=== PATIENT | male | born 1940 | race Caucasian/White ===

== ENCOUNTER 2019-11-14 08:00 | Outpatient (CLI) | payer OTHER, SELFPAY ==
--- NOTE | 2019-11-14 08:03 | CT_ITS ---
WS: [id number] CT CHEST WITH INTRAVENOUS CONTRAST HISTORY: COUGH TECHNIQUE: Contiguous 5 mm axial imaging performed on the thorax. Coronal and sagittal reformats are submitted. All CT scans at [facility] use at least one of these dose optimization techniq ues: automated exposure control; mA and/or kV adjustment per patient size (includes targeted exams wh ere dose is matched to clinical indication); or iterative reconstruction. CONTRAST: Omnipaque 300; 95 mL IV. DLP: 650.25 mGy.cm COMPARISON: 09/07/2011 Lungs and central airway: Moderate left-sided volume loss. LEFT lower lobectomy. There is extensive p leural calcification present bilaterally. Mild pleural thickening throughout the LEFT pleural space. The extent of the pleural thickening and calcification is similar to prior studies. No suspicious mas ses or nodules are identified. Pleura: Extensive pleural calcification is stable. Heart and pericardium: Mild enlargement of the heart chambers. No pericardial effusion. Mediastinum and adri: No mediastinal or hilar adenopathy. Prior CABG. Vessels: Extensive calcification in the [place] coronary arteries. Moderate atherosclerotic plaque wit hin the aorta. Pulmonary artery size is enlarged measuring 3.4 cm diameter. Chest wall and lower neck: Subxiphoid hernia. Herniation of adipose tissue through the defect. Upper abdomen: Small hiatal hernia. Bilateral renal cysts. Bilateral renal masses are too small to ch aracterize. The largest cyst is incompletely visualized in the LEFT kidney measuring 2.3 x 4.5 cm. No adrenal mass. Visualized gallbladder is negative. Osseous structures: Mild increased kyphosis. CT/CT chest w con* [id number] IMPRESSION: 1. 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 2. No suspicious mass or nodule. 3. Partial LEFT lung resection is stable.
[2019-11-14] MEDS: iohexol 300 mg/mL 100 mL Btl IV (08:33)
== END 2019-11-14 08:01 | disposition home or self-care (01) ==
LOC: CT 08:01
PROVIDERS: Family Provider Family Medicine; Visit Provider Family Medicine
DX: R05 Cough (principal); J94.8 Other specified pleural conditions
CPT/HCPCS: 71260

== ENCOUNTER 2020-04-22 | Outpatient (CLI) | payer OTHER, SELFPAY | END 2020-04-22 23:00 | disposition home or self-care (01) | LOC: RAD 05-15 12:39 | PROVIDERS: PCP Emergency Medicine Emergency Medical Services; Visit Provider Internal Medicine Critical Care Medicine | DX: I25.10 Atherosclerotic heart disease of native coronary artery without angina pectoris (principal); R07.9 Chest pain, unspecified | CPT/HCPCS: 93017 ==

== ENCOUNTER 2020-04-22 07:21 | Outpatient (CLI) | payer OTHER, SELFPAY ==
--- NOTE | 2020-04-22 08:00 | USCV_ITS ---
Yony Renzo Age: 79 Gender: M : 1940 Exam Date: 04/22/2020 08:27 Ordering Phys: Bette Carvalho MD Technologist: Jake Garsia Exam Location: [facility] [place]: HEART FAILURE BP: 130 / 75 HR: 68 Rhythm: Sinus Technical Quality: Good MEASUREMENTS (Male / Female) Normal Values 2D ECHO LV Diastolic Diameter PLAX 3.9 cm 4.2 - 5.9 / 3.9 - 5.3 cm LV Systolic Diameter PLAX 2.3 cm IVS Diastolic Thickness 0.9 cm 0.6 - 1.0 / 0.6 - 0.9 cm IVS Systolic Thickness 1.5 cm LVPW Diastolic Thickness 1.1 cm 0.6 - 1.0 / 0.6 - 0.9 cm LVPW Systolic Thickness 1.2 cm LVOT Diameter 2.0 cm LV Ejection Fraction 2D Teich 72.7 % LV Ejection Fraction MOD 2C 50.4 % LV Ejection Fraction 2C AL 50.1 % LA Diameter 4.8 cm LA Width 3.9 cm LA Height 5.1 cm RA Width 4.2 cm RA Height 4.6 cm Aorta at Sinotubular Diameter 2.7 cm M-MODE LV Diastolic Diameter MM 5.6 cm 4.2 - 5.9 / 3.9 - 5.3 cm LV Systolic Diameter MM 3.0 cm LV Ejection Fraction MM Teich 77.3 % IVS Diastolic Thickness MM 1.2 cm 0.6 - 1.0 / 0.6 - 0.9 cm IVS Systolic Thickness MM 2.1 cm LVPW Diastolic Thickness MM 1.3 cm 0.6 - 1.0 / 0.6 - 0.9 cm LVPW Systolic Thickness MM 1.8 cm RV Diastolic Diameter MM 1.2 cm Aortic Annulus Diameter 3.8 cm LA Ao Ratio MM 1.3 MV E Point Septal Separation 0.7 cm DOPPLER AV Peak Velocity 129.0 cm/s LVOT Peak Velocity 84.0 cm/s AV Area Cont Eq vti 2.4 cm squared AV Area Cont Eq pk 2.1 cm squared MV Area PHT 5.0 cm squared Mitral E to A Ratio 1.1 MV E' Velocity 9.0 cm/s Mitral E to MV E' Ratio 10.7 Mitral E to LV E' Lateral Ratio 9.2 Mitral E to LV E' Septal Ratio 13.0 TR Peak Velocity 356.0 cm/s TR Peak Gradient 50.8 mmHg TV Peak E Velocity 71.0 cm/s Right Atrial Pressure 3.0 mmHg Pulmonary Artery Systolic Pressu 53.7 mmHg PV Peak Velocity 97.0 cm/s FINDINGS Left Ventricle Normal left ventricular cavity size. Normal left ventricular systolic function. No regional wall motion abnormalities. Left ventricular ejection fraction is estimated at 65 %. Grade I/IV diastolic dysfunction (abnormal relaxation filling pattern), normal to mildly elevated filling pressures. Right Ventricle The right ventricle is normal in size and function. Moderate pulmonary hypertension, RVSP 53.7 mmHg. Right Atrium The right atrium is normal in size. Left Atrium Moderately increased left atrial size. Mitral Valve Moderately thickened mitral valve. Moderate mitral annular calcification. Mild mitral valve regurgitation. Aortic Valve Mild aortic valve calcification. No aortic valve stenosis. Tricuspid Valve Mild tricuspid valve regurgitation. Pulmonic Valve Trace pulmonary valve regurgitation. Pericardium Normal pericardium without effusion. Aorta Normal ascending aorta dimension. CONCLUSIONS 1-Normal left ventricular cavity size. Normal left ventricular systolic function. No regional wall motion abnormalities. Left ventricular ejection fraction is estimated at 65 %. Grade I/IV diastolic dysfunction (abnormal relaxation filling pattern), normal to mildly elevated filling pressures. 2-Moderately increased left atrial size. 3-Moderately thickened mitral valve. Moderate mitral annular calcification. Mild mitral valve regurgitation. 4-Mild tricuspid valve regurgitation. 5-The right ventricle is normal in size and function. Moderate pulmonary hypertension, RVSP 53.7 mmHg. 6-Right atrial pressure is around 5 mm of mercury. 7-There are no prior echocardiogram studies to compare. Gianluca Shaver MD (Electronically Signed) Final Date: 22 April 2020 23:09 S
--- NOTE | 2020-04-22 08:08 | ECG_ITS ---
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 Interpretive Statements NAME OF STUDY: LEXISCAN SESTAMIBI STRESS TEST INDICATION: Chest Pain NOTE: Please note that this is the electrocardiogram portion of the Lexiscan/Sestamibi stress test. The perfusion scan will be documented separately. DATA: Baseline heart rate was 62 beats per minute. Baseline blood pressure was 141/71 millimeters of mercury. Target heart rate was 143. Maximum heart rate achieved was 75. which was 52 % of the predicted target heart rate. Maximum blood pressure was 144/77 millimeters of mercury. The reason for ending the test was completion of the protocol. The patient did not experience any symptoms. ELECTROCARDIOGRAM: BASELINE: Sinus rhythm. Normal axis. Otherwise, no ST-T changes suggestive of ischemia noted. No arrhythmia noted. EXERCISE: After Lexiscan injection, PVCs were noted, no ST-T changes suggestive of ischemic noted. CONCLUSION: Please note due to baseline abnormality of the EKG specificity and sensitivity of the EKG portion of LexiScan MIBI stress test will be low 1. EKG not suggestive of ischemia 2. Lexiscan injection unremarkable. 3. Perfusion scan will be documented separately. Electronically Signed On 05-01-2020 19:28:22 CDT by Gianluca Shaver M.D. [id number]
--- NOTE | 2020-04-22 08:09 | NMCV_ITS ---
NM eugene perf SPECT r/s* [id number] Renzo Bhakta Age: 79 Gender: M : 1940 Exam Date: 04/22/2020 08:45 Ordering Phys: Bette Carvalho MD Technologist: FRANCHESCA Jefferson Exam Location: [facility] Indications: HEART FAILURE STRESS TEST Please see separate stress test report in [facility] for full findings IMAGE PROTOCOL Rest/Stress 1 Lexiscan Day Radiopharmaceutical Dose (mCi) Administration Site Administered by Rest: Tc-99m 10.7 IV FRANCHESCA Wilson Sestamibi Stress:Tc-99m 32.9 IV FRANCHESCA Wilson Sestamibi Rest: 22-Apr-2020 60 Discovery 630 Stress: 22-Apr-2020 30 Discovery 630 0.4mg Lexiscan. Images obtained in supine and prone position. SPECT RESULTS Technical Quality: Excellent Raw Data Analysis: Normal Image Corrections: No attenuation or motion correction applied Summed Stress Score: 0 Summed Rest Score: 0 Summed Difference Score: 0 PERFUSION FINDINGS SPECT images demonstrate homogeneous tracer distribution throughout the myocardium. FUNCTIONAL RESULTS (calculated via Gated SPECT) Stress Image LV EF (%): 71 Stress EDV (mL):89 TID: 0.94 Stress ESV (mL):26 FUNCTIONAL FINDINGS: The left ventricle is normal in size. Transient Ischemia Dilatation of 0.94. There is normal left ventricular systolic function. There is normal left ventricular wall thickening. The left ventricular ejection fraction is normal with a value of 71%. Normal end-diastolic and end-systolic volumes. IMPRESSIONS 1. Myocardial perfusion imaging is normal. 2. Overall left ventricular systolic function is normal without regional wall motion abnormalities. 3. The left ventricular ejection fraction is normal with a value of 71%. 4. This study suggests a low likelihood of angiographically significant coronary artery disease. Nancy Silveira MD (Electronically Signed) Final Date: 22 April 2020 17:49 S
[2020-04-22 08:10] VITALS: BMI 25.7
[2020-04-22 09:48] VITALS: BP 133/67; PULSE 71
[2020-04-22] MEDS: regadenoson 0.4 Mg/5 ml Syringe IVP (09:50)
== END 2020-04-22 07:22 | disposition home or self-care (01) ==
PROVIDERS: PCP Emergency Medicine Emergency Medical Services; Visit Provider Internal Medicine Critical Care Medicine
DX: R07.9 Chest pain, unspecified (principal); R06.02 Shortness of breath; I50.9 Heart failure, unspecified; I08.1 Rheumatic disorders of both mitral and tricuspid valves; I27.20 Pulmonary hypertension, unspecified
CPT/HCPCS: 78452; 93306; A9500; J2785

== ENCOUNTER 2020-04-30 11:00 | Outpatient (CLI) | payer OTHER, SELFPAY | END 2020-04-30 11:01 | disposition home or self-care (01) | LOC: SLEEP 05-01 11:21 | PROVIDERS: PCP Emergency Medicine Emergency Medical Services; Visit Provider Internal Medicine Critical Care Medicine | DX: I50.9 Heart failure, unspecified (principal) | CPT/HCPCS: 94762 ==

== ENCOUNTER → 2020-06-04 10:00 | Outpatient (BNVA) | payer OTHER, SELFPAY | PROVIDERS: PCP Emergency Medicine Emergency Medical Services; Visit Provider Internal Medicine | DX: R06.02 Shortness of breath (principal) | CPT/HCPCS: 87635 ==

== ENCOUNTER 2020-06-06 07:33 | Outpatient (CLI) | payer OTHER, SELFPAY ==
[2020-06-06 08:48] VITALS: O2SAT 77; O2SAT 90; O2SAT 92
--- NOTE | 2020-06-06 09:37 | PFTS_ITS ---
Date of Study:06/06/20 Date of Dictation: 06/07/2020 MECHANICS: Forced vital capacity (FVC) is . Normal Forced expiratory volume in one second (FEV1) is . Normal FEV1/FVC is .. Normal No postbronchodilator study to comment on bronchodilator response FLOW VOLUME LOOP: Normal . LUNG VOLUMES: Total lung capacity (TLC) is normal. Residual volume (RV) is . Normal DIFFUSING CAPACITY FOR CARBON MONOXIDE: Moderately reduced . INTERPRETATION: Normal spirometry and lung volumes with moderately reduced gas transfer defect suggestive of pulmonary vascular pathology. Correlate clinically MTDD
== END 2020-06-06 07:34 | disposition home or self-care (01) ==
PROVIDERS: PCP Emergency Medicine Emergency Medical Services; Visit Provider Internal Medicine Critical Care Medicine
DX: I50.9 Heart failure, unspecified (principal); J44.9 Chronic obstructive pulmonary disease, unspecified
CPT/HCPCS: 94010; 94726; 94729

== ENCOUNTER 2021-03-14 11:34 | Emergency (ER) | payer OTHER, MEDICARE, SELFPAY ==
[2021-03-14 11:43] VITALS: BP 110/83; PULSE 82; RESP 30; TEMP 36.4; O2SAT 77; BMI 24.1
--- NOTE | 2021-03-14 12:10 | XR_ITS ---
WS: [id number] Exam: XR chest 1V portable [id number] Date/Time of Exam: 03/14/2021 12:10 PM Reason For Exam: SOB Comparison 10/25/2019. No acute infiltrates are seen. Extensive pulmonary parenchymal scarring and calcified pleural plaque formation noted. There are also calcified pleural plaques along both hemidiaphragms. Pleural thickeni ng at the costophrenic angles. Heart size is top limits normal. No pneumothorax. Signs of previous me sarah sternotomy. Signs of previous left thoracotomy. XR/XR chest 1V portable [id number] IMPRESSION: 1. Extensive changes of pulmonary fibrosis and calcified pleural plaque formati on involving the pleural cavities as well as the bilateral diaphragms. Asbestos -related lung disease might be a consideration. No overall change noted since p revious exam. 2. No acute process is suspected.
--- NOTE | 2021-03-14 12:10 | ECG_ITS ---
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 Measurements Intervals [place] Rate: 80 P: 62 AR: 166 QRS: 100 QRSD: 110 T: 149 QT: 374 QTc: 433 Interpretive Statements SINUS RHYTHM WITH OCCASIONAL VENTRICULAR PREMATURE COMPLEXES POSSIBLE LEFT ATRIAL ENLARGEMENT [-0.1mV P WAVE IN V1/V2] INDETERMINATE AXIS INCOMPLETE RIGHT BUNDLE BRANCH BLOCK [90+ ms QRS DURATION, TERMINAL R IN V1/V2, 40+ ms S IN I/aVL/V4/V5/V6] ST DEVIATION AND MODERATE T-WAVE ABNORMALITY, CONSIDER LATERAL ISCHEMIA [-0.1+ mV T WAVE IN I/aVL/V5/V6] No previous ECG available for comparison Electronically Signed On 03-14-2021 22:23:46 CDT by Nancy Silveira M.D. [id number]
--- NOTE | 2021-03-14 12:11 | ED_ITS ---
HPI - SOB/Dyspnea General: Chief Complaint: Shortness of Breath/Dyspnea Stated Complaint: SOB Time Seen by Provider: 03/14/21 11:56 Source: patient Mode of arrival: ambulatory Limitations: no limitations History of Present Illness: HPI Narrative: Patient is a 80-year-old male with a history of hypertension and diabetes mellitus and coronary artery disease status post CABG who presents to the emergency department with complaints of progressively worsening shortness of breath for the last 2 months or so. He states that he is not requiring oxygen supplementation and has been using oxygen at 6 L/min as needed. He states that in the last few days to 1 week he has required oxygen basically all the time. He however does not have a portable oxygen device at home. He noticed leg swelling in the last 2 days. He also endorses orthopnea. He does not have a diagnosis of congestive heart failure. MD elicited complaint: shortness of breath Onset (ago): month(s) (2) Timing: constant and progressively worsening Associated symptoms: Reports orthopnea; Deny abdominal pain, chest congestion, chest pain, cough, diaphoresis, dizziness, extremity pain, fever(s), hemoptysis, lightheadedness, myalgias, nausea, palpitations, paresthesias, polydipsia, polyuria, rash, sense of impending doom, syncope or vomiting Treatment prior to arrival: oxygen Review of Systems General: Reports: 10 or more systems reviewed and unremarkable except in HPI and below Const: Denies: fever(s) or diaphoresis Card: Reports: orthopnea; Denies: chest pain, palpitations, lightheadedness or syncope Resp: Denies: hemoptysis or chest congestion GI: Denies: abdominal pain, nausea or vomiting Musc: Denies: extremity pain Neuro: Denies: dizziness Endo: Denies: polyuria or polydipsia PFS ED PFSH: Medical History Allergic rhinitis Atelectasis of left lung Atherosclerotic heart disease of [place] coronary artery with unspecified angina pectoris BPH (benign prostatic hyperplasia) COPD (chronic obstructive pulmonary disease) Dysplasia of prostate Essential (primary) hypertension Hyperlipidemia Tinea unguium Type 2 diabetes mellitus Surgical History History of lung surgery Hx of CABG Family History Mother CAD (coronary artery disease) Father CAD (coronary artery disease) Social History Smoking and tobacco status: never smoked Alcohol intake: never Lives independently: Yes Household members: none Marital status: Single service: Yes Current occupational status: retired History of recent travel: No Current gender identity: Male Physical Exam Const: COMMON NORMALS: no acute distress, average body habitus, patient oriented x3, no limitations, healthy appearing, alert and well nourished HENMT: COMMON NORMALS: normocephalic, atraumatic and moist oral mucous membranes HEAD & SCALP: normocephalic and atraumatic Neck/C-Spine: COMMON NORMALS: no meningeal signs and no JVD Resp: COMMON NORMALS: No retractions, No use of accessory muscles and percussion normal EFFORT & INSPECTION: Yes tachypneic AUSCULTATION: rales PERCUSSION: percussion normal Cardio: COMMON NORMALS: no JVD, regular rate, regular rhythm, S1 normal heart sound present, S2 normal heart sound present, No gallops present (Cardio), No clicks present (Cardio), No murmurs present (Cardio), No rub (Cardio) and Peripheral pulses 2+ throughout RATE: regular rate RHYTHM: regular rhythm HEART SOUNDS: S1 normal heart sound present and S2 normal heart sound present PERIPHERAL PULSES: Peripheral pulses 2+ throughout GI: COMMON NORMALS: Normal to inspection, nondistended, normoactive bowel sounds present, Soft to palpation, non-tender, No hepatosplenomegaly present, no masses and no bruits PALPATION: Yes Soft to palpation and Yes No hepatosplenomegaly present Extremity: COMMON NORMALS: normal to inspection, full ROM, capillary refill normal and no calf tenderness GENERAL: Yes edema (3+ pitting pedal edema) Neuro: COMMON NORMALS: patient oriented x3 SENSORIUM/ORIENTATION: Yes alert MENINGEAL SIGNS: Yes no meningeal signs Skin: COMMON NORMALS: no rashes or lesions noted, no wounds, turgor normal, no jaundice, no petechiae and no mottling GENERAL SKIN EXAM: no rashes or lesions noted and turgor normal Course Reevaluation(s): Reevaluation #1: Discussed his lab and imaging findings with him. It appears that he may be in congestive heart failure. Advised hospital admission for intravenous diuretics but the patient declines and wants to be discharged home. He says he would like to be worked up outpatient. We will discharge him home. He will be advised to double the dose of his Lasix for a few days and then return back to his regular dose after 3 days. He voiced understanding and is in agreement with the plan Time: 15:29 Vital Signs: Vital signs: Vital Signs Temperature 97.5 F L 03/14/21 11:43 Pulse Rate 74 03/14/21 15:54 Respiratory Rate 20 H 03/14/21 15:54 Blood Pressure 114/67 03/14/21 15:54 Pulse Oximetry 92 03/14/21 15:54 MDM - SOB/Dyspnea MDM Narrative: Medical decision making narrative: 80-year-old male who presents to the emergency department with increased shortness of breath and weakness. Evaluation in the emergency department is consistent with CHF exacerbation. He was advised to be admitted to the hospital but the patient declined and decided that he wanted to try outpatient therapy. He is advised to increase the dose of his Lasix for a few days and then after 3 days return to his prior dose. He understands to return for any new or worsening symptoms. Medical Records: Attestation: I reviewed the patient's medical records. Lab Data: Attestation: I reviewed the patient's lab results. Labs: Lab Results 03/14/21 03/14/21 03/14/21 Range/Units 12:10 12:10 12:10 WBC 10.8 H (4.0-10.0) 10^3/ uL RBC 5.41 H (4.1-5.3) 10^6/u L Hgb 14.9 (11.7-16.6) g/dL Hct 46.9 (42.0-52.0) % MCV 86.7 (80-94) fL MCH 27.5 L (28.0-34.0) pg MCHC 31.8 (30.0-36.0) g/dL RDW 14.8 (12.1-15.1) % Plt Count 228 (130-400) 10^3/c mm MPV 11.7 H (7.4-10.4) fL Neut % (Auto) 76.4 % Lymph % (Auto) 13.3 % Orange % (Auto) 7.7 % Eos % (Auto) 1.6 % Baso % (Auto) 0.6 % Neut # (Auto) 8.24 H (1.8-7.7) 10^3/u L Lymph # (Auto) 1.4 (0.8-4.8) 10^3/u L Orange # (Auto) 0.8 (0.2-0.9) 10^3/u L Eos # (Auto) 0.2 (0.0-0.8) 10^3/u L Baso # (Auto) 0.1 (0.0-0.1) 10^3/u L Nucleated RBC % (a uto) 0 % Nucleated RBCs # 0.0 /100WBC Specimen Type Sample Site ABG pH (7.35-7.45) ABG pCO2 (35-45) mmHg ABG pO2 (80.0-100.0) mmH g ABG HCO3 (22-26) mmol/L ABG Base Excess (-2.0-2.0) mmol/ L Yonas Test Hematocrit (42-52) % O2 Delivery Device O2 Liters/Min % FiO2 % Seed Packer ID Sodium 136 (136-145) mmol/L Potassium 3.9 (3.5-5.1) mmol/L Chloride 100 (98-107) mmol/L Carbon Dioxide 21 L (22-29) mmol/L Anion Gap 18.9 (5-19) BUN 17 (8-23) mg/dL Creatinine 1.2 (0.7-1.2) mg/dL GFR Calculation Not Reportable Glucose 141 H (65-115) mg/dL Calculated Osmolal ity 286 (285-295) mOsm/k g Lactic Acid 4.0 H (0.5-2.2) mmol/L Lactic Acid (Sepsi s) (0.5-2.2) mmol/L Calcium 9.9 (8.5-10.5) mg/dL Total Bilirubin 0.9 (0.15-1.2) mg/dL AST 23 (0-40) U/L ALT 10 (0-41) U/L Alkaline Phosphata se 66 (40-130) IU/L Troponin T Baselin e (0-15) ng/L Troponin T 120 Min [place] (0-15) ng/L Delta Troponin T (0-10) ABS# NT-Pro-B Natriuret Pep 1208 H (0-450) pg/mL Total Protein 7.3 (6.6-8.7) g/dL Albumin 4.5 (3.5-5.2) g/dL Globulin 2.8 (1.3-4.6) g/dL 03/14/21 03/14/21 03/14/21 Range/Units 12:10 12:11 14:53 WBC (4.0-10.0) 10^3/ uL RBC (4.1-5.3) 10^6/u L Hgb (11.7-16.6) g/dL Hct (42.0-52.0) % MCV (80-94) fL MCH (28.0-34.0) pg MCHC (30.0-36.0) g/dL RDW (12.1-15.1) % Plt Count (130-400) 10^3/c mm MPV (7.4-10.4) fL Neut % (Auto) % Lymph % (Auto) % Orange % (Auto) % Eos % (Auto) % Baso % (Auto) % Neut # (Auto) (1.8-7.7) 10^3/u L Lymph # (Auto) (0.8-4.8) 10^3/u L Orange # (Auto) (0.2-0.9) 10^3/u L Eos # (Auto) (0.0-0.8) 10^3/u L Baso # (Auto) (0.0-0.1) 10^3/u L Nucleated RBC % (a uto) % Nucleated RBCs # /100WBC Specimen Type Arterial Sample Site Radial, right ABG pH 7.48 H (7.35-7.45) ABG pCO2 28.3 L (35-45) mmHg ABG pO2 61.0 L (80.0-100.0) mmH g ABG HCO3 21.3 L (22-26) mmol/L ABG Base Excess -0.9 (-2.0-2.0) mmol/ L Yonas Test Pos Hematocrit 44.6 (42-52) % O2 Delivery Device Nc O2 Liters/Min 6.0 % FiO2 44.0 % Seed Packer ID Ed Sodium (136-145) mmol/L Potassium (3.5-5.1) mmol/L Chloride (98-107) mmol/L Carbon Dioxide (22-29) mmol/L Anion Gap (5-19) BUN (8-23) mg/dL Creatinine (0.7-1.2) mg/dL GFR Calculation Glucose (65-115) mg/dL Calculated Osmolal ity (285-295) mOsm/k g Lactic Acid (0.5-2.2) mmol/L Lactic Acid (Sepsi s) (0.5-2.2) mmol/L Calcium (8.5-10.5) mg/dL Total Bilirubin (0.15-1.2) mg/dL AST (0-40) U/L ALT (0-41) U/L Alkaline Phosphata se (40-130) IU/L Troponin T Baselin e 37 H (0-15) ng/L Troponin T 120 Min [place] 30.14 H (0-15) ng/L Delta Troponin T -6.86 L (0-10) ABS# NT-Pro-B Natriuret Pep (0-450) pg/mL Total Protein (6.6-8.7) g/dL Albumin (3.5-5.2) g/dL Globulin (1.3-4.6) g/dL 03/14/21 Range/Units 14:53 WBC (4.0-10.0) 10^3/ uL RBC (4.1-5.3) 10^6/u L Hgb (11.7-16.6) g/dL Hct (42.0-52.0) % MCV (80-94) fL MCH (28.0-34.0) pg MCHC (30.0-36.0) g/dL RDW (12.1-15.1) % Plt Count (130-400) 10^3/c mm MPV (7.4-10.4) fL Neut % (Auto) % Lymph % (Auto) % Orange % (Auto) % Eos % (Auto) % Baso % (Auto) % Neut # (Auto) (1.8-7.7) 10^3/u L Lymph # (Auto) (0.8-4.8) 10^3/u L Orange # (Auto) (0.2-0.9) 10^3/u L Eos # (Auto) (0.0-0.8) 10^3/u L Baso # (Auto) (0.0-0.1) 10^3/u L Nucleated RBC % (a uto) % Nucleated RBCs # /100WBC Specimen Type Sample Site ABG pH (7.35-7.45) ABG pCO2 (35-45) mmHg ABG pO2 (80.0-100.0) mmH g ABG HCO3 (22-26) mmol/L ABG Base Excess (-2.0-2.0) mmol/ L Yonas Test Hematocrit (42-52) % O2 Delivery Device O2 Liters/Min % FiO2 % Seed Packer ID Sodium (136-145) mmol/L Potassium (3.5-5.1) mmol/L Chloride (98-107) mmol/L Carbon Dioxide (22-29) mmol/L Anion Gap (5-19) BUN (8-23) mg/dL Creatinine (0.7-1.2) mg/dL GFR Calculation Glucose (65-115) mg/dL Calculated Osmolal ity (285-295) mOsm/k g Lactic Acid (0.5-2.2) mmol/L Lactic Acid (Sepsi s) 2.3 H (0.5-2.2) mmol/L Calcium (8.5-10.5) mg/dL Total Bilirubin (0.15-1.2) mg/dL AST (0-40) U/L ALT (0-41) U/L Alkaline Phosphata se (40-130) IU/L Troponin T Baselin e (0-15) ng/L Troponin T 120 Min [place] (0-15) ng/L Delta Troponin T (0-10) ABS# NT-Pro-B Natriuret Pep (0-450) pg/mL Total Protein (6.6-8.7) g/dL Albumin (3.5-5.2) g/dL Globulin (1.3-4.6) g/dL Imaging Data^: CTA Chest: Attestation: I personally reviewed and interpreted this imaging study as follows: Radiologist's impression: [address] [id number] Scan ReportSigned Patient: Azeb Bhakta #: [id number]: 1940cct#:[id number]/Sex: 80 / MADM Date: 03/14/21Loc: ERRoom/Bed:Attending Dr: Ordering Provider/Ordering MD: Aydin Waterman MD, YANETH Date of Service: 03/14/21 Procedure(s): CT angio chest PE protcl [id number] Accession Number(s): [id number] Report Number: [id number] WS: [id number] CTA OF THE CHEST WITH PULMONARY EMBOLISM PROTOCOL TECHNIQUE: High-resolution contrast enhanced CTA of the chest with coronal and sagittal reformatted images with pulmonary embolism protocol. MIP images are also reviewed. CLINICAL INFORMATION: SOB, tachypnea, hypoxia COMPARISON: CT October, DLP: 532.[address] scans at [facility] use at least one of these dose optimization techniques: automated exposure control; mA and/or kV adjustment per patient size (includes targeted exams where dose is matched to clinical indication); or iterative reconstruction. FINDINGS: Proximal main pulmonary arteries are normal. Segmental and subsegmental pulmonary arteries appear patent. No evidence of pulmonary embolus. Small right pleural effusion with compressive atelectasis right lower lobe. Bilateral pleural plaques. Normal caliber thoracic aorta. Aortic calcification. Coronary calcification. Calcified subcarinal and right hilar lymph nodes. Prior postoperative changes partial left lobectomy. No acute pulmonary infiltrates. No focal pneumonia. Noncalcified hazy opacity left upper lobe measuring 10 mm. Recommend 3 month follow-up. Normal thoracic spine. Normal GE junction. Adrenal glands are normal. Partially visualized right renal cyst. CT/CT angio chest PE protcl [id number] IMPRESSION: 1. No evidence of pulmonary embolus. 2. Prior postoperative changes left partial lobectomy. Volume loss left lung. 3. Small right pleural effusion with compressive atelectasis right lower lobe. 4. Noncalcified hazy opacity left upper lobe measuring 10 mm. Recommend 3 month follow-up. 5. Bilateral pleural plaques are unchanged. Dictated By:Herbie Redman MDSigned By:Herbie Redman MDSigned Date/Time:03/14/21 [id number]/ 1328 EKG Data^: EKG 1: Attestation: I personally reviewed and interpreted this EKG as follows: EKG Interpretation Date: 03/14/21 EKG interpretation time: 12:51 Prior EKG tracings: available for review Interpretation: Sinus rhythm with occasional PVCs. Heart rate [address] changes. Discharge Plan Discharge Patient Disposition: Home Clinical Impression: Elevated troponin Congestive heart failure Qualifiers: Heart failure type: unspecified Heart failure chronicity: acute Qualified Code(s): I50.9 - Heart failure, unspecified Condition: Stable Prescriptions: Continued albuterol sulfate [ProAir HFA] 90 mcg/actuation HFA aerosol inhaler 2 puff INHALATION Q6H PRNRF: 0 budesonide-formoterol [Symbicort] 160-4.5 mcg/actuation HFA aerosol inhaler 2 puff INHALATION BID RF: 0 lisinopril 40 mg tablet 20 mg PO DAILY RF: 0 metformin 1,000 mg tablet 500 mg PO BID RF: 0 metoprolol tartrate 50 mg tablet 25 mg PO BID RF: 0 nifedipine 30 mg tablet extended release 30 mg PO DAILY RF: 0 simvastatin 40 mg tablet 40 mg PO DAILY RF: 0 aspirin [Adult Aspirin Regimen] 81 mg tablet,delayed release (DR/EC) 81 mg PO DAILY RF: 0 rivaroxaban 20 mg tablet 20 mg PO DAILY RF: 0 Lasix 20 mg tablet 20 mg PO DAILY 60 Days Qty: 60 RF: 0 Discharge Orders: Discharge ED (Routine); Ordered 03/14/21 Ordered By: Aydin Waterman Referrals: Bill Corley, DO [Primary Care Provider] - 1-3 days Discharge Diet: Low Salt Discharge Activity: Increase activity as tolerated Patient Instructions: Heart Failure (ED) Activity Restrictions/Additional Instructions: Return for any new or worsening symptoms. Follow-up with your primary care provider within 3 days. Increase the dose of your furosemide to 2 tablets once a day for 3 days then resume 1 tablet daily. You will need an outpatient ultrasound of your heart. You will be contacted by case management to schedule an appointment with a installment dealer. Coding Level of Care Code ED Sanitary Aide for Chg Fwd Exam Comprehensive
[2021-03-14 12:22] LABS: ABG PCO2 28.3 mmHg (35-45); ABG PH Result 7.48 (7.35-7.45); Arterial Blood Gas Hematocrit 44.6 % (42-52); Base Excess ABG -0.9 mmol/L (-2.0-2.0); Blood Gas Allen Test Pos; Blood Gas Operator Identificat ED; Blood Gas Sample Site Radial, right; Blood Gas Sample Type Arterial; HCO3 ABG 21.3 mmol/L (22-26); Oxygen Device NC
[2021-03-14 12:25] LABS: Basophils # 0.1 10^3/uL (0.0-0.1); Basophils % 0.6 %; Eosinophils # 0.2 10^3/uL (0.0-0.8); Eosinophils % 1.6 %; Hematocrit 46.9 % (42.0-52.0); Hemoglobin 14.9 g/dL (11.7-16.6); Lymphocytes # 1.4 10^3/uL (0.8-4.8); Lymphocytes % 13.3 %; Mean Corpuscular HGB Conc 31.8 g/dL (30.0-36.0); Mean Corpuscular Hemoglobin 27.5 pg (28.0-34.0); Mean Corpuscular Volume 86.7 fL (80-94); Mean Platelet Volume 11.7 fL (7.4-10.4); Monocytes # 0.8 10^3/uL (0.2-0.9); Monocytes % 7.7 %; Neutrophils # 8.24 10^3/uL (1.8-7.7); Neutrophils % 76.4 %; Nucleated Red Blood Cells % 0 %; Platelet Count 228 10^3/cmm (130-400); Red Blood Count 5.41 10^6/uL (4.1-5.3); Red Cell Distribution Width 14.8 % (12.1-15.1); White Blood Count 10.8 10^3/uL (4.0-10.0)
[2021-03-14 12:44] LABS: Alanine Aminotransferase 10 U/L (0-41); Albumin Level 4.5 g/dL (3.5-5.2); Alkaline Phosphatase 66 IU/L (40-130); Aspartate Amino Transferase 23 U/L (0-40); Blood Urea Nitrogen 17 mg/dL (8-23); Calcium 9.9 mg/dL (8.5-10.5); Carbon Dioxide 21 mmol/L (22-29); Chloride 100 mmol/L (98-107); Globulin 2.8 g/dL (1.3-4.6); Glucose 141 mg/dL (65-115); Osmolality Calculated 286 mOsm/kg (285-295); Sodium 136 mmol/L (136-145); Total Bilirubin 0.9 mg/dL (0.15-1.2); Total Protein 7.3 g/dL (6.6-8.7)
[2021-03-14 12:47] LABS: Troponin(5th) Baseline 37 ng/L (0-15)
[2021-03-14 12:50] LABS: Anion Gap 18.9 (5-19); Potassium 3.9 mmol/L (3.5-5.1)
--- NOTE | 2021-03-14 13:09 | CT_ITS ---
WS: [id number] CTA OF THE CHEST WITH PULMONARY EMBOLISM PROTOCOL TECHNIQUE: High-resolution contrast enhanced CTA of the chest with coronal and sagittal reformatted i mages with pulmonary embolism protocol. MIP images are also reviewed. CLINICAL INFORMATION: SOB, tachypnea, hypoxia COMPARISON: CT October, DLP: 532.[address] scans at [facility] use at least one of these dose optimization techniques: automat ed exposure control; mA and/or kV adjustment per patient size (includes targeted exams where dose is matched to clinical indication); or iterative reconstruction. FINDINGS: Proximal main pulmonary arteries are normal. Segmental and subsegmental pulmonary arteries appear pat ent. No evidence of pulmonary embolus. Small right pleural effusion with compressive atelectasis righ t lower lobe. Bilateral pleural plaques. Normal caliber thoracic aorta. Aortic calcification. Coronar y calcification. Calcified subcarinal and right hilar lymph nodes. Prior postoperative changes partial left lobectomy. No acute pulmonary infiltrates. No focal pneumon ia. Noncalcified hazy opacity left upper lobe measuring 10 mm. Recommend 3 month follow-up. Normal thoracic spine. Normal GE junction. Adrenal glands are normal. Partially visualized right josé l cyst. CT/CT angio chest PE protcl [id number] IMPRESSION: 1. No evidence of pulmonary embolus. 2. Prior postoperative changes left partial lobectomy. Volume loss left lung. 3. Small right pleural effusion with compressive atelectasis right lower lobe. 4. Noncalcified hazy opacity left upper lobe measuring 10 mm. Recommend 3 liliana h follow-up. 5. Bilateral pleural plaques are unchanged.
[2021-03-14 13:10] LABS: NT Pro B Type Natriuretic Pept 1208 pg/mL (0-450)
[2021-03-14] MEDS: iodixanol 320 mg/mL 100mL Btl IV (13:21)
[2021-03-14 13:34] VITALS: BP 119/58; PULSE 79; RESP 18; O2SAT 119
[2021-03-14 14:09] LABS: Reflex Lactate Order REFLEX LACTIC ORDERD
[2021-03-14 14:20] VITALS: BP 123/66; PULSE 92; RESP 20; O2SAT 92
[2021-03-14] MEDS: FUROsemide 10 mg/mL SDV 2mL 20 MG IVP (15:30)
[2021-03-14 15:33] LABS: Troponin 5 2HR 30.14 ng/L (0-15)
[2021-03-14 15:36] LABS: Troponin 5 2HR Delta -6.86 ABS# (0-10)
[2021-03-14 15:46] LABS: Lactic Acid level (Lactate) 2.3 mmol/L (0.5-2.2)
[2021-03-14 15:54] VITALS: BP 114/67; PULSE 74; RESP 20; O2SAT 92
--- NOTE | 2021-03-17 08:43 | DCPLANNER ---
manager fiber had message to schedule a follow up appointment for patient with [facility] on 03.14.21. Patient came back to the ER and was admitted to hospital on 03.17.21, no follow up appointment was made due to patient being admitted to hospital.
== END 2021-03-14 16:04 | disposition home or self-care (01) ==
PROVIDERS: Emergency Provider Family Medicine; PCP Emergency Medicine Emergency Medical Services
DX: I11.0 Hypertensive heart disease with heart failure (principal); I50.9 Heart failure, unspecified; R77.8 Other specified abnormalities of plasma proteins; Z79.82 Long term (current) use of aspirin; Z79.84 Long term (current) use of oral hypoglycemic drugs; I25.10 Atherosclerotic heart disease of native coronary artery without angina pectoris; J44.9 Chronic obstructive pulmonary disease, unspecified; I10 Essential (primary) hypertension; E78.5 Hyperlipidemia, unspecified; E11.9 Type 2 diabetes mellitus without complications; Z95.1 Presence of aortocoronary bypass graft
CPT/HCPCS: 36600; 71045; 71275; 80053; 82803; 83605; 83880; 84484; 85025; 93005; 96374; 99284; J1940; Q9967

== ENCOUNTER 2021-03-16 21:37 | Inpatient (IN) | payer OTHER, MEDICARE, SELFPAY ==
[2021-03-16 21:46] VITALS: BP 104/66; PULSE 72; RESP 30; TEMP 36.6; O2SAT 82; BMI 24.3
--- NOTE | 2021-03-16 21:54 | XRR_ITS ---
PROCEDURE INFORMATION: Exam: XR Chest Exam date and time: 03/16/2021 9:54 PM Age: 80 years old Clinical indication: Dyspnea; Additional info: SOB TECHNIQUE: Imaging protocol: XR of the chest. Views: 1 view. COMPARISON: CR XR chest 1V portable [id number] 03/14/2021 12:28 PM FINDINGS: Lungs: No acute consolidation. Pleural spaces: Stable blunting of the costophrenic angles, likely secondary to pleural thickening. Heart/Mediastinum: There is mild cardiomegaly. Bones/joints: There has been a median sternotomy. Stable pleural calcifications bilaterally. XR/XR chest 1V portable [id number] IMPRESSION: 1. No acute consolidation. 2. Mild cardiomegaly.
[2021-03-16 21:55] VITALS: BP 117/71; PULSE 66; RESP 16; O2SAT 100
--- NOTE | 2021-03-16 21:55 | ECG_ITS ---
[facility] Test Date: 2021-03-16 Pat Name: Renzo Bhakta Department: Room: Gender: Male Rhit: : 1940 Requested By: Serge Rubalcava Order Number: [id number] David MD: Buddy Mar M.D. Measurements Intervals [place]lem[place] Rate: 67 P: 40 TX: 182 QRS: -38 QRSD: 108 T: 215 QT: 399 QTc: 422 Interpretive Statements SINUS RHYTHM WITH OCCASIONAL VENTRICULAR PREMATURE COMPLEXES INDETERMINATE AXIS INCOMPLETE RIGHT BUNDLE BRANCH BLOCK [90+ ms QRS DURATION, TERMINAL R IN V1/V2, 40+ ms S IN I/aVL/V4/V5/V6] INFERIOR MYOCARDIAL INFARCTION [40+ ms Q WAVE AND/OR ST/T ABNORMALITY IN II/aVF], PROBABLY OLD MODERATE T-WAVE ABNORMALITY, CONSIDER ANTEROLATERAL ISCHEMIA [-0.1+ mV T WAVE IN V3-V6] Compared to ECG 03/14/2021 12:28:15 Myocardial infarct finding now present T-wave abnormality still present Possible ischemia still present Electronically Signed On 03-17-2021 18:47:35 CDT by Buddy Mar M.D. [id number] [email or web address]
[2021-03-16 22:00] VITALS: PULSE 72; RESP 22; O2SAT 99
[2021-03-16 22:00] LABS: Basophils # 0.1 10^3/uL (0.0-0.1); Basophils % 0.5 %; Eosinophils # 0.3 10^3/uL (0.0-0.8); Eosinophils % 2.3 %; Hemoglobin 14.2 g/dL (11.7-16.6); Lymphocytes # 1.7 10^3/uL (0.8-4.8); Lymphocytes % 14.6 %; Mean Corpuscular HGB Conc 31.6 g/dL (30.0-36.0); Mean Corpuscular Hemoglobin 27.4 pg (28.0-34.0); Mean Corpuscular Volume 86.9 fL (80-94); Monocytes # 0.9 10^3/uL (0.2-0.9); Monocytes % 8.2 %; Neutrophils # 8.52 10^3/uL (1.8-7.7); Neutrophils % 74.1 %; Nucleated Red Blood Cells % 0 %; Platelet Count 241 10^3/cmm (130-400); Red Blood Count 5.18 10^6/uL (4.1-5.3); Red Cell Distribution Width 14.8 % (12.1-15.1); White Blood Count 11.5 10^3/uL (4.0-10.0)
[2021-03-16] MEDS: FUROsemide 10 mg/mL SDV 10mL 80 MG IVP (22:04)
[2021-03-16 22:05] VITALS: BP 120/75; PULSE 68; RESP 15; O2SAT 100
[2021-03-16 22:15] LABS: Lactic Sepsis W/Reflex 3.3 mmol/L (0.5-2.2)
[2021-03-16 22:17] LABS: ABG PCO2 30.9 mmHg (35-45); ABG PH Result 7.45 (7.35-7.45); Arterial Blood Gas Hematocrit 42.6 % (42-52); Base Excess ABG -1.6 mmol/L (-2.0-2.0); Blood Gas Operator Identificat HARKR; Blood Gas Sample Site Brachial, right; Blood Gas Sample Type Arterial; Carboxyhemoglobin 0.9 %THgb (0.4-20.1); HCO3 ABG 21.4 mmol/L (22-26); HGB O2 Sat 97.8 % (95-100); Methemoglobin 0.2 % (0.4-1.5); Oxygen Device BIPAP; Total Hemoglobin 13.9 g/dL (14-18)
[2021-03-16 22:18] LABS: Troponin(5th) Baseline 36 ng/L (0-15)
[2021-03-16 22:26] VITALS: BP 112/74; PULSE 68; RESP 25; O2SAT 100
[2021-03-16 23:12] LABS: Alanine Aminotransferase 8 U/L (0-41); Albumin Level 3.8 g/dL (3.5-5.2); Alkaline Phosphatase 54 IU/L (40-130); Aspartate Amino Transferase 18 U/L (0-40); Blood Urea Nitrogen 21 mg/dL (8-23); Calcium 9.2 mg/dL (8.5-10.5); Carbon Dioxide 20 mmol/L (22-29); Chloride 100 mmol/L (98-107); Globulin 2.9 g/dL (1.3-4.6); Glucose 91 mg/dL (65-115); NT Pro B Type Natriuretic Pept 8892 pg/mL (0-450); Osmolality Calculated 285 mOsm/kg (285-295); Sodium 136 mmol/L (136-145); Total Bilirubin 0.6 mg/dL (0.15-1.2); Total Protein 6.7 g/dL (6.6-8.7)
[2021-03-16 23:45] LABS: Reflex Lactate Order REFLEX LACTIC ORDERD
--- NOTE | 2021-03-16 23:47 | P.HP_ITS ---
Providers/Chief Complaint Primary Care Provider: Bill Corley DO Chief Complaint: SOB History of Present Illness Renzo Bhakta is a 80 year old male who has history of asbestos exposure, pleural calcification, status post partial resection of left lower lobe, established coronary disease status post CABG presented today with chief complaint of shortness of breath. Patient is stating that he has been experience shortness of breath for quite some time. In last few months his shortness of breath has gotten worse, he has seen Dr. Carvalho as well who recommended Lasix because of his orthopnea and PND and weight gain. Patient [facility] with Dr. Corley. He was seen in the ER on Wednesday for shortness of breath and was prescribed Lasix. As per the patient he was not able to get his Lasix prescription over the weekend, his symptoms worsened, which he is describing as shortness of breath, dizziness, lightheadedness and acid reflux, he has not noticed any fever, diarrhea, chest pain or productive cough. He has been using 2 pillows, he sleeps on his side. He is a non-smoker. At home he uses 6 L of oxygen at home. He is also using rivaroxaban, he has no history of A. fib or DVT, he is not sure about the indication of rivaroxaban. Diagnosis in the ER revealed CHF exacerbation, pulmonary edema, initially required BiPAP to decrease work of breathing at the time of my evaluation he was on 10 L oxygen mask, high lactic acid however no signs of pneumonia on x-ray BNP 8900 with ROSLYN, he was given Lasix 80 mg IV, his symptoms improved by the time I saw him, EKG showing PVCs, otherwise sinus rhythm Review of Systems Const: Reports: fatigue; Denies: chills Eyes: Denies: change in vision ENMT: Denies: throat pain Card: Reports: swelling of feet/ankles, dyspnea on exertion and orthopnea; Denies: chest pain Resp: Reports: dyspnea and non-productive cough GI: Reports: bloating; Denies: abdominal pain : Denies: flank pain Musc: Denies: neck pain Skin/Breast: Denies: rash Neuro: Denies: headache(s) Psych: Denies: anxiety Endo: Denies: polyuria Peng/Lymph: Denies: easy bruising All/Imm: Denies: urticaria Medications/Allergies Home Medications Medication Instructions Recorded Confirmed Last Taken Type albuterol sulfate 90 mcg/actuation 2 puff INHALATION Q6H PRN 04/08/20 Unknown History aerosol inhaler aspirin 81 mg tablet,delayed 81 mg PO DAILY 04/08/20 Unknown History release budesonide-formoterol HFA 160 2 puff INHALATION BID 04/08/20 Unknown History mcg-4.5 mcg/actuation aerosol inhaler lisinopril 40 mg tablet 20 mg PO DAILY tab 04/08/20 Unknown History metformin 1,000 mg tablet 500 mg PO BID tab 04/08/20 Unknown History metoprolol tartrate 50 mg tablet 25 mg PO BID tab 04/08/20 Unknown History nifedipine 30 mg tablet,extended 30 mg PO DAILY 04/08/20 Unknown History release rivaroxaban 20 mg tablet 20 mg PO DAILY tab 04/08/20 Unknown History simvastatin 40 mg tablet 40 mg PO DAILY 04/08/20 Unknown History Lasix 20 mg PO DAILY 60 Days #60 tab 03/14/21 04/08/20 Unknown Rx Allergies Allergy/AdvReac Type Severity Reaction Status Date / Time No Known Allergies Allergy Verified 04/08/20 14:22 PFSH Acute PFSH: Medical History Allergic rhinitis Atelectasis of left lung Atherosclerotic heart disease of [place] coronary artery with unspecified angina pectoris BPH (benign prostatic hyperplasia) COPD (chronic obstructive pulmonary disease) Dysplasia of prostate Essential (primary) hypertension Hyperlipidemia Tinea unguium Type 2 diabetes mellitus Surgical History History of lung surgery Hx of CABG Family History Mother CAD (coronary artery disease) Father CAD (coronary artery disease) Social History Smoking and tobacco status: never smoked Alcohol intake: never Lives independently: Yes Household members: none Marital status: Single service: Yes Current occupational status: retired History of recent travel: No Current gender identity: Male Vitals/I&O/Wt Last Vital Signs Temp 97.9 F 03/16/21 21:46 Pulse 68 03/16/21 22:26 Resp 25 H 03/16/21 22:26 BP 112/74 03/16/21 22:26 Pulse Ox 100 03/16/21 22:26 Weight last 48 hrs Weight 66.224 kg Physical Exam Narrative: EXAM NARRATIVE: Pleasant cooperative elderly male Who appears stated age Clinical signs of fluid overload Currently saturating well on 6 L oxygen mask S1, S2 sinus rhythm with signs of heart failure lower extremity 1+ pitting edema bilaterally Bloated abdomen on tender no signs of peritonitis, soft Bilateral breath sounds with adventitious rhonchi and crackles at the bases Appropriate mood and affect Awake alert and attentive GCS 15 EOMI, PERRLA No joint swelling no sign of cellulitis Data : 03/16/21 21:51 03/16/21 22:32 Micro: Microbiology 03/16/21 22:32 Blood Culture - Preliminary Blood SPECIMEN COLLECTED 03/16/21 21:51 Blood Culture - Preliminary Blood SPECIMEN COLLECTED A&P Assessment and plan (1) Congestive heart failure: Status: Acute Qualifiers: Heart failure chronicity: acute Heart failure type: unspecified Qualified Code(s): I50.9 - Heart failure, unspecified (2) Acute and chronic respiratory failure with hypoxia: Status: Acute (3) ROSLYN (acute kidney injury): Status: Acute Additional A&P Information Acute on chronic hypoxic respiratory failure secondary to CHF exacerbation Preserved ejection fraction with grade 1 diastolic dysfunction mild tricuspid valve regurgitation moderate pulmonary hypertension Clinical signs of fluid overload with high BNP with vascular congestion on x- ray, would use Bumex for now No active signs of ACS/unstable angina Patient is a non-smoker, has history of asbestos exposure, uses 6 L of oxygen at home at baseline follows up with Dr. Enrico Patel at [facility] and Dr. Carvalho Not sure why he is on rivaroxaban, will request records, EKG showing sinus rhythm with PVCs heart rate well controlled His last echo was on 04/15, will repeat echo in the morning I do not see any acute etiology for congestive heart failure exacerbation this seems to be a chronic gradual decline Acute kidney injury: Hold lisinopril and Metformin, I do believe this is seco ndary to cardiorenal etiology anticipating provement with diuresis DVT prophylaxis continue rivaroxaban for now until his documentation from [facility] reviewed(looking at the medication this seems secondary to A. fib however I do not have active evidence) Cardiac diet Fluid restriction Full code Attestations Medical Necessity Statement*: Anticipating discharge within 48 hours will need overnight diuresis for CHF exacerbation Time Spent in Patient Care: 30mins Coding Level of Care Code Acute Freight Conductor for Chg Fwd Diagnoses Congestive heart failure I50.9 Heart failure chronicity: acute Heart failure type: unspecified Acute and chronic respiratory failure with hypoxia J96.21 ROSLYN (acute kidney injury) N17.9
--- NOTE | 2021-03-16 23:55 | ECG_ITS ---
[facility] Test Date: 2021-03-16 Pat Name: Renzo Bhakta Department: Room: 111 Gender: Male Solo Musician: : 1940 Requested By: Serge Rubalcava Order Number: [id number] David MD: Buddy Mar M.D. Measurements Intervals [place] Rate: 72 P: 19 ME: 164 QRS: 8 QRSD: 101 T: 263 QT: 381 QTc: 419 Interpretive Statements SINUS RHYTHM INDETERMINATE AXIS INCOMPLETE RIGHT BUNDLE BRANCH BLOCK [90+ ms QRS DURATION, TERMINAL R IN V1/V2, 40+ ms S IN I/aVL/V4/V5/V6] MODERATE T-WAVE ABNORMALITY, CONSIDER ANTEROLATERAL ISCHEMIA [-0.1+ mV T WAVE IN V3-V6] Compared to ECG 03/16/2021 21:48:18 Ventricular premature complex(es) no longer present Myocardial infarct finding no longer present T-wave abnormality still present Possible ischemia still present Electronically Signed On 03-17-2021 18:54:10 CDT by Buddy Mar M.D. [id number]
[2021-03-16 23:56] LABS: Troponin 5 2HR 34.45 ng/L (0-15); Troponin 5 2HR Delta -1.55 ABS# (0-10)
[2021-03-17] VITALS (27 sets, daily range): BP systolic 110–153; BP diastolic 73–126; PULSE 65–86; RESP 16–27; TEMP 36.3–37.1; O2SAT 85–99
--- NOTE | 2021-03-17 00:22 | W.ED.SOB ---
HPI - SOB/Dyspnea General: Chief Complaint: Shortness of Breath/Dyspnea Stated Complaint: SOB Time Seen by Provider: 03/16/21 21:43 History of Present Illness: HPI Narrative: 80-year-old gentleman seen in the ER 2 days prior for shortness of breath. He declined admission at that point. He returns today with increasing shortness of breath. He notes that he was not able to get his Lasix filled over the weekend. He became more short of breath, and experienced some chest pressure. On arrival, he was breathing heavily, and his oxygen saturation was in the low 80s. MD elicited complaint: shortness of breath Pertinent past history: congestive heart failure Onset (ago): hour(s) Context: other Timing: constant and progressively worsening Severity: severe Exacerbating factors: lying flat, exertion and movement Relieving factors: nothing Known history of: congestive heart failure Associated symptoms: Reports cough (mild) and nausea; Deny abdominal pain, diaphoresis, dizziness, fever(s), syncope or vomiting Treatment prior to arrival: oxygen Review of Systems Const: Denies: fever(s) or diaphoresis Eyes: Denies: change in vision ENMT: Denies: swelling of lips/tongue or sinus pain Card: Denies: syncope Resp: Reports: dyspnea and non-productive cough; Denies: productive cough or wheezing GI: Reports: nausea; Denies: abdominal pain or vomiting : Denies: difficulty urinating or hematuria Musc: Denies: neck pain or joint warmth Skin/Breast: Denies: rash or erythema Neuro: Denies: headache(s), dizziness or vertigo Psych: Denies: anxiety PFSH ED PFSH: Medical History (Reviewed 03/14/21 @ 12:23 by Aydin Waterman MD, [facility] [place]) Allergic rhinitis Atelectasis of left lung Atherosclerotic heart disease of [place] coronary artery with unspecified angina pectoris BPH (benign prostatic hyperplasia) COPD (chronic obstructive pulmonary disease) Dysplasia of prostate Essential (primary) hypertension Hyperlipidemia Tinea unguium Type 2 diabetes mellitus Surgical History (Reviewed 03/14/21 @ 12:23 by Aydin Waterman MD, [facility] [place]) History of lung surgery Hx of CABG Family History (Reviewed 03/14/21 @ 12:23 by Aydin Waterman MD, [facility] [place]) Mother CAD (coronary artery disease) Father CAD (coronary artery disease) Social History (Reviewed 03/14/21 @ 12:23 by Aydin Waterman MD, [facility] [place]) Smoking and tobacco status: never smoked Alcohol intake: never Lives independently: Yes Household members: none Marital status: Single service: Yes Current occupational status: retired History of recent travel: No Current gender identity: Male Physical Exam Const: GENERAL APPEARANCE: well kempt, in distress, ill appearing and frail appearing ORIENTATION/CONSCIOUSNESS: Yes oriented to person, Yes oriented to place and Yes oriented to time HENMT: COMMON NORMALS: normocephalic, external ears normal and Normal external nose present HEAD & SCALP: normocephalic FACE & SINUS: normal facial exam NOSE: Normal external nose present and No nasal discharge present EXTERNAL EAR: Yes external ears normal Eye: COMMON NORMALS: Equal, round and reactive pupils present, EOMs intact bilaterally and conjunctivae normal EYELID: eyelids normal CONJUNCTIVA: Yes conjunctivae normal PUPIL: Yes Equal, round and reactive pupils present Neck/C-Spine: COMMON NORMALS: full ROM GENERAL: No tracheal deviation Chest: COMMONS NORMALS: normal inspection of the chest CHEST: No tenderness Resp: EFFORT & INSPECTION: Yes tachypneic, Yes respiratory distress, No retractions, Yes uses accessory muscles and No tracheal deviation AUSCULTATION: no rhonchi, no wheezes and diminished lung sounds Cardio: COMMON NORMALS: regular rate and regular rhythm RATE: regular rate RHYTHM: regular rhythm HEART SOUNDS: no murmurs PERIPHERAL PULSES: radial pulses present GI: INSPECTION: No abdominal distension AUSCULTATION: No Hyperactive bowel sounds present and No Hypoactive bowel sounds present PALPATION: No Guarding due to palpation present (GI) and No Rigid due to palpation Neuro: SENSORIUM/ORIENTATION: Yes oriented to person, Yes oriented to place and Yes oriented to time Psych: COMMON NORMALS: mental status grossly normal APPEARANCE: Yes well kempt Skin: COMMON NORMALS: no rashes or lesions noted GENERAL SKIN EXAM: no rashes or lesions noted Course Consultations: Consultation #1: renee Vital Signs: Vital signs: Vital Signs Temperature 97.9 F 03/16/21 21:46 Pulse Rate 77 03/17/21 00:22 Respiratory Rate 22 H 03/17/21 00:22 Blood Pressure 123/76 03/17/21 00:22 Pulse Oximetry 99 03/17/21 00:22 MDM - SOB/Dyspnea MDM Narrative: Medical decision making narrative: 80-year-old gentleman presents in respiratory distress with significant hypoxia on arrival. He was first placed on oxygen, then briefly on BiPAP for about an hour and a half. His oxygen saturation improved significantly. He was given 80 mg of Lasix IV he is beginning to diurese some now. His creatinine is 1.6 up from a little over 1 at baseline. His BNP is 8900. It was 1202 days ago. His blood pressure is currently 123/76. He is still requiring significant amount of oxygen. His chest x-ray shows pulmonary fibrosis with some overlying edema. He will be admitted for treatment of congestive heart failure with hypoxic respiratory failure. Lab Data: Labs: Lab Results 03/16/21 03/16/21 03/16/21 Range/Units 21:51 21:51 21:51 WBC 11.5 H (4.0-10.0) 10^3/ uL RBC 5.18 (4.1-5.3) 10^6/u L Hgb 14.2 (11.7-16.6) g/dL Hct 45.0 (42.0-52.0) % MCV 86.9 (80-94) fL MCH 27.4 L (28.0-34.0) pg MCHC 31.6 (30.0-36.0) g/dL RDW 14.8 (12.1-15.1) % Plt Count 241 (130-400) 10^3/c mm MPV 12.0 H (7.4-10.4) fL Neut % (Auto) 74.1 % Lymph % (Auto) 14.6 % Tyrrell % (Auto) 8.2 % Eos % (Auto) 2.3 % Baso % (Auto) 0.5 % Neut # (Auto) 8.52 H (1.8-7.7) 10^3/u L Lymph # (Auto) 1.7 (0.8-4.8) 10^3/u L Tyrrell # (Auto) 0.9 (0.2-0.9) 10^3/u L Eos # (Auto) 0.3 (0.0-0.8) 10^3/u L Baso # (Auto) 0.1 (0.0-0.1) 10^3/u L Nucleated RBC % (a uto) 0 % Nucleated RBCs # 0.0 /100WBC Specimen Type Sample Site ABG pH (7.35-7.45) ABG pCO2 (35-45) mmHg ABG pO2 (80.0-100.0) mmH g ABG HCO3 (22-26) mmol/L ABG Base Excess (-2.0-2.0) mmol/ L Yonas Test Hematocrit (42-52) % Hgb O2 Saturation (95-100) % Carboxyhemoglobin (0.4-20.1) %THgb Methemoglobin (0.4-1.5) % Total Hemoglobin (14-18) g/dL O2 Delivery Device FiO2 % Hot Iron Worker ID Sodium Cancelled Potassium Cancelled Chloride Cancelled Carbon Dioxide Cancelled Anion Gap Cancelled BUN Cancelled Creatinine Cancelled GFR Calculation Cancelled Glucose Cancelled Calculated Osmolal ity Cancelled Lactic Acid 3.3 H (0.5-2.2) mmol/L Calcium Cancelled Total Bilirubin Cancelled AST Cancelled ALT Cancelled Alkaline Phosphata se Cancelled Troponin T Baselin e (0-15) ng/L Troponin T 120 Min tulalip (0-15) ng/L Delta Troponin T (0-10) ABS# NT-Pro-B Natriuret Pep Cancelled Total Protein Cancelled Albumin Cancelled Globulin Cancelled 03/16/21 03/16/21 03/16/21 Range/Units 21:51 22:00 22:32 WBC (4.0-10.0) 10^3/ uL RBC (4.1-5.3) 10^6/u L Hgb (11.7-16.6) g/dL Hct (42.0-52.0) % MCV (80-94) fL MCH (28.0-34.0) pg MCHC (30.0-36.0) g/dL RDW (12.1-15.1) % Plt Count (130-400) 10^3/c mm MPV (7.4-10.4) fL Neut % (Auto) % Lymph % (Auto) % Tyrrell % (Auto) % Eos % (Auto) % Baso % (Auto) % Neut # (Auto) (1.8-7.7) 10^3/u L Lymph # (Auto) (0.8-4.8) 10^3/u L Tyrrell # (Auto) (0.2-0.9) 10^3/u L Eos # (Auto) (0.0-0.8) 10^3/u L Baso # (Auto) (0.0-0.1) 10^3/u L Nucleated RBC % (a uto) % Nucleated RBCs # /100WBC Specimen Type Arterial Sample Site Brachial, right ABG pH 7.45 (7.35-7.45) ABG pCO2 30.9 L (35-45) mmHg ABG pO2 107.0 H (80.0-100.0) mmH g ABG HCO3 21.4 L (22-26) mmol/L ABG Base Excess -1.6 (-2.0-2.0) mmol/ L Yonas Test N/a Hematocrit 42.6 (42-52) % Hgb O2 Saturation 97.8 (95-100) % Carboxyhemoglobin 0.9 (0.4-20.1) %THgb Methemoglobin 0.2 L (0.4-1.5) % Total Hemoglobin 13.9 L (14-18) g/dL O2 Delivery Device Bipap FiO2 50.0 % Hot Iron Worker ID Harkr Sodium 136 Potassium 4.0 Chloride 100 Carbon Dioxide 20 L Anion Gap 20.0 H BUN 21 Creatinine 1.6 H GFR Calculation Not Reportable Glucose 91 Calculated Osmolal ity 285 Lactic Acid (0.5-2.2) mmol/L Calcium 9.2 Total Bilirubin 0.6 AST 18 ALT 8 Alkaline Phosphata se 54 Troponin T Baselin e 36 H (0-15) ng/L Troponin T 120 Min tulalip (0-15) ng/L Delta Troponin T (0-10) ABS# NT-Pro-B Natriuret Pep 8892 H Total Protein 6.7 Albumin 3.8 Globulin 2.9 03/16/21 Range/Units 23:24 WBC (4.0-10.0) 10^3/ uL RBC (4.1-5.3) 10^6/u L Hgb (11.7-16.6) g/dL Hct (42.0-52.0) % MCV (80-94) fL MCH (28.0-34.0) pg MCHC (30.0-36.0) g/dL RDW (12.1-15.1) % Plt Count (130-400) 10^3/c mm MPV (7.4-10.4) fL Neut % (Auto) % Lymph % (Auto) % Tyrrell % (Auto) % Eos % (Auto) % Baso % (Auto) % Neut # (Auto) (1.8-7.7) 10^3/u L Lymph # (Auto) (0.8-4.8) 10^3/u L Tyrrell # (Auto) (0.2-0.9) 10^3/u L Eos # (Auto) (0.0-0.8) 10^3/u L Baso # (Auto) (0.0-0.1) 10^3/u L Nucleated RBC % (a uto) % Nucleated RBCs # /100WBC Specimen Type Sample Site ABG pH (7.35-7.45) ABG pCO2 (35-45) mmHg ABG pO2 (80.0-100.0) mmH g ABG HCO3 (22-26) mmol/L ABG Base Excess (-2.0-2.0) mmol/ L Yonas Test Hematocrit (42-52) % Hgb O2 Saturation (95-100) % Carboxyhemoglobin (0.4-20.1) %THgb Methemoglobin (0.4-1.5) % Total Hemoglobin (14-18) g/dL O2 Delivery Device FiO2 % Hot Iron Worker ID Sodium Potassium Chloride Carbon Dioxide Anion Gap BUN Creatinine GFR Calculation Glucose Calculated Osmolal ity Lactic Acid (0.5-2.2) mmol/L Calcium Total Bilirubin AST ALT Alkaline Phosphata se Troponin T Baselin e (0-15) ng/L Troponin T 120 Min tulalip 34.45 H (0-15) ng/L Delta Troponin T -1.55 L (0-10) ABS# NT-Pro-B Natriuret Pep Total Protein Albumin Globulin Critical Care Time Critical Care Time: Critical Care Time: Yes Total Critical Care Time: 35 Attestation: This case had a high probability of a clinically significant, sudden, or life threatening deterioration of this patient's condition which required my full and direct attention, intervention and personal management. Discharge Plan Discharge Patient Disposition: Admitted As Inpatient Admit Provider: Gianluca Singleton Clinical Impression: Congestive heart failure Qualifiers: Heart failure type: unspecified Heart failure chronicity: acute Qualified Code(s): I50.9 - Heart failure, unspecified Respiratory failure Qualifiers: Chronicity: acute Respiratory failure complication: hypoxia Qualified Code(s): J96.01 - Acute respiratory failure with hypoxia Condition: Fair Coding Level of Care Code ED Traveling Plant Operator for [facility] Fwd Exam Comprehensive
--- NOTE | 2021-03-17 01:13 | USCV_ITS ---
Renzo Bhakta Age: 80 Gender: M : 1940 Exam Date: 03/17/2021 05:58 Ordering Phys: Gianluca Singleton MD Technologist: Guera Rehman [place] [facility] [place]ication: CHF EX BP: 130 / 88 HR: 78 Rhythm: Sinus Technical Quality: Adequate MEASUREMENTS (Male / Female) Normal Values 2D ECHO LV Diastolic Diameter PLAX 4.2 cm 4.2 - 5.9 / 3.9 - 5.3 cm LV Systolic Diameter PLAX 2.6 cm IVS Diastolic Thickness 1.8 cm 0.6 - 1.0 / 0.6 - 0.9 cm IVS Systolic Thickness 1.9 cm LVPW Diastolic Thickness 1.4 cm 0.6 - 1.0 / 0.6 - 0.9 cm LVPW Systolic Thickness 1.1 cm LVOT Diameter 2.0 cm LV Ejection Fraction 2D Teich 69.9 % LV Ejection Fraction MOD 2C 57.0 % LV Ejection Fraction 2C AL 55.3 % LA Diameter 4.3 cm LA Width 2.8 cm LA Height 5.0 cm RA Width 3.6 cm RA Height 4.9 cm Aorta at Sinotubular Diameter 2.8 cm M-MODE LV Diastolic Diameter MM 3.8 cm 4.2 - 5.9 / 3.9 - 5.3 cm LV Systolic Diameter MM 2.3 cm LV Ejection Fraction MM Teich 71.7 % IVS Diastolic Thickness MM 1.7 cm 0.6 - 1.0 / 0.6 - 0.9 cm IVS Systolic Thickness MM 2.3 cm LVPW Diastolic Thickness MM 1.8 cm 0.6 - 1.0 / 0.6 - 0.9 cm LVPW Systolic Thickness MM 2.6 cm Aortic Annulus Diameter 3.1 cm LA Ao Ratio MM 1.5 DOPPLER AV Peak Velocity 136.0 cm/s LVOT Peak Velocity 90.0 cm/s AV Area Cont Eq vti 2.1 cm squared AV Area Cont Eq pk 2.1 cm squared MV Peak Velocity 90.0 cm/s MV Area PHT 2.6 cm squared Mitral E to A Ratio 0.6 MV E' Velocity 29.0 cm/s Mitral E to MV E' Ratio 8.3 Mitral E to LV E' Lateral Ratio 6.2 Mitral E to LV E' Septal Ratio 12.7 TR Peak Velocity 293.9 cm/s TR Peak Gradient 34.6 mmHg TR Mean Velocity 264.2 cm/s TR Mean Gradient 29.4 mmHg TR Velocity Time Integral 110.1 cm TV Peak E Velocity 49.0 cm/s Right Atrial Pressure 3.0 mmHg Pulmonary Artery Systolic Pressu 37.6 mmHg PV Peak Velocity 119.0 cm/s RV Acceleration Time 0.0 s RV Ejection Time 0.3 s RV AcT/ET 0.2 FINDINGS Left Ventricle Normal left ventricular cavity size. Normal left ventricular systolic function. Left ventricular ejection fraction is estimated at 55 %. Flattened septum in diastole consistent with right ventricle volume overload. Right Ventricle Severely increased right ventricular size. Moderately decreased right ventricular systolic function. Moderate pulmonary hypertension, RVSP 37.6 mmHg. Right Atrium Moderately increased right atrial size. Left Atrium Mildly increased left atrial size. Mitral Valve Severely thickened mitral valve. Severe mitral annular calcification. No mitral valve stenosis. No mitral valve regurgitation. Aortic Valve Severe aortic valve calcification. Mild aortic valve stenosis, mean gradient 4.5 mmHg, SRIKANTH 2.1 cm squared. No aortic valve regurgitation. Tricuspid Valve Severe tricuspid valve regurgitation. Pulmonic Valve Structurally normal pulmonic valve without significant stenosis. There is no pulmonic regurgitation. Pericardium Normal pericardium without effusion. Aorta Normal ascending aorta dimension. CONCLUSIONS 1-Normal left ventricular cavity size. Normal left ventricular systolic function. Left ventricular ejection fraction is estimated at 55 %. Flattened septum in diastole consistent with right ventricle volume overload. 2-Severely increased right ventricular size. Moderately decreased right ventricular systolic function. Moderate pulmonary hypertension, RVSP 37.6 mmHg. 3-Moderately increased right atrial size. 4-Severely thickened mitral valve. Severe mitral annular calcification. No mitral valve stenosis. No mitral valve regurgitation. 5-Severe aortic valve calcification. Mild aortic valve stenosis, mean gradient 4.5 mmHg, SRIKANTH 2.1 cm squared. No aortic valve regurgitation. 6-Severe tricuspid valve regurgitatio. 7-There is no pericardial effusion. 8-When compared to the prior echocardiogram dated April 22, 2020 right ventricle is severely enlarged with moderate to severely depressed function. Gianluca Shaver MD (Electronically Signed) Final Date: 17 March 2021 19:52 S
[2021-03-17 01:17] LABS: Lactic Acid level (Lactate) 2.5 mmol/L (0.5-2.2)
--- NOTE | 2021-03-17 03:55 | ECG_ITS ---
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 Measurements Intervals [place] Rate: 78 P: 60 NM: 181 QRS: 57 QRSD: 111 T: 127 QT: 368 QTc: 421 Interpretive Statements SINUS RHYTHM INDETERMINATE AXIS MODERATE INTRAVENTRICULAR CONDUCTION DELAY [110+ ms QRS DURATION] ST DEVIATION AND MODERATE T-WAVE ABNORMALITY, CONSIDER ANTEROLATERAL ISCHEMIA [-0.1+ mV T WAVE IN V3-V6] Compared to ECG 03/16/2021 23:30:22 Intraventricular conduction delay now present Incomplete right bundle-branch block no longer present T-wave abnormality still present Possible ischemia still present Electronically Signed On 03-17-2021 18:54:34 CDT by Buddy Mar M.D. [id number]
--- NOTE | 2021-03-17 05:34 | PC.NURSE ---
Shift Summary Patient arrived from the ED around 0130, patient on 6L which is home amount of O2 but requires the oxymask when he gets up and uses the urinal. Patient is diuresisng well from the diuretics given in the ER. Patient is alert and oriented and lives at home independently, came in for SOB and high BNP. Patient may discharge later today depending on if he gets back to his baseline home o2 status. Patient has Bipap on standby in his room if he ends up going in respiratory distress and needs it. Patient has been appropriate and cooperative all night.
[2021-03-17 06:09] LABS: Basophils # 0.1 10^3/uL (0.0-0.1); Basophils % 0.7 %; Eosinophils # 0.3 10^3/uL (0.0-0.8); Eosinophils % 2.5 %; Hematocrit 42.4 % (42.0-52.0); Hemoglobin 13.3 g/dL (11.7-16.6); Lymphocytes # 1.6 10^3/uL (0.8-4.8); Lymphocytes % 16.4 %; Mean Corpuscular HGB Conc 31.4 g/dL (30.0-36.0); Mean Corpuscular Hemoglobin 27.4 pg (28.0-34.0); Mean Corpuscular Volume 87.4 fL (80-94); Monocytes # 0.8 10^3/uL (0.2-0.9); Monocytes % 8.2 %; Neutrophils # 7.16 10^3/uL (1.8-7.7); Neutrophils % 71.9 %; Nucleated Red Blood Cells % 0 %; Platelet Count 205 10^3/cmm (130-400); Red Blood Count 4.85 10^6/uL (4.1-5.3); Red Cell Distribution Width 14.7 % (12.1-15.1)
[2021-03-17 06:33] LABS: Anion Gap 18.2 (5-19); Blood Urea Nitrogen 20 mg/dL (8-23); Calcium 8.9 mg/dL (8.5-10.5); Carbon Dioxide 24 mmol/L (22-29); Chloride 99 mmol/L (98-107); Glucose 68 mg/dL (65-115); Osmolality Calculated 287 mOsm/kg (285-295); Potassium 3.2 mmol/L (3.5-5.1); Sodium 138 mmol/L (136-145)
[2021-03-17 06:34] LABS: Troponin 5 6HR 33.73 ng/L (0-15)
[2021-03-17 06:36] LABS: Troponin 5 6HR Delta -2.27 ng/L (0-12)
[2021-03-17 06:40] LABS: Procalcitonin 0.07 ng/mL (0-0.5)
[2021-03-17] MEDS: metoprolol tartrate 50 mg Tablet 25 MG PO ×2 (08:51→18:11)
[2021-03-17] MEDS: aspirin 81 mg EC Tablet PO (08:51)
[2021-03-17] MEDS: bumetanide 1 mg Tablet PO (08:52)
[2021-03-17] MEDS: potassium chloride ER 20 mEq Tablet 40 MEQ PO (11:57)
--- NOTE | 2021-03-17 12:00 | PC.CHAP ---
Pastoral Care Encounter/Spiritual Assessment Type of Contact [] Declined shorts sifter visit [] Patient/Family/Request visit [] Outpatient visit [] Follow-up visit [] Physician referral [] Code/Alert [] Routine visit [] Staff referral [] Actively dying [] Patient sleeping [] Family support [] [] Out of room [] Palliative care [] [] Receiving care in room [] Pre-surgical visit [] Trauma [] Long length of stay [] ICU visit [] Other: Relational/Emotional Strength [] Patient feels connected with others/family/visitors/staff [] Distress [] Loneliness/isolation [] Abandonment Spirituality of Patient [x] Person of So []x Attends Quaker of their So [x] Believes in Prayer [] Reads Bible or Confucianist materials [] There are Spiritual issues to be addressed Oil Lease Buyer Interventions [x] Prayer [] Active listening [] Non-anxious presence [] Spiritual/emotional support [] Crisis/trauma care [] Spiritual counseling [] Bereavement support [] Provided bereavement packet [] Provided Bible/devotional materials [] Provided toy/stuffed animal, coloring book to patient or family member [] Provided Communion [] Anointing/[place] [] Salvation [] Completed spiritual assessment [] Other: Impact on Illness or Injury [] Angry [] Fearful [] Anxious [] Often cries [] Exhaustion [] Unable to work [] Unable to attend roman catholic [] Unable to walk/stand [] Unable to read [] Unable to drive [] Unable to eat/drink [] Unable to sleep [] Unable to be with family [] Patient intubated [] Other: Summary Time spent with patient
--- NOTE | 2021-03-17 15:33 | PC.RESP ---
PULMONARY REHAB INFORMATION SENT TO PATIENT.
--- NOTE | 2021-03-17 15:57 | P.PN_ITS ---
Subjective Subjective: Interval history: Patient was seen and examined this morning, overnight H&P has been reviewed, currently his shortness of breath has improved. Patient continues to desaturate even with mild exertion. Vitals/I&O/Wt Last Vital Signs Temp 97.7 F 03/17/21 12:49 Pulse 75 03/17/21 12:49 Resp 17 03/17/21 12:49 BP 133/84 03/17/21 12:49 Pulse Ox 90 03/17/21 12:49 03/17/21 03/17/21 03/17/21 06:59 14:59 22:59 Intake Total 600 / 600 Output Total 1900 / 1900 725 / 725 Balance -1900 / -1900 -125 / -125 Weight last 48 hrs Weight 66.224 kg Physical Exam Const: COMMON NORMALS: patient oriented x3 HENMT: COMMON NORMALS: normocephalic and atraumatic HEAD & SCALP: nor mocephalic and atraumatic Resp: COMMON NORMALS: clear to auscultation bilaterally AUSCULTATION: clear to auscultation bilaterally Cardio: COMMON NORMALS: regular rate, regular rhythm, S1 normal heart sound present, S2 normal heart sound present, No gallops present (Cardio), No rub (Cardio) and Peripheral pulses 2+ throughout RATE: regular rate RHYTHM: regular rhythm HEART SOUNDS: S1 normal heart sound present and S2 normal heart sound present PERIPHERAL PULSES: Peripheral pulses 2+ throughout OTHER: Pansystolic murmur in mitral area, as well as rt lower sternal border. GI: COMMON NORMALS: Normal to inspection, nondistended, normoactive bowel isabella nds present, Soft to palpation, non-tender, No hepatosplenomegaly present and no masses AUSCULTATION: Yes normoactive bowel sounds PALPATION: Yes Soft to palpation and Yes No hepatosplenomegaly present RECTAL EXAM: Yes deferred Extremity: COMMON NORMALS: no clubbing, cyanosis or edema and no pedal edema Neuro: COMMON NORMALS: patient oriented x3 Data : 03/17/21 04:19 03/17/21 04:19 Micro: Microbiology 03/16/21 22:32 Blood Culture - Preliminary Blood SPECIMEN COLLECTED 03/16/21 21:51 Blood Culture - Preliminary Blood SPECIMEN COLLECTED A&P Assessment and plan (1) Congestive heart failure: Status: Acute Qualifiers: Heart failure chronicity: acute Heart failure type: unspecified Qualified Code(s): I50.9 - Heart failure, unspecified (2) Acute and chronic respiratory failure with hypoxia: Status: Acute (3) ROSLYN (acute kidney injury): Status: Acute Additional A&P Information Acute on chronic hypoxic respiratory failure secondary to CHF exacerbation Preserved ejection fraction with grade 1 diastolic dysfunction mild tricuspid valve regurgitation moderate pulmonary hypertension Clinical signs of fluid overload with high BNP with vascular congestion on x- ray, would use Bumex for now No active signs of ACS/unstable angina Patient is a non-smoker, has history of asbestos exposure, uses 6 L of oxygen at home at baseline follows up with Dr. Enrico Patel at [facility] and Dr. Carvalho Not sure why he is on rivaroxaban, will request records, EKG showing sinus rhythm with PVCs heart rate well controlled His last echo was on 04/15, will repeat echo in the morning I do not see any acute etiology for congestive heart failure exacerbation this seems to be a chronic gradual decline Acute kidney injury: Hold lisinopril and Metformin, I do believe this is secondary to cardiorenal etiology anticipating provement with diuresis DVT prophylaxis continue rivaroxaban for now until his documentation from [facility] reviewed(looking at the medication this seems secondary to A. fib however I do not have active evidence) Cardiac diet Fluid restriction Full code Attestations Medical Necessity Statement*: Patient needs to be in hospital for management of decompensated heart failure. Coding Level of Care Code Acute Storage Worker for Dylan Villela Diagnoses Congestive heart failure I50.9 Heart failure chronicity: acute Heart failure type: unspecified Acute and chronic respiratory failure with hypoxia J96.21 ROSLYN (acute kidney injury) N17.9
[2021-03-17] MEDS: rivaroxaban 10 mg Tablet 20 MG PO (18:11)
--- NOTE | 2021-03-17 19:50 | PC.NURSE ---
Received bedside report from MELISSA Vasques. Patient resting in bed. Reports breathing has improved. Patient on 6L NC which is his home dosing. Patient watching TV. Discussed plan for tonight. Patient verbalized understanding.
[2021-03-18] VITALS (10 sets, daily range): BP systolic 136–158; BP diastolic 81–94; PULSE 62–72; RESP 16–24; TEMP 36.5–36.8; O2SAT 88–96
[2021-03-18] MEDS: lidocaine 2% viscous 15 ML, aluminum-mag hydrox-simethicon 30 ML, sucralfate oral liq 1 GM PO (00:03)
--- NOTE | 2021-03-18 00:08 | PC.NURSE ---
Patient requesting something for indigestion. Informed Dr Singleton and doctor placed order for GI cocktail which was administered as ordered.
[2021-03-18] MEDS: metoprolol tartrate 50 mg Tablet 25 MG PO ×2 (08:25→17:45)
[2021-03-18] MEDS: aspirin 81 mg EC Tablet PO (08:28)
[2021-03-18] MEDS: bumetanide 1 mg Tablet PO (08:28)
[2021-03-18 09:11] LABS: Basophils % 0.5 %; Eosinophils # 0.2 10^3/uL (0.0-0.8); Eosinophils % 2.8 %; Hematocrit 44.8 % (42.0-52.0); Hemoglobin 13.9 g/dL (11.7-16.6); Lymphocytes # 1.1 10^3/uL (0.8-4.8); Lymphocytes % 13.3 %; Mean Corpuscular Hemoglobin 27.6 pg (28.0-34.0); Mean Corpuscular Volume 89.1 fL (80-94); Mean Platelet Volume 11.8 fL (7.4-10.4); Monocytes # 0.5 10^3/uL (0.2-0.9); Monocytes % 6.8 %; Neutrophils # 6.05 10^3/uL (1.8-7.7); Neutrophils % 76.3 %; Nucleated Red Blood Cells % 0 %; Platelet Count 200 10^3/cmm (130-400); Red Blood Count 5.03 10^6/uL (4.1-5.3); Red Cell Distribution Width 14.9 % (12.1-15.1); White Blood Count 7.9 10^3/uL (4.0-10.0)
[2021-03-18 09:27] LABS: Anion Gap 11.7 (5-19); Blood Urea Nitrogen 17 mg/dL (8-23); Calcium 8.7 mg/dL (8.5-10.5); Carbon Dioxide 28 mmol/L (22-29); Chloride 99 mmol/L (98-107); Glucose 152 mg/dL (65-115); Osmolality Calculated 285 mOsm/kg (285-295); Potassium 3.7 mmol/L (3.5-5.1); Sodium 135 mmol/L (136-145)
--- NOTE | 2021-03-18 10:00 | PC.CHAP ---
Pastoral Care Encounter/Spiritual Assessment Type of Contact [] Declined grinder operator surface tool visit [] Patient/Family/Request visit [] Outpatient visit [] Follow-up visit [] Physician referral [] Code/Alert [x] Routine visit [] Staff referral [] Actively dying [] Patient sleeping [] Family support [] [] Out of room [] Palliative care [] [] Receiving care in room [] Pre-surgical visit [] Trauma [] Long length of stay [] ICU visit [] Other: Relational/Emotional Strength [] Patient feels connected with others/family/visitors/staff [] Distress [] Loneliness/isolation [] Abandonment Spirituality of Patient [] Person of So [] Attends Confucianism of their So [] Believes in Prayer [] Reads Bible or Jainism materials [] There are Spiritual issues to be addressed Showcase Trimmer Interventions [x] Prayer [x] Active listening [x] Non-anxious presence [x] Spiritual/emotional support [] Crisis/trauma care [] Spiritual counseling [] Bereavement support [] Provided bereavement packet [] Provided Bible/devotional materials [] Provided toy/stuffed animal, coloring book to patient or family member [] Provided Communion [] Anointing/[place] [] Salvation [x] Completed spiritual assessment [] Other: Impact on Illness or Injury [] Angry [] Fearful [] Anxious [] Often cries [] Exhaustion [] Unable to work [] Unable to attend voodoo [] Unable to walk/stand [] Unable to read [] Unable to drive [] Unable to eat/drink [] Unable to sleep [] Unable to be with family [] Patient intubated [] Other: Summary patient states he is feeling much better... ready to be discharged Time spent with patient 10 min
--- NOTE | 2021-03-18 14:10 | P.PN_ITS ---
Subjective Subjective: Interval history: Patient was seen and examined this morning, currently his shortness of breath has improved. He continues to require 6 Ls supplemental oxygen via nasal cannula. Vitals/I&O/Wt Last Vital Signs Temp 97.7 F 03/18/21 11:58 Pulse 70 03/18/21 11:58 Resp 21 H 03/18/21 11:58 BP 152/92 03/18/21 11:58 Pulse Ox 88 L 03/18/21 11:58 03/17/21 03/18/21 03/18/21 22:59 06:59 14:59 Intake Total 250 / 850 100 / 950 473 / 473 Output Total 1675 / 2400 200 / 200 Balance -1425 / -1550 100 / -1450 273 / 273 Weight last 48 hrs Weight 66.224 kg Physical Exam Const: COMMON NORMALS: patient oriented x3 HENMT: COMMON NORMALS: normocephalic and atraumatic HEAD & SCALP: normocephalic and atraumatic Resp: COMMON NORMALS: clear to auscultation bilaterally AUSCULTATION: clear to auscultation bilaterally Cardio: COMMON NORMALS: regular rate, regular rhythm, S1 normal heart sound present, S2 normal heart sound present, No gallops present (Cardio), No rub (Cardio) and Peripheral pulses 2+ throughout RATE: regular rate RHYTHM: regular rhythm HEART SOUNDS: S1 normal heart sound present and S2 normal heart sound present PERIPHERAL PULSES: Peripheral pulses 2+ throughout OTHER: Pansystolic murmur in mitral area, as well as rt lower sternal border. GI: COMMON NORMALS: Normal to inspection, nondistended, normoactive bowel sounds present, Soft to palpation, non-tender, No hepatosplenomegaly present and no masses AUSCULTATION: Yes normoactive bowel sounds PALPATION: Yes Soft to palpation and Yes No hepatosplenomegaly present RECTAL EXAM: Yes deferred Extremity: COMMON NORMALS: no clubbing, cyanosis or edema and no pedal edema Neuro: COMMON NORMALS: patient oriented x3 Data : 03/18/21 08:58 03/18/21 08:58 Micro: Microbiology 03/16/21 22:32 Blood Culture - Preliminary Blood NEGATIVE TO DATE 03/16/21 21:51 Blood Culture - Preliminary Blood NEGATIVE TO DATE A&P Assessment and plan (1) Congestive heart failure: Status: Acute Qualifiers: Heart failure chronicity: acute Heart failure type: unspecified Qualified Code(s): I50.9 - Heart failure, unspecified (2) Acute and chronic respiratory failure with hypoxia: Status: Acute (3) ROSLYN (acute kidney injury): Status: Acute Additional A&P Information Acute on chronic hypoxic respiratory failure secondary to CHF exacerbation Preserved ejection fraction with grade 1 diastolic dysfunction mild tricuspid valve regurgitation moderate pulmonary hypertension Clinical signs of fluid overload with high BNP with vascular congestion on x- ray, would use Bumex for now No active signs of ACS/unstable angina Patient is a non-smoker, has history of asbestos exposure, uses 6 L of oxygen at home at baseline follows up with Dr. Enrico Patel at [facility] and Dr. Carvalho Not sure why he is on rivaroxaban, will request records, EKG showing sinus rhythm with PVCs heart rate well controlled His last echo was on 04/15 Repeat 2D echo : Normal left ventricular cavity size. Normal left ventricular systolic function. Left ventricular ejection fraction is estimated at 55 %. Flattened septum in diastole consistent with right ventricle volume overload. Severely increased right ventricular size. Moderately decreased right ventricular systolic function. Moderate pulmonary hypertension, RVSP 37.6 mmHg. Moderately increased right atrial size. Severely thickened mitral valve. Severe mitral annular calcification. No mitral valve stenosis. No mitral valve regurgitation. Severe aortic valve calcification. Mild aortic valve stenosis, mean gradient 4.5 mmHg, SRIKANTH 2.1 cm squared. No aortic valve regurgitation. Severe tricuspid valve regurgitatio. ROSLYN : Secondary to cardiorenal syndrome: Resolved with optimum diuresis : Currently serum creatinine is 0.9. Continue to monitor BMP. DVT prophylaxis continue rivaroxaban for now until his documentation from [facility] reviewed(looking at the medication this seems secondary to A. fib however I do not have active evidence) Cardiac diet Fluid restriction Full code Attestations Medical Necessity Statement*: Patient needs to be in hospital for management of decompensated heart failure. Coding Level of Care Code Acute Organ Fixer for Dylan Villela Diagnoses Congestive heart failure I50.9 Heart failure chronicity: acute Heart failure type: unspecified Acute and chronic respiratory failure with hypoxia J96.21 ROSLYN (acute kidney injury) N17.9
[2021-03-18] MEDS: rivaroxaban 10 mg Tablet 20 MG PO (17:46)
--- NOTE | 2021-03-18 18:35 | PC.NURSE ---
Pt has had an uneventful day. Resting in bed most of the day. Pt had shower and performed personal hygiene. Pt has had no complaints or pain throughout the day. Nurse will continue to monitor
--- NOTE | 2021-03-18 22:54 | PC.NURSE ---
Patient has no complaints at this time. Will monitor.
[2021-03-19 00:10] VITALS: PULSE 70; RESP 19; O2SAT 96
[2021-03-19 03:38] VITALS: PULSE 65
[2021-03-19 04:00] VITALS: BP 138/78; PULSE 60; RESP 14; O2SAT 96
[2021-03-19 08:00] VITALS: BP 153/105; PULSE 66; RESP 21; TEMP 37; O2SAT 94
[2021-03-19 08:11] LABS: Basophils # 0.1 10^3/uL (0.0-0.1); Basophils % 0.6 %; Eosinophils # 0.2 10^3/uL (0.0-0.8); Eosinophils % 2.5 %; Hematocrit 44.7 % (42.0-52.0); Hemoglobin 14.2 g/dL (11.7-16.6); Lymphocytes # 1.2 10^3/uL (0.8-4.8); Lymphocytes % 13.1 %; Mean Corpuscular HGB Conc 31.8 g/dL (30.0-36.0); Mean Corpuscular Hemoglobin 27.8 pg (28.0-34.0); Mean Corpuscular Volume 87.5 fL (80-94); Mean Platelet Volume 11.5 fL (7.4-10.4); Monocytes # 0.5 10^3/uL (0.2-0.9); Monocytes % 5.8 %; Neutrophils # 6.95 10^3/uL (1.8-7.7); Neutrophils % 77.7 %; Nucleated Red Blood Cells % 0 %; Platelet Count 206 10^3/cmm (130-400); Red Blood Count 5.11 10^6/uL (4.1-5.3); Red Cell Distribution Width 14.6 % (12.1-15.1); White Blood Count 8.9 10^3/uL (4.0-10.0)
[2021-03-19] MEDS: metoprolol tartrate 50 mg Tablet 25 MG PO (08:30)
[2021-03-19] MEDS: aspirin 81 mg EC Tablet PO (08:31)
[2021-03-19] MEDS: bumetanide 1 mg Tablet PO (08:32)
[2021-03-19 08:38] LABS: Anion Gap 14.4 (5-19); Blood Urea Nitrogen 14 mg/dL (8-23); Calcium 9.1 mg/dL (8.5-10.5); Carbon Dioxide 25 mmol/L (22-29); Chloride 99 mmol/L (98-107); Glucose 141 mg/dL (65-115); Osmolality Calculated 283 mOsm/kg (285-295); Potassium 3.4 mmol/L (3.5-5.1); Sodium 135 mmol/L (136-145)
--- NOTE | 2021-03-19 09:58 | PC.CHAP ---
Pastoral Care Encounter/Spiritual Assessment Type of Contact [] Declined [place] soundings group leader visit [] Patient/Family/Request visit [] Outpatient visit [] Follow-up visit [] Physician referral [] Code/Alert [x] Routine visit [] Staff referral [] Actively dying [] Patient sleeping [] Family support [] [] Out of room [] Palliative care [] [] Receiving care in room [] Pre-surgical visit [] Trauma [] Long length of stay [] ICU visit [] Other: Relational/Emotional Strength [] Patient feels connected with others/family/visitors/staff [] Distress [] Loneliness/isolation [] Abandonment Spirituality of Patient [] Person of So [] Attends Advent of their So [] Believes in Prayer [] Reads Bible or Holiness materials [] There are Spiritual issues to be addressed Residential Specialist Interventions [x] Prayer [x] Active listening [x] Non-anxious presence [x] Spiritual/emotional support [] Crisis/trauma care [] Spiritual counseling [] Bereavement support [] Provided bereavement packet [] Provided Bible/devotional materials [] Provided toy/stuffed animal, coloring book to patient or family member [] Provided Communion [] Anointing/[place] [] Salvation [x] Completed spiritual assessment [] Other: Impact on Illness or Injury [] Angry [] Fearful [] Anxious [] Often cries [] Exhaustion [] Unable to work [] Unable to attend orthodox [] Unable to walk/stand [] Unable to read [] Unable to drive [] Unable to eat/drink [] Unable to sleep [] Unable to be with family [] Patient intubated [] Other: Summary limited activity ... causes issues with breathing.. feeling better but weak Time spent with patient 10 min
[2021-03-19 12:00] VITALS: BP 134/92; PULSE 76; RESP 18; TEMP 36.6; O2SAT 96
[2021-03-19 13:27] VITALS: BP 134/92; PULSE 76; RESP 18; TEMP 36.6; O2SAT 96
--- NOTE | 2021-03-19 13:28 | PC.NURSE ---
Patient education provided regarding f/u appointments, medications, and d/c instructions. All patients questions and concerns answered appropriately. Patient VS stable, Pt wheeled out to ER exit. Pt family brought home oxygen for the ride home. [facility]. No prescription changed regarding oxygen.
--- NOTE | 2021-03-19 15:05 | P.DS_ITS ---
Discharge Providers Date of Admission: 03/18/21 09:30 Date of Discharge: March 19, 2021 Attending Provider at Admission: Gianluca Singleton MD Attending Provider at Discharge: Dayo Alegre MD Primary Care Provider: Bill Corley DO Diagnoses at Discharge Discharge Diagnosis (1) Congestive heart failure: Status: Resolved Qualifiers: Heart failure chronicity: acute Heart failure type: unspecified Qualified Code(s): I50.9 - Heart failure, unspecified (2) Acute and chronic respiratory failure with hypoxia: Status: Resolved (3) ROSLYN (acute kidney injury): Status: Resolved Reason for Visit Reason for Visit: SOB Hospital Course Hospital Course 80 year old male who has history of asbestos exposure, pleural calcification, status post partial resection of left lower lobe, established coronary disease status post CABG, Afib on Xarelto, was admitted with chief complaint of shortness of breath He was seen in the ER on of this for shortness of breath and was prescribed Lasix. As per the patient he was not able to get his Lasix prescription over the weekend, his symptoms worsened. He was admitted for the management of acute on chronic hypoxic respiratory failure secondary to decompensated heart failure with preserved ejection fraction, during the hospital stay he was kept on Bumex to which she responded very well, at the time of discharge he was euvolemic he was close to 3 Ls negative fluid balance. He was discharged on Lasix 40 mg p.o. daily. 2D echo: Done during the hospital stay Normal left ventricular cavity size. Normal left ventricular systolic function. Left ventricular ejection fraction is estimated at 55 %. Flattened septum in diastole consistent with right ventricle volume overload. Severely increased right ventricular size. Moderately decreased right ventricular systolic function. Moderate pulmonary hypertension, RVSP 37.6 mmHg. Moderately increased right atrial size. Severely thickened mitral valve. Severe mitral annular calcification. No mitral valve stenosis. No mitral valve regurgitation. Severe aortic valve calcification. Mild aortic valve stenosis, mean gradient 4.5 mmHg, SRIKANTH 2.1 cm squared. No aortic valve regurgitation.Severe tricuspid valve regurgitation. When compared to the prior echocardiogram dated April 22, 2020 right ventricle is severely enlarged with moderate to severely depressed function. He was also managed for ROSLYN secondary to cardiorenal syndrome, which responded well to diuresis. At the time of discharge ROSLYN has resolved serum creatinine was at its baseline. Patient overall responded well to the medical management, and was discharged in stable condition. He will continue to follow Dr. Carvalho as an outpatient.He will also see Dr. Silveira as an outpatient. Physical Exam Const: COMMON NORMALS: patient oriented x3 HENMT: COMMON NORMALS: normocephalic and atraumatic HEAD & SCALP: normocephalic and atraumatic Resp: COMMON NORMALS: clear to auscultation bilaterally AUSCULTATION: clear to auscultation bilaterally Cardio: COMMON NORMALS: regular rate, regular rhythm, S1 normal heart sound present, S2 normal heart sound present, No gallops present (Cardio), No rub (Cardio) and Peripheral pulses 2+ throughout RATE: regular rate RHYTHM: regular rhythm HEART SOUNDS: S1 normal heart sound present and S2 normal heart sound present PERIPHERAL PULSES: Peripheral pulses 2+ throughout OTHER: Pansystolic murmur in mitral area, as well as rt lower sternal border. GI: COMMON NORMALS: Normal to inspection, nondistended, normoactive bowel sounds present, Soft to palpation, non-tender, No hepatosplenomegaly present and no masses AUSCULTATION: Yes normoactive bowel sounds PALPATION: Yes Soft to palpation and Yes No hepatosplenomegaly present RECTAL EXAM: Yes deferred Extremity: COMMON NORMALS: no clubbing, cyanosis or edema and no pedal edema Neuro: COMMON NORMALS: patient oriented x3 Discharge Data Data Completed and Pending: Completed Studies During Hospitalization Category Date Time Status XR chest 1V barbra ble [id number] Urgent Exams 03/16/21 21:54 Completed CV echo complete* [id number] Routine Ultrasound 03/17/21 01:13 Completed Pending at discharge Category Date Time Status Blood Culture Sta t Lab 03/16/21 22:32 Results Labs from last 24 hours 03/19/21 03/19/21 08:00 08:00 WBC 8.9 RBC 5.11 Hgb 14.2 Hct 44.7 MCV 87.5 MCH 27.8 L MCHC 31.8 RDW 14.6 Plt Count 206 MPV 11.5 H Neut % (Auto) 77.7 Lymph % (Auto) 13.1 [place] % (Auto) 5.8 Eos % (Auto) 2.5 Baso % (Auto) 0.6 Neut # (Auto) 6.95 Lymph # (Auto) 1.2 [place] # (Auto) 0.5 Eos # (Auto) 0.2 Baso # (Auto) 0.1 Nucleated RBC % (a uto) 0 Nucleated RBCs # 0.0 Sodium 135 L Potassium 3.4 L Chloride 99 Carbon Dioxide 25 Anion Gap 14.4 BUN 14 Creatinine 1.0 GFR Calculation Not Reportable Glucose 141 H Calculated Osmolal ity 283 L Calcium 9.1 Vitals: Last Vital Signs Temp 97.8 F 03/19/21 13:27 Pulse 76 03/19/21 13:27 Resp 18 03/19/21 13:27 BP 134/92 03/19/21 13:27 Pulse Ox 96 03/19/21 13:27 Discharge Plan Discharge Patient Disposition: Home Condition: Fair Prescriptions: New Klor-Con 10 10 mEq tablet extended release 20 meq PO DAILY Qty: 30 RF: 0 Continued albuterol sulfate [ProAir HFA] 90 mcg/actuation HFA aerosol inhaler 2 puff INHALATION Q6H RF: 0 budesonide-formoterol [Symbicort] 160-4.5 mcg/actuation HFA aerosol inhaler 2 puff INHALATION BID RF: 0 lisinopril 40 mg tablet 20 mg PO DAILY RF: 0 metformin 1,000 mg tablet 500 mg PO BID RF: 0 metoprolol tartrate 50 mg tablet 25 mg PO BID RF: 0 nifedipine 30 mg tablet extended release 30 mg PO DAILY RF: 0 simvastatin 40 mg tablet 40 mg PO DAILY RF: 0 aspirin [Adult Aspirin Regimen] 81 mg tablet,delayed release (DR/EC) 81 mg PO DAILY RF: 0 rivaroxaban 20 mg tablet 20 mg PO DAILY 30 Days Qty: 30 RF: 3 Changed Lasix 20 mg tablet 40 mg PO DAILY 60 Days Qty: 60 RF: 0 Discharge Orders: Discharge Order (Routine); Ordered 03/19/21 Ordered By: Dayo Alegre Referrals: Bette Carvalho MD [Physician] - 1 month (You have a follow up appointment with Dr. Carvalho on WednesdayApril 14 at 6207. If you ahve any questions or need to reschedule please all [phone]) Nancy Silveira MD [Physician] - 1 week (You have a follow up appointment with Dr. Silveira on WednesdayMarch 26 at 145. If you have any questions or need to reschedule please call [phone].) Discharge Diet: Diabetic Discharge Activity: Resume usual activity Patient Instructions: Potassium Chloride (By mouth), Acute Kidney Injury (DC), CHF Stoplight, Opioid Safety Discharge Attestations Time Spent in Discharge Care*: less than 30 min Specific Discharge Activities: educating patient, educating and/or supporting family/caregiver, discussing with pcp/other providers, discussing with employment evaluator/case manager/social workers/dc planners, documenting/other paperwork and evaluating patient/reviewing data Status at Discharge: Cognitive status at discharge: cognitively intact , Behavioral status at discharge: cooperative , Functional status at discharge: independent ambulation Overall status at discharge: patient is back to baseline Quality Metrics Clinical Quality Measures During this hospital stay, did patient experience: None Coding Level of Care Code Acute Chg FW DC note Exam Detailed Diagnoses Congestive heart failure I50.9 Heart failure chronicity: acute Heart failure type: unspecified Acute and chronic respiratory failure with hypoxia J96.21 ROSLYN (acute kidney injury) N17.9
== END 2021-03-19 13:30 | disposition home or self-care (01) | DRG 291 ==
LOC: ER 23:17 → CSU 03-17 00:14
PROVIDERS: Admitting Provider Internal Medicine; Emergency Provider Emergency Medicine; PCP Emergency Medicine Emergency Medical Services; Visit Provider Internal Medicine
DX: I11.0 Hypertensive heart disease with heart failure (principal); J96.21 Acute and chronic respiratory failure with hypoxia; N17.9 Acute kidney failure, unspecified; I50.33 Acute on chronic diastolic (congestive) heart failure; I25.10 Atherosclerotic heart disease of native coronary artery without angina pectoris; I07.1 Rheumatic tricuspid insufficiency; J44.9 Chronic obstructive pulmonary disease, unspecified; E11.9 Type 2 diabetes mellitus without complications; I48.91 Unspecified atrial fibrillation; Z82.49 Family history of ischemic heart disease and other diseases of the circulatory system; Z95.1 Presence of aortocoronary bypass graft; Z79.01 Long term (current) use of anticoagulants; Z79.82 Long term (current) use of aspirin; Z77.090 Contact with and (suspected) exposure to asbestos; Z99.81 Dependence on supplemental oxygen; Z79.84 Long term (current) use of oral hypoglycemic drugs
CPT/HCPCS: 36415; 36600; 71045; 80048; 80053; 82805; 83605; 83880; 84145; 84484; 85025; 87040; 93005; 93306; 94660; 96374; 99291; G0378; J1940

== ENCOUNTER → 2021-03-26 14:08 | Outpatient (BNVA) | payer OTHER, SELFPAY | PROVIDERS: PCP Emergency Medicine Emergency Medical Services; Visit Provider Internal Medicine Cardiovascular Disease | DX: I50.9 Heart failure, unspecified (principal) | CPT/HCPCS: 80053; 83735; 83880 ==

== ENCOUNTER → 2021-04-23 16:22 | Outpatient (BNVA) | payer OTHER, SELFPAY | PROVIDERS: PCP Emergency Medicine Emergency Medical Services; Visit Provider Internal Medicine Cardiovascular Disease | DX: I11.0 Hypertensive heart disease with heart failure (principal); I50.9 Heart failure, unspecified; R06.02 Shortness of breath; I25.810 Atherosclerosis of coronary artery bypass graft(s) without angina pectoris; E78.5 Hyperlipidemia, unspecified; I27.20 Pulmonary hypertension, unspecified; I07.1 Rheumatic tricuspid insufficiency | CPT/HCPCS: 80048; 83735; 83880 ==

== ENCOUNTER 2021-06-27 03:31 | Inpatient (IN) | payer OTHER, MEDICARE, SELFPAY ==
[2021-06-27] VITALS (17 sets, daily range): BP systolic 99–148; BP diastolic 57–83; PULSE 60–154; RESP 20–36; TEMP 36.2–37.1; O2SAT 82–99; BMI 21.6
--- NOTE | 2021-06-27 03:36 | ECG_ITS ---
[facility] Test Date: 2021-06-27 Pat Name: Renzo Bhakta Department: Room: 102 Gender: Male Soap Maker: : [id number] Requested By: Dago Soto Order Number: [id number] David MD: Zander Lion M.D. Measurements Intervals [place] Rate: 79 P: 25 OK: 140 QRS: 114 QRSD: 114 T: 60 QT: 371 QTc: 426 Interpretive Statements SINUS RHYTHM WITH OCCASIONAL VENTRICULAR PREMATURE COMPLEXES INDETERMINATE AXIS PATTERN CONSISTENT WITH PULMONARY DISEASE POSSIBLE RIGHT VENTRICULAR HYPERTROPHY [SOME/ALL OF: PROMINENT R IN V1, LATE TRANSITION, RAD, CARLENE, SSS] NONSPECIFIC ST & T-WAVE ABNORMALITY Compared to ECG 03/17/2021 03:56:51 Ventricular premature complex(es) now present Atrial abnormality now present Intraventricular conduction delay no longer present Possible ischemia no longer present T-wave abnormality still present Electronically Signed On 06-27-2021 21:06:40 CDT by Zander Lion M.D. [id number]
--- NOTE | 2021-06-27 03:36 | XRR_ITS ---
PROCEDURE INFORMATION: Exam: XR Chest Exam date and time: 06/27/2021 3:36 AM Age: 81 years old Clinical indication: Shortness of breath; Prior surgery; Surgery date: 6+ months; Surgery type: Open heart; Additional info: Evaluate for pna TECHNIQUE: Imaging protocol: XR of the chest. Views: 1 view. COMPARISON: CR XR chest 1V portable [id number] 03/16/2021 9:58 PM FINDINGS: Lungs: Unremarkable. No consolidation. Pleural spaces: Are calcified pleural plaques present bilaterally. There are small bilateral pleural effusions blunting the costophrenic recesses bilaterally. Heart/Mediastinum: Unremarkable. No cardiomegaly. Bones/joints: Unremarkable. XR/XR chest 1V portable [id number] IMPRESSION: 1. Bilateral calcified pleural plaques. These could obscure pulmonary infiltrates. 2. Small bilateral pleural effusions blunt the costophrenic recesses.
[2021-06-27 03:58] LABS: Basophils # 0.1 10^3/uL (0.0-0.1); Basophils % 0.7 %; Eosinophils # 0.2 10^3/uL (0.0-0.8); Eosinophils % 2.6 %; Hematocrit 43.9 % (42.0-52.0); Hemoglobin 13.7 g/dL (11.7-16.6); Lymphocytes # 1.7 10^3/uL (0.8-4.8); Mean Corpuscular HGB Conc 31.2 g/dL (30.0-36.0); Mean Corpuscular Hemoglobin 28.3 pg (28.0-34.0); Mean Corpuscular Volume 90.7 fl (80-94); Mean Platelet Volume 12.6 fL (7.4-10.4); Monocytes # 0.7 10^3/uL (0.2-0.9); Monocytes % 7.6 %; Neutrophils # 6.28 10^3/uL (1.8-7.7); Neutrophils % 69.9 %; Nucleated Red Blood Cells % 0 %; Platelet Count 198 10^3/cmm (130-400); Red Blood Count 4.84 10^6/uL (4.1-5.3); Red Cell Distribution Width 19.6 % (12.1-15.1)
[2021-06-27 04:10] LABS: Fibrinogen 324 mg/dL (174-498)
--- NOTE | 2021-06-27 04:13 | ED_ITS ---
HPI - General Adult General: Chief complaint: Shortness of Breath/Dyspnea Stated complaint: SOB Time Seen by Provider: 06/27/21 03:35 History of Present Illness: HPI narrative: Patient a 81-year-old male with a history of CHF, COPD, CAD, hyperlipidemia on 6L home O2 who presents the emergency room with worsening hypoxemia. Patient was sleep today when he suddenly became short of breath and called EMS. By the time EMS arrived, patient was noted to be satting 70% on room air that improved to 90% 4 L nasal cannula patient was in the emergency room, he was observed to be satting at 84% on 4 L with improvement to 92% on 10 L nasal cannula. No increased work of breathing. Of note, patient was found to have bilateral patchy opacity in the lung [place] previously concerning for possible asbestosis. Patient denies any fever or chills, cough, runny nose or sore throat, abdominal complaints, complaints. Patient denies any chest pain. Onset: 2 hrs ago Duration: ongoing Location:home Severity: moderate Review of Systems Narrative: Constitutional: No fever, no chills. HEENT: No vision changes CV: No chest pain, no palpitations PULM: no cough, +dyspnea. GI: No abdominal pain, no N/V/D. : No dysuria MSKEL: No muscle pain SKIN: No new rashes, no lesions. NEURO: No headache, no focal weakness. HEME: No visible bruises PSYCH: Normal mood PFS ED PFSH: Medical History (Updated 06/28/21 @ 14:36 by Gianluca Shaver MD) Acute and chronic respiratory failure with hypoxia ROSLYN (acute kidney injury) Allergic rhinitis Atelectasis of left lung Atherosclerotic heart disease of [place] coronary artery with unspecified angina pectoris BPH (benign prostatic hyperplasia) Chronic atrial fibrillation Congestive heart failure Last echocardiogram demonstrated EF of 55%, severe tricuspid regurgitation, pulmonary artery pressure 37.6, mild aortic valve stenosis, right ventricular dysfunction COPD (chronic obstructive pulmonary disease) Dysplasia of prostate Essential (primary) hypertension Hyperlipidemia Respiratory failure Tinea unguium Tricuspid valve regurgitation Type 2 diabetes mellitus Surgical History History of lung surgery Hx of CABG Family History Mother CAD (coronary artery disease) Father CAD (coronary artery disease) Social History Alcohol intake: never Lives independently: Yes Household members: none Marital status: Single service: Yes Current occupational status: retired History of recent travel: No Current gender identity: Male Physical Exam Narrative: EXAM NARRATIVE: Head: Atraumatic Eyes: PERRL, conjunctiva without injection ENT: Mucous membrane moist NECK: Supple, ROM intact LUNGS: Coarse breath sounds b/l CV: RRR ABDOMEN: Soft, nontender in all quadrants EXTREMITY: Normal ROM SKIN: No rash or erythema NEURO: Awake and alert, no focal motor deficits PSYCH: Normal mood and affect Course Vital Signs: Vital signs: Vital Signs Temperature 96.9 F L 06/30/21 19:30 Pulse Rate 88 06/30/21 23:39 Respiratory Rate 22 H 06/30/21 23:39 Blood Pressure 119/83 06/30/21 21:30 Pulse Oximetry 95 06/30/21 23:39 MDM - General Adult MDM Narrative: Medical decision making narrative: Patient is a 81-year-old male who presents emergency room with worsening hypoxia x2 hours. On exam, patient is found to be in mild respiratory distress with O2 sat at 84% on 4 L that improved to 92% on 10 L nasal cannula. XR chest consistent with prior. Laboratory work-up troponin 52 initially. Patient received DuoNeb, prednisone in the ER. Patient will be admitted to the hospital for hypoxemia and respiratory distress secondary to underlying diseases Disposition: Admission for observation Lab Data: Labs: Lab Results 06/27/21 06/27/21 06/27/21 03:40 03:40 03:40 WBC 9.0 10^3/uL 10^3/ uL (4.0-10.0) RBC 4.84 10^6/uL 10^6 /uL (4.1-5.3) Hgb 13.7 g/dL g/dL (11.7-16.6) Hct 43.9 % % (42.0-52.0) MCV 90.7 fl fl (80-94) MCH 28.3 pg pg (28.0-34.0) MCHC 31.2 g/dL g/dL (30.0-36.0) RDW 19.6 % H % (12.1-15.1) Plt Count 198 10^3/cmm 10^3 /cmm (130-400) MPV 12.6 fL H fL (7.4-10.4) Neut % (Auto) 69.9 % % Lymph % (Auto) 19.0 % % [place] % (Auto) 7.6 % % Eos % (Auto) 2.6 % % Baso % (Auto) 0.7 % % Neut # (Auto) 6.28 10^3/uL 10^3 /uL (1.8-7.7) Lymph # (Auto) 1.7 10^3/uL 10^3/ uL (0.8-4.8) [place] # (Auto) 0.7 10^3/uL 10^3/ uL (0.2-0.9) Eos # (Auto) 0.2 10^3/uL 10^3/ uL (0.0-0.8) Baso # (Auto) 0.1 10^3/uL 10^3/ uL (0.0-0.1) Nucleated RBC % (a uto) 0 % % Nucleated RBCs # 0.0 /100WBC /100W BC Fibrinogen 324 mg/dL mg/dL (174-498) D-Dimer 4.26 ug/mIFEU H u g/mIFEU (0-0.59) Specimen Type Sample Site ABG pH ABG pCO2 ABG pO2 ABG HCO3 ABG Base Excess Yonas Test Hematocrit O2 Delivery Device O2 Liters/Min FiO2 Shearing Machine Operator ID Sodium 134 mmol/L L mmol /L (136-145) Potassium 4.3 mmol/L mmol/L (3.5-5.1) Chloride 101 mmol/L mmol/L (98-107) Carbon Dioxide 19 mmol/L L mmol/ L (22-29) Anion Gap 18.3 (5-19) BUN 26 mg/dL H mg/dL (8-23) Creatinine 1.2 mg/dL mg/dL (0.7-1.2) GFR Calculation Not Reportable Glucose 87 mg/dL mg/dL (65-115) Calculated Osmolal ity 282 mOsm/kg L mOs m/kg (285-295) Lactic Acid Calcium 9.1 mg/dL mg/dL (8.5-10.5) Magnesium 2.0 mg/dL mg/dL (1.7-2.3) Ferritin 74 ng/mL ng/mL (30-400) Total Bilirubin 0.9 mg/dL mg/dL (0.15-1.2) AST 30 U/L U/L (0-40) ALT 14 U/L U/L (0-41) Alkaline Phosphata se 107 IU/L IU/L (40-130) Troponin T Baselin e C-Reactive Protein 8.1 mg/L H mg/L (0.0-4.9) NT-Pro-B Natriuret Pep 07413 pg/mL H pg/ mL (0-450) Total Protein 6.9 g/dL g/dL (6.6-8.7) Albumin 4.0 g/dL g/dL (3.5-5.2) Globulin 2.9 g/dL g/dL (1.3-4.6) Procalcitonin 0.09 ng/mL ng/mL (0-0.5) SARS-CoV-2 Ag (Rap id) 06/27/21 06/27/21 06/27/21 03:40 03:40 03:50 WBC RBC Hgb Hct MCV MCH MCHC RDW Plt Count MPV Neut % (Auto) Lymph % (Auto) [place] % (Auto) Eos % (Auto) Baso % (Auto) Neut # (Auto) Lymph # (Auto) [place] # (Auto) Eos # (Auto) Baso # (Auto) Nucleated RBC % (a uto) Nucleated RBCs # Fibrinogen D-Dimer Specimen Type Sample Site ABG pH ABG pCO2 ABG pO2 ABG HCO3 ABG Base Excess Yonas Test Hematocrit O2 Delivery Device O2 Liters/Min FiO2 Shearing Machine Operator ID Sodium Potassium Chloride Carbon Dioxide Anion Gap BUN Creatinine GFR Calculation Glucose Calculated Osmolal ity Lactic Acid 2.1 mmol/L mmol/L (0.5-2.2) Calcium Magnesium Ferritin Total Bilirubin AST ALT Alkaline Phosphata se Troponin T Baselin e 52 ng/L H ng/L (0-15) C-Reactive Protein NT-Pro-B Natriuret Pep Total Protein Albumin Globulin Procalcitonin SARS-CoV-2 Ag (Rap id) Negative (Negative) 06/27/21 04:40 WBC RBC Hgb Hct MCV MCH MCHC RDW Plt Count MPV Neut % (Auto) Lymph % (Auto) [place] % (Auto) Eos % (Auto) Baso % (Auto) Neut # (Auto) Lymph # (Auto) [place] # (Auto) Eos # (Auto) Baso # (Auto) Nucleated RBC % (a uto) Nucleated RBCs # Fibrinogen D-Dimer Specimen Type Arterial Sample Site Radial, right ABG pH 7.44 (7.35-7.45) ABG pCO2 28.4 mmHg L mmHg (35-45) ABG pO2 70.6 mmHg L mmHg (80.0-100.0) ABG HCO3 19.3 mmol/L L mmo l/L (22-26) ABG Base Excess -3.7 mmol/L L mmo l/L (-2.0-2.0) Yonas Test Pos Hematocrit 37.6 % L % (42-52) O2 Delivery Device Nrb O2 Liters/Min 10.0 % % FiO2 60.0 % % Shearing Machine Operator ID [email or web address] Sodium Potassium Chloride Carbon Dioxide Anion Gap BUN Creatinine GFR Calculation Glucose Calculated Osmolal ity Lactic Acid Calcium Magnesium Ferritin Total Bilirubin AST ALT Alkaline Phosphata se Troponin T Baselin e C-Reactive Protein NT-Pro-B Natriuret Pep Total Protein Albumin Globulin Procalcitonin SARS-CoV-2 Ag (Rap id) Imaging Data^: Other Imaging: Radiologist's impression: [facility] [address] [id number] Scan ReportSigned Patient: Azeb Bhakta #: [id number]: 2Acct#:[id number]/Sex: 81 / MADM Date: 06/27/21Loc: [facility]/Bed:Attending Dr: Ordering Provider/Ordering MD: Dago Soto MD Date of Service: 06/27/21 Procedure(s): CT angio chest PE protcl [id number] Accession Number(s): [id number] Report Number: [id number] PROCEDURE INFORMATION: Exam: CTA Chest With Contrast Exam date and time: 06/27/2021 4:27 AM Age: 81 years old Clinical indication: Pain; Shortness of breath; Chest pressure; Additional info: Dimer elevation TECHNIQUE: Imaging protocol: Computed tomographic angiography of the chest with contrast. 3D rendering (Not supervised by radiologist): MIP and/or 3D reconstructed images were created by the technologist. Radiation optimization: All CT scans at this facility use at least one of these dose optimization techniques: automated exposure control; mA and/or kV adjustment per patient size (includes targeted exams where dose is matched to clinical indication); or iterative reconstruction. Contrast material: VISI 320; Contrast volume: 77 ml; Contrast route: INTRAVENOUS (IV); COMPARISON: CT angio chest PE protcl [id number] 03/14/2021 1:18 PM RADIATION DOSE METRICS: Total DLP (mGy-cm): 541.33 FINDINGS: Pulmonary arteries: Normal. No pulmonary emboli. Aorta: Unremarkable. No aortic aneurysm. No aortic dissection. Lungs: Patchy opacities superimposed over the right pleural effusion likely representing atelectasis although a right basilar infiltrate and pneumonia cannot be entirely excluded. There is a stable mildly irregular ground-glass opacity seen in the left upper lobe measuring approximately 14 mm in its greatest dimension possibly representing parenchymal scarring. Pleural spaces: There are calcified pleural plaques present bilaterally. There is a small right pleural effusion. Heart: Unremarkable. No cardiomegaly. No pericardial effusion. Lymph nodes: Unremarkable. No enlarged lymph nodes. Kidneys and ureters: A 1.7 cm hypoattenuation cystic mass seen on the upper pole of right kidney compatible with a simple cyst. Intraperitoneal space: There is a small volume ascites present. Bones/joints: Unremarkable. No acute fracture. Soft tissues: Unremarkable. CT/CT angio chest PE protcl [id number] IMPRESSION: 1. There is no evidence for pulmonary emboli. 2. Stable calcified pleural plaques present bilaterally. 3. Small right pleural effusion 4. Patchy opacities superimposed over the right pleural effusion compatible with atelectasis. A right basilar infiltrate and pneumonia cannot be entirely excluded. 5. Stable mildly irregular ground-glass opacity in the left upper lobe measuring 14 mm may represent chronic parenchymal scarring. Follow-up chest CT is suggested at 3 years and 5 years.(Reference: Yani) 6. Benign cyst in the upper pole of right kidney measuring 1.7 cm. No further workup needed. 7. Small volume ascites seen adjacent to the liver and spleen and within the lesser sac. COMMENTS: Consistent with the [employer]'s Incidental Findings Committee white paper (J Am Verenice Radiol 2018): Any incidental renal lesion less than 1 cm or classified as too small to characterize, or any incidental cystic renal lesion characterized as simple-appearing, is likely benign. No follow-up imaging is recommended for these lesions per consensus recommendations based on imaging criteria. REFERENCES: Yani Reyna, et al. Guidelines for Management of Incidental Pulmonary Nodules Detected on CT Images: From the Fleischner Society 2017. Radiology. 2017;284(1):228-243. Radiation Dose CTDIVOL = (mGy): DLP = 541.33 (mGy-cm) Dictated By:Dequan Raymond MDSigned By:Dequan Raymond MDSigned Date/Time:06/27/21617DD/ [address] [address]KZmc ReportSigned Patient: Azeb Bhakta #: [id number]: 1940cct#:[id number]/Sex: 81 / MADM Date: 06/27/21Loc: [facility]/Bed:Attending Dr: Ordering Provider/Ordering MD: Dago Soto MD Date of Service: 06/27/21 Procedure(s): XR chest 1V portable [id number] Accession Number(s): [id number] Report Number: [id number] PROCEDURE INFORMATION: Exam: XR Chest Exam date and time: 06/27/2021 3:36 AM Age: 81 years old Clinical indication: Shortness of breath; Prior surgery; Surgery date: 6+ months; Surgery type: Open heart; Additional info: Evaluate for pna TECHNIQUE: Imaging protocol: XR of the chest. Views: 1 view. COMPARISON: CR XR chest 1V portable [id number] 03/16/2021 9:58 PM FINDINGS: Lungs: Unremarkable. No consolidation. Pleural spaces: Are calcified pleural plaques present bilaterally. There are small bilateral pleural effusions blunting the costophrenic recesses bilaterally. Heart/Mediastinum: Unremarkable. No cardiomegaly. Bones/joints: Unremarkable. XR/XR chest 1V portable [id number] IMPRESSION: 1. Bilateral calcified pleural plaques. These could obscure pulmonary infiltrates. 2. Small bilateral pleural effusions blunt the costophrenic recesses. Dictated By:Dequan Raymond MDSigned By:Dequan Raymond MDSigned Date/Time:06/27/21 0533DD/ 0532 Discharge Plan Discharge Patient Disposition: Admitted As Inpatient Admit Provider: Charly Barron Clinical Impression: Hypoxemia, Acute respiratory distress Condition: Stable Coding Level of Care Code ED Etiquette Teacher for Dylan Villela
[2021-06-27 04:14] LABS: Troponin(5th) Baseline 52 ng/L (0-15)
[2021-06-27 04:15] LABS: Lactic Sepsis W/Reflex 2.1 mmol/L (0.5-2.2)
[2021-06-27 04:19] LABS: D Dimer 4.26 ug/mIFEU (0-0.59)
[2021-06-27 04:23] LABS: NT Pro B Type Natriuretic Pept 16752 pg/mL (0-450); Procalcitonin 0.09 ng/mL (0-0.5)
--- NOTE | 2021-06-27 04:27 | CTR_ITS ---
PROCEDURE INFORMATION: Exam: CTA Chest With Contrast Exam date and time: 06/27/2021 4:27 AM Age: 81 years old Clinical indication: Pain; Shortness of breath; Chest pressure; Additional info: Dimer elevation TECHNIQUE: Imaging protocol: Computed tomographic angiography of the chest with contrast. 3D rendering (Not supervised by radiologist): MIP and/or 3D reconstructed images were created by the technologist. Radiation optimization: All CT scans at this facility use at least one of these dose optimization techniques: automated exposure control; mA and/or kV adjustment per patient size (includes targeted exams where dose is matched to clinical indication); or iterative reconstruction. Contrast material: VISI 320; Contrast volume: 77 ml; Contrast route: INTRAVENOUS (IV); COMPARISON: CT angio chest PE protcl [id number] 03/14/2021 1:18 PM RADIATION DOSE METRICS: Total DLP (mGy-cm): 541.33 FINDINGS: Pulmonary arteries: Normal. No pulmonary emboli. Aorta: Unremarkable. No aortic aneurysm. No aortic dissection. Lungs: Patchy opacities superimposed over the right pleural effusion likely representing atelectasis although a right basilar infiltrate and pneumonia cannot be entirely excluded. There is a stable mildly irregular ground-glass opacity seen in the left upper lobe measuring approximately 14 mm in its greatest dimension possibly representing parenchymal scarring. Pleural spaces: There are calcified pleural plaques present bilaterally. There is a small right pleural effusion. Heart: Unremarkable. No cardiomegaly. No pericardial effusion. Lymph nodes: Unremarkable. No enlarged lymph nodes. Kidneys and ureters: A 1.7 cm hypoattenuation cystic mass seen on the upper pole of right kidney compatible with a simple cyst. Intraperitoneal space: There is a small volume ascites present. Bones/joints: Unremarkable. No acute fracture. Soft tissues: Unremarkable. CT/CT angio chest PE protcl [id number] IMPRESSION: 1. There is no evidence for pulmonary emboli. 2. Stable calcified pleural plaques present bilaterally. 3. Small right pleural effusion 4. Patchy opacities superimposed over the right pleural effusion compatible with atelectasis. A right basilar infiltrate and pneumonia cannot be entirely excluded. 5. Stable mildly irregular ground-glass opacity in the left upper lobe measuring 14 mm may represent chronic parenchymal scarring. Follow-up chest CT is suggested at 3 years and 5 years.(Reference: Yani) 6. Benign cyst in the upper pole of right kidney measuring 1.7 cm. No further workup needed. 7. Small volume ascites seen adjacent to the liver and spleen and within the lesser sac. COMMENTS: Consistent with the [employer]'s Incidental Findings Committee white paper (J Am Verenice Radiol 2018): Any incidental renal lesion less than 1 cm or classified as too small to characterize, or any incidental cystic renal lesion characterized as simple-appearing, is likely benign. No follow-up imaging is recommended for these lesions per consensus recommendations based on imaging criteria. REFERENCES: Yani Reyna, et al. Guidelines for Management of Incidental Pulmonary Nodules Detected on CT Images: From the Fleischner Society 2017. Radiology. 2017;284(1):228-243. Radiation Dose CTDIVOL = (mGy): DLP = 541.33 (mGy-cm)
[2021-06-27] MEDS: ipratropium-albuterol 3 mL Neb INHALATION ×4 (04:30→23:30)
[2021-06-27] MEDS: predniSONE 20 mg Tablet 60 MG PO (04:31)
[2021-06-27] MEDS: FUROsemide 10 mg/mL SDV 4mL 40 MG IVP (04:35)
[2021-06-27 04:48] LABS: Alanine Aminotransferase 14 U/L (0-41); Alkaline Phosphatase 107 IU/L (40-130); Aspartate Amino Transferase 30 U/L (0-40); Calcium 9.1 mg/dL (8.5-10.5); Chloride 101 mmol/L (98-107); Ferritin 74 ng/mL (30-400); Globulin 2.9 g/dL (1.3-4.6); Glucose 87 mg/dL (65-115); Total Bilirubin 0.9 mg/dL (0.15-1.2); Total Protein 6.9 g/dL (6.6-8.7)
[2021-06-27 04:51] LABS: ABG PCO2 28.4 mmHg (35-45); ABG PH Result 7.44 (7.35-7.45); Arterial Blood Gas Hematocrit 37.6 % (42-52); Base Excess ABG -3.7 mmol/L (-2.0-2.0); Blood Gas Allen Test Pos; Blood Gas Sample Type Arterial; HCO3 ABG 19.3 mmol/L (22-26); PO2 ABG 70.6 mmHg (80.0-100.0)
[2021-06-27 04:52] LABS: Blood Gas Sample Site Radial, right; Oxygen Device NRB
[2021-06-27 04:55] LABS: Anion Gap 18.3 (5-19); Blood Urea Nitrogen 26 mg/dL (8-23); Carbon Dioxide 19 mmol/L (22-29); Osmolality Calculated 282 mOsm/kg (285-295); Sodium 134 mmol/L (136-145)
[2021-06-27 04:56] LABS: C Reactive Protein 8.1 mg/L (0.0-4.9); Potassium 4.3 mmol/L (3.5-5.1)
[2021-06-27 04:58] LABS: SARS Covid-2 Antigen Negative (Negative)
[2021-06-27 05:42] LABS: Reflex Lactate Order REFLEX LACTIC ORDERD
[2021-06-27] MEDS: iodixanol 320 mg/mL 100mL Btl IV (06:00)
[2021-06-27 06:41] LABS: Lactic Acid level (Lactate) 2.1 mmol/L (0.5-2.2)
[2021-06-27 06:42] LABS: Troponin 5 2HR 43.75 ng/L (0-15)
--- NOTE | 2021-06-27 08:51 | P.HP_ITS ---
Providers/Chief Complaint Admitting Physician: Charly Barron Primary Care Provider: Bill Corley DO Chief Complaint: SOB History of Present Illness Renzo Bhakta is a 81 year old male who presents to the emergency room with complaints of gradual increased shortness of breath over the last 2 to 4 weeks. Intermittent chest tightness not related to exertion, that seems to come and go. No nausea. Occasional cough. Has been vaccinated for Covid and no personal history of Covid. No fever or productivity to cough. Feels like he is swelling more and more. Has been followed by cardiology, as well as pulmonary secondary to right ventricular dysfunction, pulmonary hypertension. He relates he is normally on 6 L of oxygen but often does not wear during the day. He always put s this on at night. Review of Systems General: Reports: 10 or more systems reviewed and unremarkable except in HPI and below Const: Denies: fever(s) or chills Eyes: Denies: change in vision ENMT: Denies: throat pain Card: Reports: chest pain Resp: Reports: dyspnea and non-productive cough; Denies: productive cough GI: Denies: abdominal pain, nausea, vomiting, hematochezia or melena : Denies: flank pain Musc: Denies: neck pain Skin/Breast: Denies: rash Neuro: Denies: headache(s) Psych: Denies: anxiety or depression Endo: Denies: polyuria Peng/Lymph: Denies: easy bruising All/Imm: Denies: urticaria Medications/Allergies Home Medications Medication Instructions Recorded Confirmed Last Taken Type albuterol sulfate 90 mcg/actuation 2 puff INHALATION Q6H 04/08/20 06/12/21 03/16/21 History aerosol inhaler aspirin 81 mg tablet,delayed 81 mg PO DAILY 04/08/20 06/12/21 03/16/21 History release budesonide-formoterol HFA 160 2 puff INHALATION BID 04/08/20 06/12/21 03/16/21 History mcg-4.5 mcg/actuation aerosol inhaler metoprolol tartrate 50 mg tablet 25 mg PO BID tab 04/08/20 06/12/21 03/16/21 H istory nifedipine 30 mg tablet,extended 30 mg PO DAILY 04/08/20 06/12/21 03/16/21 History release simvastatin 40 mg tablet 40 mg PO DAILY 04/08/20 06/12/21 03/15/21 History rivaroxaban 20 mg PO DAILY 30 Days #30 tab 03/19/21 06/12/21 Unknown Rx metformin 500 mg tablet 500 mg PO BID 03/26/21 06/12/21 Unknown History furosemide 40 mg tablet 40 mg PO DAILY tab 04/24/21 06/12/21 Unknown History potassium chloride 20 mEq 20 meq PO .COMPLEX #45 tab 04/24/21 06/12/21 Unknown Rx tablet,extended release Allergies Allergy/AdvReac Type Severity Reaction Status Date / Time No Known Allergies Allergy Verified 06/12/21 13:50 PFSH Acute PFSH: Medical History (Updated 06/27/21 @ 09:03 by Souleymane Gutierrez MD) Acute and chronic respiratory failure with hypoxia ROSLYN (acute kidney injury) Allergic rhinitis Atelectasis of left lung Atherosclerotic heart disease of [place] coronary artery with unspecified angina pectoris BPH (benign prostatic hyperplasia) Chronic atrial fibrillation Congestive heart failure Last echocardiogram demonstrated EF of 55%, severe tricuspid regurgitation, pulmonary artery pressure 37.6, mild aortic valve stenosis, right ventricular dysfunction COPD (chronic obstructive pulmonary disease) Dysplasia of prostate Essential (primary) hypertension Hyperlipidemia Respiratory failure Tinea unguium Tricuspid valve regurgitation Type 2 diabetes mellitus Surgical History History of lung surgery Hx of CABG Family History Mother CAD (coronary artery disease) Father CAD (coronary artery disease) Social History Alcohol intake: never Lives independently: Yes Household members: none Marital status: Single service: Yes Current occupational status: retired History of recent travel: No Current gender identity: Male Vitals/I&O/Wt Last Vital Signs Temp 97.8 F 06/27/21 03:32 Pulse 104 H 06/27/21 08:06 Resp 28 H 06/27/21 08:06 BP 128/81 06/27/21 08:06 Pulse Ox 96 06/27/21 08:06 Weight last 48 hrs Weight 65.453 kg Weight 58.967 kg Physical Exam Narrative: EXAM NARRATIVE: General exam is mild respiratory distress. On 15 L nonrebreather. HEENT: Pupils equally round. Oropharynx clear. Neck is supple no lymphadenopathy or thyromegaly Cardiovascular irregular, irregular with slightly accelerated rate. 2/6 systolic murmur. Lungs diminished breath sounds bilaterally but no crackles. Abdomen is soft nontender positive bowel sounds. Extremities show 2-3+ edema. Cap refill brisk Skin no rash Neuro no obvious focal deficits. Data : 06/27/21 03:40 06/27/21 03:40 Other data: EKG demonstrates atrial fibrillation, normal axis, rate slightly over 100, right ventricular hypertrophy Chest x-ray mild bibasilar effusions CTA no pulmonary embolism, small right effusion, stable calcific plaques, groundglass opacity left upper lobe possible scarring but recommend repeat CT 3 years, possible right basilar infiltrate INR 4.26 ABG with pH 7.44, PCO2 28, PO2 70 on FiO2 of 60% LFTs normal Troponin 52 with repeat of 43 BNP 16,752 CRP 8.1 Pro calcitonin 0.09 Rapid Covid negative A&P Assessment and plan (1) Acute respiratory failure: This appears to be secondary to heart failure Currently on 15 L nonrebreather. Hopefully with diuresis this will improve. Wean oxygen as tolerated. Continue pulmonary toilet which he is already on He does not appear to have traditional COPD, wheezing, or condition that will be benefited by continued steroids orally. He received a dose in the ICU but this will not be continued. Status: Acute (2) Heart failure: This appears to be related to right heart dysfunction. Left ventricular function is preserved, although certainly impaired in the setting of atrial fibrillation. Has known pulmonary hypertension, severe tricuspid regurgitation. Continue diuresis, Lasix 60 mg IV every 12 hours. Monitor for hypotension closely as he may be volume dependent for perfusion. Continue low-dose nifedipine, metoprolol that he is on at home. It appears cardiology is contemplating left and right heart catheterization. Will involve them in his care. Check TSH Status: Acute (3) Pneumonia: Possible although unlikely pneumonia right lung. Right pleural effusion is from heart failure. Procalcitonin negative. In this current. With tenuous respiratory status will initiate Zosyn, check sputum culture and MRSA PCR. The patient clinically improved and still no evidence of significant development of infection could DC antibiotic early. Status: Acute (4) Chronic atrial fibrillation: Continue metoprolol, calcium channel golden, Xarelto. Depending upon cardiology plan Xarelto may need to be held for angiogram. Status: Acute Additional A&P Information History of diabetes. Continue sliding scale insulin. Coronary artery disease. Continue beta-golden, statin Multiple other medical problems as outlined in past medical history Full code He is on Xarelto which will suffice for DVT prophylaxis Attestations Medical Necessity Statement*: Will need greater than 2 midnight stay for evaluation and treatment of congestive heart failure, respiratory failure, possible pneumonia. Time Spent in Patient Care: Greater than 35 minutes Coding Level of Care Code Acute Scheduler for [facility] Fwd Diagnoses Acute respiratory failure J96.00 Heart failure I50.9 Pneumonia J18.9 Chronic atrial fibrillation I48.20
[2021-06-27] MEDS: rivaroxaban 10 mg Tablet 20 MG PO (09:18)
[2021-06-27] MEDS: NIFEdipine ER (24 hr) 30 mg Tablet PO (09:18)
[2021-06-27] MEDS: piperacillin-tazobactam 3.375 GM in sodium chloride 0.9% (plus) 50 ML IV ×2 (09:18→18:14)
[2021-06-27] MEDS: aspirin 81 mg EC Tablet PO (09:18)
[2021-06-27 09:21] LABS: Thyroid Stimulating Hormone 2.41 uIU/mL (0.27-4.20)
[2021-06-27] MEDS: metoprolol tartrate 25 mg Tablet PO ×2 (09:27→20:14)
--- NOTE | 2021-06-27 09:36 | ECG_ITS ---
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 Measurements Intervals [place] Rate: 106 P: OK: QRS: 126 QRSD: 114 T: 168 QT: 353 QTc: 469 Interpretive Statements ATRIAL FIBRILLATION WITH RAPID VENTRICULAR RESPONSE INDETERMINATE AXIS PATTERN CONSISTENT WITH PULMONARY DISEASE POSSIBLE RIGHT VENTRICULAR HYPERTROPHY [SOME/ALL OF: PROMINENT R IN V1, LATE TRANSITION, RAD, CARLENE, SSS] NONSPECIFIC ST & T-WAVE ABNORMALITY Compared to ECG 06/27/2021 04:04:25 Sinus rhythm no longer present Ventricular premature complex(es) no longer present T-wave abnormality still present Electronically Signed On 06-27-2021 21:07:04 CDT by Zander Lion M.D. [id number]
[2021-06-27 10:18] LABS: Troponin 5 6HR 40.34 ng/L (0-15)
[2021-06-27 12:06] LABS: Glucose Point of Care 170 mg/dL (70-110)
--- NOTE | 2021-06-27 13:24 | PC.PHAR ---
pt states he takes care of his own medications-[facility]pt had a med list made up and states its his up to date - jaiden [phone] read off the list-kcl and lasix wasnt on the list she read but pt states he is taking 20meq daily on [facility] med list and 40mg daily of lasix-pts [facility] med [facility] has rivaroxaban 15mg qpm-pt states takes the 20mg daily written on 03/19/21-pt states he takes the metoprolol tartrate 25mg bid va med list has 50mg bid-notes are made in the pharmacy comments
[2021-06-27 15:43] LABS: Coronavirus Test Green County Not Detected
--- NOTE | 2021-06-27 18:06 | PM.CONSULT ---
Providers/Reason For Consult Consulting Physician/Specialty*: Cardiology Reason for Consult*: Congestive heart failure right-sided heart failure pulmonary hypertension respiratory failure Attending Physician: Souleymane Gutierrez MD Primary Care Provider: Bill Corley DO History of Present Illness History of Present Illness Renzo Bhakta is a 81 year old male past medical history significant for pulmonary hypertension, right-sided heart failure, hypertension, chronic atrial fibrillation and severe tricuspid valve regurgitation was admitted with acute respiratory distress. Patient was started on diuretics and treated for COPD exacerbation. He has not improved much and requiring BiPAP. It is the reason we have been asked to assist in his care. When I saw the patient he was not able to speak in full sentences. Whenever he lay flat his shortness of breath got worsened. He is also tachycardic with heart rate ranged from 90s to 120s. He denies chest pain. Abdominal girth has increased with possible ascites Review of Systems General: Reports: 10 or more systems reviewed and unremarkable except in HPI and below Narrative: Constitutional: No fever, no chills. HEENT: No vision changes CV: No chest pain, no palpitations PULM: no cough, +dyspnea. GI: No abdominal pain, no N/V/D. : No dysuria MSKEL: No muscle pain SKIN: No new rashes, no lesions. NEURO: No headache, no focal weakness. HEME: No visible bruises PSYCH: Normal mood Const: Denies: fever(s) or chills Eyes: Denies: change in vision ENMT: Denies: throat pain Card: Reports: chest pain Resp: Reports: dyspnea and non-productive cough; Denies: productive cough GI: Denies: abdominal pain, nausea, vomiting, hematochezia or melena : Denies: flank pain Musc: Denies: neck pain or joint warmth Skin/Breast: Denies: rash Neuro: Denies: headache(s) Psych: Denies: anxiety or depression Endo: Denies: polyuria Peng/Lymph: Denies: easy bruising All/Imm: Denies: urticaria or acute wheezing Meds/Allergies Home Medications and Allergies Home Medications Medication Instructions Recorded Confirmed Last Taken Type albuterol sulfate 90 mcg/actuation 2 puff INHALATION QID PRN 04/08/20 06/27/21 03/16/21 History aerosol inhaler aspirin 81 mg tablet,delayed 81 mg PO QAM 04/08/20 06/27/21 03/16/21 History release budesonide-formoterol HFA 160 2 puff INHALATION BID PRN 04/08/20 06/27/21 03/16/21 History mcg-4.5 mcg/actuation aerosol inhaler metoprolol tartrate 50 mg tablet 25 mg PO BID tab 04/08/20 06/27/21 03/16/21 History nifedipine 30 mg tablet,extended 30 mg PO DAILY 04/08/20 06/27/21 03/16/21 History release simvastatin 40 mg tablet 20 mg PO DAILY 04/08/20 06/27/21 03/15/21 History furosemide 40 mg tablet 40 mg PO DAILY tab 04/24/21 06/27/21 Unknown History cetirizine [Zyrtec] 10 mg PO DAILY 06/27/21 06/27/21 Unknown History lisinopril 20 mg PO DAILY 06/27/21 06/27/21 Unknown History metformin 500 mg PO BID 06/27/21 06/27/21 Unknown History multivitamin 1 tab PO DAILY PRN 06/27/21 06/27/21 Unknown History potassium chloride [Klor-Con 10] 20 meq PO DAILY 06/27/21 06/27/21 Unknown History rivaroxaban 20 mg PO DAILY 06/27/21 06/27/21 Unknown History Allergies Allergy/AdvReac Type Severity Reaction Status Date / Time No Known Allergies Allergy Verified 06/27/21 13:23 Current Medications Current Medications Generic Name Dose Route Start Last Admin Trade Name Freq PRN Reason Stop Dose Admin Albuterol/Ipratropium 3 ml 06/27/21 12:00 06/27/21 16:34 Ipratropium-Albuterol 3 Ml Neb INHALATION 3 ml Q4H.RESPIRATORY SUMMER Administration Aspirin 81 mg 06/27/21 09:00 06/27/21 09:18 Aspirin 81 Mg Ec Tablet PO 81 mg DAILY SUMMER Administration Piperacillin Sod/Tazobactam 50 mls @ 12.5 mls/hr 06/27/21 09:30 06/27/21 13:20 Sod 3.375 gm/ Sodium Chloride IV Infused Q8H SUMMER Infusion Protocol Insulin Aspart 0 unit 06/27/21 12:00 06/27/21 13:03 Insulin Aspart 100 Unit/1 Ml SUBCUT 2 unit WM&BEDTIME SUMMER Administration Protocol Metoprolol Tartrate 25 mg 06/27/21 09:00 06/27/21 09:27 Metoprolol Tartrate 25 Mg Tablet PO 25 mg BID@0900,2100 SUMMER Administration Nifedipine 30 mg 06/27/21 09:00 06/27/21 09:18 Nifedipine Er (24 Hr) 30 Mg Tablet PO 30 mg DAILY SUMMER Administration Rivaroxaban 20 mg 06/27/21 09:00 06/27/21 09:18 Rivaroxaban 10 Mg Tablet PO 20 mg DAILY SUMMER Administration PFSH Acute PFSH: Medical History (Updated 06/28/21 @ 14:36 by Gianluca Shaver MD) Acute and chronic respiratory failure with hypoxia ROSLYN (acute kidney injury) Allergic rhinitis Atelectasis of left lung Atherosclerotic heart disease of [place] coronary artery with unspecified angina pectoris BPH (benign prostatic hyperplasia) Chronic atrial fibrillation Congestive heart failure Last echocardiogram demonstrated EF of 55%, severe tricuspid regurgitation, pulmonary artery pressure 37.6, mild aortic valve stenosis, right ventricular dysfunction COPD (chronic obstructive pulmonary disease) Dysplasia of prostate Essential (primary) hypertension Hyperlipidemia Respiratory failure Tinea unguium Tricuspid valve regurgitation Type 2 diabetes mellitus Surgical History History of lung surgery Hx of CABG Family History Mother CAD (coronary artery disease) Father CAD (coronary artery disease) Social History Alcohol intake: never Lives independently: Yes Household members: none Marital status: Single service: Yes Current occupational status: retired History of recent travel: No Current gender identity: Male Dietary Habits: Current diet type/program: regular Caffeine: Yes Caffeine intake frequency: coffee Number of coffee servings: 2 Vitals/I&O/Wt Last Vital Signs Temp 98.8 F 06/27/21 11:53 Pulse 110 H 06/27/21 16:45 Resp 20 H 06/27/21 16:37 BP 122/78 06/27/21 11:53 Pulse Ox 96 06/27/21 16:37 06/27/21 06/27/21 06/27/21 06:59 14:59 22:59 Intake Total 50 / 50 Balance 50 / 50 Weight last 48 hrs Weight 144 lb 4.8 oz Weight 130 lb Physical Exam Narrative: EXAM NARRATIVE: GENERAL: Patient is alert, awake and oriented x3. He is tachypneic NECK: No jugular vein distension. HEENT: No cyanosis. No icterus. No pallor. HEART: Irregularly rate r S1 and S2. No murmur, rub or gallop. LUNGS: Reduced breath sounds with bilateral lower lobe inspiratory crackles ABDOMEN: Slightly firm, nontender and mild distended. No guarding, rebound or tenderness. CENTRAL NERVOUS SYSTEM: Grossly nonfocal. EXTREMITIES: Lower extremities with 1+ edema bilaterally. A&P Assessment and plan (1) Pulmonary HTN: It appeared to me that patient is in right-sided heart failure with severe pulmonary hypertension. Patient is at advanced age of pulmonary hypertension. There is very hard unfortunately to provide relief completely with reversible process. We recommend continuing off and on BiPAP oxygen through nasal cannula, to reduce congestion I will increase Lasix to 60 mg. I will add isosorbide mononitrate. We will try to ask for sildenafil which does not appear to be in the pharmacy for now. Status: Acute (2) Acute respiratory failure: Continue rest of the major for respiratory failure as per medicine Status: Acute Qualifiers: Respiratory failure complication: hypoxia Qualified Code(s): J96.01 - Acute respiratory failure with hypoxia (3) Congestive heart failure: Patient has a right-sided heart failure secondary to pulmonary hypertension continue IV diuresis with Lasix. We will continue to monitor blood pressure as patient is also preload dependent Status: Acute Qualifiers: Heart failure chronicity: acute Heart failure type: unspecified Qualified Code(s): I50.9 - Heart failure, unspecified (4) Chronic atrial fibrillation: Rate controlled for now continue current regimen. Continue anticoagulation Status: Acute Consult Attestations Medical Necessity Statement: Patient require continuation hospitalization for above defined care. 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
[2021-06-27] MEDS: FUROsemide 10 mg/mL SDV 10mL 60 MG IVP (18:13)
--- NOTE | 2021-06-27 18:20 | PC.NURSE ---
DR DUMAS AT BEDSIDE FOR ASSESSMENT VERBAL INSTRUCTIONS RECEIVED TO HOLD NEXT DOSE OF LASIX AND START PATIENT ON 15 MG OF IMDUR PO AT 2100
[2021-06-27] MEDS: atorvastatin 40 mg Tablet PO (19:56)
[2021-06-27] MEDS: isosorbide mononitrate ER 30 mg Tablet 15 MG PO (19:59)
[2021-06-27 20:33] LABS: Glucose Point of Care 178 mg/dL (70-110)
[2021-06-27] MEDS: diphenhydrAMINE 50 mg Capsule PO (21:29)
--- NOTE | 2021-06-27 21:42 | PC.NURSE ---
Dr. Barron notified of patient asking for something to help him sleep. Benadryl ordered. Currently unable to wean patient to baseline of 6 liters of oxygen.
[2021-06-28] VITALS (23 sets, daily range): BP systolic 98–111; BP diastolic 61–74; PULSE 87–120; RESP 14–41; TEMP 36–36.4; O2SAT 83–98
[2021-06-28] MEDS: temazepam 15 mg Capsule PO ×2 (01:25→21:12)
--- NOTE | 2021-06-28 01:30 | PC.NURSE ---
Patient is still c/o of not being able to sleep. He is still on the 15 liter nonrebreather with oxygen saturation of 96 percent. Crackles heard in lungs. He says I can't get going like this, I keep having to gasp for air and can't sleep. Dr. Barron notified. Bipap ordered. Dr. Barron notified that patient has small nose bleed at times. Patient currently has dried blood in right nostril. RT states that they are unable to place Bipap on patient due to this being a contraindication of Bipap. Dr. Barron notified of this. Restoril ordered.
[2021-06-28] MEDS: piperacillin-tazobactam 3.375 GM in sodium chloride 0.9% (plus) 50 ML IV ×3 (01:34→18:23)
--- NOTE | 2021-06-28 03:57 | PC.NURSE ---
Patient in distress with respiratory rate in the 40s. Dr. Barron notified. Ordered to place Bipap on patient and get ABG now and one in two hours. Bipap is currently on patient. Patient states that he feels better. Oxygen saturation 94 percent.
[2021-06-28] MEDS: FUROsemide 10 mg/mL SDV 10mL 60 MG IVP ×2 (04:05→18:25)
[2021-06-28 04:18] LABS: ABG PH Result 7.43 (7.35-7.45); Arterial Blood Gas Hematocrit 34.9 % (42-52); Base Excess ABG -1.5 mmol/L (-2.0-2.0); Blood Gas Sample Site Brachial, left; Blood Gas Sample Type Arterial; Carboxyhemoglobin 1.3 %THgb (0.4-20.1); HCO3 ABG 22.4 mmol/L (22-26); HGB O2 Sat 93.1 % (95-100); Ionized Calcium Level - ABG 1.2 mmol/L (1.1-1.4); Methemoglobin 0.8 % (0.4-1.5); PO2 ABG 70.2 mmHg (80.0-100.0); Total Hemoglobin 11.4 g/dL (14-18)
[2021-06-28 04:20] LABS: Alveolar-Arterial Oxygen Gradi 36.3 mmHg (5-10); Oxygen Device BIPAP
[2021-06-28] MEDS: ipratropium-albuterol 3 mL Neb INHALATION ×6 (04:30→23:55)
[2021-06-28 05:56] LABS: ABG PCO2 33.8 mmHg (35-45); ABG PH Result 7.46 (7.35-7.45); Alveolar-Arterial Oxygen Gradi 37.7 mmHg (5-10); Arterial Blood Gas Hematocrit 36.4 % (42-52); Base Excess ABG 0.8 mmol/L (-2.0-2.0); Blood Gas Sample Site Brachial, left; Blood Gas Sample Type Arterial; Carboxyhemoglobin 1.3 %THgb (0.4-20.1); HCO3 ABG 24.2 mmol/L (22-26); HGB O2 Sat 90.4 % (95-100); Ionized Calcium Level - ABG 1.2 mmol/L (1.1-1.4); Methemoglobin 0.8 % (0.4-1.5); Oxygen Device BIPAP; Oxygen Saturation ABG 92.4; PO2 ABG 60.1 mmHg (80.0-100.0); Potassium Level - ABG 2.9 mmol/L (3.5-5.0); Total Hemoglobin 11.9 g/dL (14-18)
[2021-06-28 06:08] LABS: Glucose Point of Care 101 mg/dL (70-110)
[2021-06-28 07:15] LABS: Basophils % 0.2 %; Eosinophils # 0.1 10^3/uL (0.0-0.8); Eosinophils % 0.5 %; Hematocrit 36.3 % (42.0-52.0); Hemoglobin 11.4 g/dL (11.7-16.6); Lymphocytes # 1.2 10^3/uL (0.8-4.8); Lymphocytes % 9.3 %; Mean Corpuscular HGB Conc 31.4 g/dL (30.0-36.0); Mean Corpuscular Hemoglobin 28.4 pg (28.0-34.0); Mean Corpuscular Volume 90.5 fl (80-94); Mean Platelet Volume 13.2 fL (7.4-10.4); Monocytes % 7.3 %; Neutrophils # 10.86 10^3/uL (1.8-7.7); Neutrophils % 82.3 %; Nucleated Red Blood Cells % 0 %; Platelet Count 189 10^3/cmm (130-400); Red Blood Count 4.01 10^6/uL (4.1-5.3); Red Cell Distribution Width 19.2 % (12.1-15.1); White Blood Count 13.2 10^3/uL (4.0-10.0)
[2021-06-28 07:41] LABS: Alanine Aminotransferase 10 U/L (0-41); Albumin Level 3.5 g/dL (3.5-5.2); Alkaline Phosphatase 88 IU/L (40-130); Anion Gap 15.2 (5-19); Aspartate Amino Transferase 21 U/L (0-40); Blood Urea Nitrogen 23 mg/dL (8-23); Calcium 8.6 mg/dL (8.5-10.5); Carbon Dioxide 24 mmol/L (22-29); Chloride 100 mmol/L (98-107); Creatinine Clr Calc Pharmacy 44.5365; Globulin 2.8 g/dL (1.3-4.6); Glucose 97 mg/dL (65-115); Osmolality Calculated 286 mOsm/kg (285-295); Potassium 3.2 mmol/L (3.5-5.1); Sodium 136 mmol/L (136-145); Total Bilirubin 1.1 mg/dL (0.15-1.2); Total Protein 6.3 g/dL (6.6-8.7)
--- NOTE | 2021-06-28 08:03 | PC.NURSE ---
Dr handley notified of potassium levels and events overnight instructions received to give lasix 20mg IVP now and 40 MeQ po potassium now and repeat potassium dose in 4 hours
--- NOTE | 2021-06-28 08:15 | PC.NURSE ---
verbal instructions received at bedside from Dr garcia to place landni catheter for Accurate I&O
[2021-06-28] MEDS: potassium chloride ER 20 mEq Tablet 40 MEQ PO ×2 (08:52→12:50)
[2021-06-28] MEDS: metoprolol tartrate 25 mg Tablet PO ×2 (08:52→21:12)
[2021-06-28] MEDS: rivaroxaban 10 mg Tablet 20 MG PO (08:52)
[2021-06-28] MEDS: aspirin 81 mg EC Tablet PO (08:52)
[2021-06-28] MEDS: NIFEdipine ER (24 hr) 30 mg Tablet PO (08:52)
[2021-06-28] MEDS: FUROsemide 10 mg/mL SDV 2mL 20 MG IVP (08:53)
[2021-06-28] MEDS: isosorbide mononitrate ER 30 mg Tablet 15 MG PO ×2 (08:55→21:12)
--- NOTE | 2021-06-28 12:52 | PM.PN ---
Subjective Subjective: Interval history: Patient was seen and examined this morning,last night was rough on him, he was extremely short of breath and had to be placed on BIPAP. after which he Medications: Reviewed: Yes Vitals/I&O/Wt Last Vital Signs Temp 97.6 F 06/28/21 07:27 Pulse 94 06/28/21 11:45 Resp 16 06/28/21 11:44 BP 111/73 06/28/21 07:27 Pulse Ox 96 06/28/21 11:45 06/27/21 06/28/21 06/28/21 22:59 06:59 14:59 Intake Total 410 / 460 250 / 710 Output Total 800 / 800 675 / 1475 Balance -390 / -340 -425 / -765 Weight last 48 hrs Weight 65.453 kg Weight 58.967 kg Physical Exam Const: COMMON NORMALS: patient oriented x3 HENMT: COMMON NORMALS: normocephalic and atraumatic HEAD & SCALP: normocephalic and atraumatic Resp: OTHER: Diminished air entry B/L with B/L Basal crackles Cardio: COMMON NORMALS: regular rate, regular rhythm, S1 normal heart sound present, S2 normal heart sound present, No gallops present (Cardio), No murmurs present (Cardio), No rub (Cardio) and Peripheral pulses 2+ throughout RATE: regular rate RHYTHM: regular rhythm HEART SOUNDS: S1 normal heart sound present and S2 normal heart sound present PERIPHERAL PULSES: Peripheral pulses 2+ throughout GI: COMMON NORMALS: Normal to inspection, nondistended, normoactive bowel sounds present, Soft to palpation, non-tender, No hepatosplenomegaly present and no masses AUSCULTATION: Yes normoactive bowel sounds PALPATION: Yes Soft to palpation and Yes No hepatosplenomegaly present RECTAL EXAM: Yes deferred Extremity: OTHER: 2 + b/l pitting edema in both L/E Neuro: COMMON NORMALS: patient oriented x3 Urinary Catheter Management^: Alvarado: Cath Placed During This Visit: yes Urinary Catheter Date of Insertion: 06/28/21 Urinary Catheter Time of Insertion: 08:25 Data : 06/28/21 06:58 06/28/21 06:58 Micro: Microbiology 06/27/21 21:30 MRSA Culture - Final Nose A&P Assessment and plan (1) Acute respiratory failure: Ac hypoxic r/f 2/2 Decompensated HFpEF as well as RHF and Severe Pulmonary HTN Lasix 60 mg IV twice daily Intake output charting Daily weight k>4, mg >2 Nifedipine 30 mg p.o. daily Metoprolol tartrate 25 mg p.o. BID. Status: Acute (2) Heart failure: Plan as 1 Status: Acute (3) Pneumonia: Possible although unlikely pneumonia right lung. Right pleural effusion is from heart failure. Procalcitonin negative. In this current. With tenuous respiratory status will initiate Zosyn, check sputum culture and MRSA PCR. The patient clinically improved and still no evidence of significant development of infection could DC antibiotic early. Status: Acute (4) Chronic atrial fibrillation: On metoprolol, calcium channel golden, Xarelto. Status: Acute Additional A&P Information History of diabetes. Continue sliding scale insulin. Coronary artery disease. Continue beta-golden, statin Multiple other medical problems as outlined in past medical history Full code He is on Xarelto which will suffice for DVT prophylaxis Attestations Medical Necessity Statement*: Patient needs to be in hospital for the management of respiratory failure. 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
--- NOTE | 2021-06-28 14:49 | P.PN_ITS ---
Subjective Subjective: Interval history: Patient had episode of shortness of breath this morning extra 20 mg of Lasix was given BiPAP was used he is feeling little better now. Medications: Reviewed: Yes Vitals/I&O/Wt Last Vital Signs Temp 97.6 F 06/28/21 07:27 Pulse 94 06/28/21 11:45 Resp 16 06/28/21 11:44 BP 111/73 06/28/21 07:27 Pulse Ox 96 06/28/21 11:45 06/27/21 06/28/21 06/28/21 22:59 06:59 14:59 Intake Total 410 / 460 250 / 710 50 / 50 Output Total 800 / 800 675 / 1475 Balance -390 / -340 -425 / -765 50 / 50 Weight last 48 hrs Weight 144 lb 4.8 oz Weight 130 lb Physical Exam Narrative: EXAM NARRATIVE: GENERAL: Patient is alert, awake and oriented x3. NECK: No jugular vein distension. HEENT: No cyanosis. No icterus. No pallor. HEART: Irregularly rate S1 and S2. No murmur, rub or gallop. LUNGS: Reduced breath sounds with bilateral lower lobe inspiratory crackles ABDOMEN: Slightly firm, nontender and mild distended. No guarding, rebound or tenderness. CENTRAL NERVOUS SYSTEM: Grossly nonfocal. EXTREMITIES: Lower extremities with 1+ edema bilaterally. Urinary Catheter Management^: Alvarado: Cath Placed During This Visit: yes Urinary Catheter Date of Insertion: 06/28/21 Urinary Catheter Time of Insertion: 08:25 Data : 06/28/21 06:58 06/28/21 06:58 Micro: Microbiology 06/27/21 21:30 MRSA Culture - Final Nose A&P Assessment and plan (1) Pulmonary HTN: It appeared to me that patient is in right-sided heart failure with severe pulmonary hypertension. Patient is at advanced age of pulmonary hypertension. There is very hard unfortunately to provide relief completely with reversible process. We recommend continuing off and on BiPAP oxygen through nasal cannula, to reduce congestion I will increase Lasix to 60 mg. I will add isosorbide mononitrate. We will try to ask for sildenafil which does not appear to be in the pharmacy for now. At this point we would like to add sildenafil it is not available in our formulary may will last as an outpatient. Patient require to follow-up with dedicated pulmonary hypertension clinic possibly at [facility] where he will may need right heart cath to study reversibility based upon that further plan will be advised. Status: Acute (2) Acute respiratory failure: As per medicine Status: Acute Qualifiers: Respiratory failure complication: hypoxia Qualified Code(s): J96.01 - Acute respiratory failure with hypoxia (3) Congestive heart failure: Patient was given extra Lasix at this point appeared to be compensated Status: Acute Qualifiers: Heart failure chronicity: acute Heart failure type: unspecified Qualified Code(s): I50.9 - Heart failure, unspecified (4) Chronic atrial fibrillation: Rate controlled. Continue current regimen Status: Acute Attestations Medical Necessity Statement*: Patient require continuation hospitalization for above defined care. 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
[2021-06-28 17:40] LABS: Glucose Point of Care 144 mg/dL (70-110)
--- NOTE | 2021-06-28 19:03 | PC.NURSE ---
Shift Note Frequent safety and comfort rounds continue. Orders and/or nursing care completed as indicated. Patient monitored for response to intervention and treatment(s). Education provided includes CAUTI and purpose of landin . Patient and/or member services representative verbalized understanding. Will continue to monitor.
[2021-06-28 20:05] LABS: Glucose Point of Care 132 mg/dL (70-110)
[2021-06-28] MEDS: atorvastatin 40 mg Tablet PO (21:12)
[2021-06-29] VITALS (87 sets, daily range): BP systolic 69–128; BP diastolic 51–78; PULSE 68–106; RESP 0–38; TEMP 36.5–36.6; O2SAT 68–97
[2021-06-29] MEDS: piperacillin-tazobactam 3.375 GM in sodium chloride 0.9% (plus) 50 ML IV ×3 (00:32→19:50)
[2021-06-29] MEDS: ipratropium-albuterol 3 mL Neb INHALATION ×4 (03:13→20:15)
[2021-06-29 04:20] LABS: Basophils # 0.1 10^3/uL (0.0-0.1); Basophils % 0.5 %; Eosinophils # 0.2 10^3/uL (0.0-0.8); Eosinophils % 2.2 %; Hematocrit 36.2 % (42.0-52.0); Hemoglobin 11.2 g/dL (11.7-16.6); Lymphocytes # 1.5 10^3/uL (0.8-4.8); Lymphocytes % 14.2 %; Mean Corpuscular HGB Conc 30.9 g/dL (30.0-36.0); Mean Corpuscular Hemoglobin 28.2 pg (28.0-34.0); Mean Corpuscular Volume 91.2 fl (80-94); Mean Platelet Volume 12.9 fL (7.4-10.4); Monocytes # 1.1 10^3/uL (0.2-0.9); Monocytes % 10.2 %; Neutrophils # 7.59 10^3/uL (1.8-7.7); Neutrophils % 72.6 %; Nucleated Red Blood Cells % 0 %; Platelet Count 162 10^3/cmm (130-400); Red Blood Count 3.97 10^6/uL (4.1-5.3); Red Cell Distribution Width 19.1 % (12.1-15.1); White Blood Count 10.5 10^3/uL (4.0-10.0)
[2021-06-29] MEDS: FUROsemide 10 mg/mL SDV 10mL 60 MG IVP (04:32)
[2021-06-29 04:52] LABS: Alanine Aminotransferase 9 U/L (0-41); Albumin Level 3.1 g/dL (3.5-5.2); Alkaline Phosphatase 78 IU/L (40-130); Anion Gap 14.3 (5-19); Aspartate Amino Transferase 19 U/L (0-40); Blood Urea Nitrogen 23 mg/dL (8-23); Calcium 8.5 mg/dL (8.5-10.5); Carbon Dioxide 26 mmol/L (22-29); Chloride 101 mmol/L (98-107); Creatinine Clr Calc Pharmacy 44.5365; Globulin 2.9 g/dL (1.3-4.6); Glucose 90 mg/dL (65-115); Magnesium 2.1 mg/dL (1.7-2.3); Osmolality Calculated 289 mOsm/kg (285-295); Potassium 3.3 mmol/L (3.5-5.1); Sodium 138 mmol/L (136-145)
[2021-06-29 06:37] LABS: Glucose Point of Care 91 mg/dL (70-110)
--- NOTE | 2021-06-29 11:14 | PC.NURSE ---
patient took off bipap mask by himself this am this nurse replaced mask patient recovered. however, patient wanted to take mask off to eat breakfast, mask removed and placed on high flow NC for breakfast patient sating on the upper 70's RT at bedside to replace Bipap patient recovered patient let to rest for some time patient asked to get up to chair upon sitting patient up on side of bed patient went limp patient continued to be alert and answered questions appropriately help called to bedside patient repositioned in bed recovering Dr garcia notified of events instructions to have RT place Heated HIgh Flow upon vital signs check patient Bp was found low with map of 57 Dr garcia notified and came to bedside verbal instructions to start patient on levofed drip Dr garcia notifeid of medication rounds late due to events okayed by provider to hold medications levofed started patient remains alert oriented v/s stabilizing awaiting ICU placement
[2021-06-29 11:24] LABS: Glucose Point of Care 121 mg/dL (70-110)
--- NOTE | 2021-06-29 12:15 | PC.NURSE ---
Addendum entered by Madelyn Esquivel RN 06/29/21 19:07: Pt arrives to ICU from [facility]. Pt alert and oriented. on heated high flow. He does get short of breath with exertion and talking. Levophed gtt at 2mcg/min. Original Note: Xaralto, aspirin and potassium PO admin now. Zosyn administered now. Meds were held this am due to pt struggling with breathing.
[2021-06-29] MEDS: rivaroxaban 10 mg Tablet 20 MG PO (12:43)
[2021-06-29] MEDS: potassium chloride ER 20 mEq Tablet 40 MEQ PO (12:44)
[2021-06-29] MEDS: aspirin 81 mg EC Tablet PO (12:44)
--- NOTE | 2021-06-29 15:05 | P.PN_ITS ---
Subjective Subjective: Interval history: Patient dropped his blood pressure and later desaturated however after adjusting BiPAP his saturation came back normal. He was moved to the unit for Levophed Medications: Reviewed: Yes Vitals/I&O/Wt Last Vital Signs Temp 97.7 F 06/29/21 11:45 Pulse 78 06/29/21 11:45 Resp 26 H 06/29/21 11:45 BP 96/59 06/29/21 11:45 Pulse Ox 93 06/29/21 11:45 06/29/21 06/29/21 06/29/21 06:59 14:59 22:59 Intake Total 350 / 1310 24.384 / 24.384 Output Total 725 / 2725 Balance -375 / -1415 24.384 / 24.384 Physical Exam Narrative: EXAM NARRATIVE: GENERAL: Patient is alert, awake and oriented x3. NECK: No jugular vein distension. HEENT: No cyanosis. No icterus. No pallor. HEART: Irregularly rate S1 and S2. No murmur, rub or gallop. LUNGS: Reduced breath sounds with bilateral lower lobe inspiratory crackles ABDOMEN: Slightly firm, nontender and mild distended. No guarding, rebound or tenderness. CENTRAL NERVOUS SYSTEM: Grossly nonfocal. EXTREMITIES: Lower extremities with trace edema bilaterally. Urinary Catheter Management^: Alvarado: Cath Placed During This Visit: yes Reason for Continuing Indwelling Catheter: Accurate Measurement of Urinary O utput in Critically Ill Patients Urinary Catheter Date of Insertion: 06/28/21 Urinary Catheter Time of Insertion: 08:25 Data : 06/29/21 03:30 06/29/21 03:30 Micro: Microbiology 06/27/21 21:30 MRSA Culture - Final Nose A&P Assessment and plan (1) Pulmonary HTN: It appeared to me that patient is in right-sided heart failure with severe pulmonary hypertension. Patient is at advanced age of pulmonary hypertension. There is very hard unfortunately to provide relief completely with reversible process. We recommend continuing off and on BiPAP oxygen through nasal cannula, to reduce congestion I will increase Lasix to 60 mg. I will add isosorbide mononitrate. We will try to ask for sildenafil which does not appear to be in the pharmacy for now. At this point we would like to add sildenafil it is not available in our formulary may will last as an outpatient. Patient require to follow-up with dedicated pulmonary hypertension clinic possibly at [facility] where he trae l may need right heart cath to study reversibility based upon that further plan will be advised. As defined above patient has severe pulmonary arterial disease, due to high right-sided pressures and because of fact diuresis and vasodilator it is very hard to maintain blood pressure at this point we recommend stopping Lasix agree with Levophed for now. May add sildenafil after deseeding isosorbide if sildenafil is available. Continue BiPAP oxygen. Consider following up with dedicated pulmonary hypertension clinic at [facility] Status: Acute (2) Acute respiratory failure: As per medicine Status: Acute Qualifiers: Respiratory failure complication: hypoxia Qualified Code(s): J96.01 - Acute respiratory failure with hypoxia (3) Congestive heart failure: Patient is compensated hold diuretics for now Status: Acute Qualifiers: Heart failure chronicity: acute Heart failure type: unspecified Qualified Code(s): I50.9 - Heart failure, unspecified (4) Chronic atrial fibrillation: Rate controlled. 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
[2021-06-29 17:38] LABS: Glucose Point of Care 160 mg/dL (70-110)
--- NOTE | 2021-06-29 18:00 | PC.NURSE ---
Pt had heated high flow cannula on his chin, his sats dropped to 72%, replaced in nostrils, slowly recovery. NOw at 86% Will continue to monitor.
--- NOTE | 2021-06-29 18:59 | PM.PN ---
Subjective Subjective: Interval history: patient was seen and examined this morning, had an episode of dizziness as well as was hypotensive and has significant desaturation with minimal exertion. Medications: Reviewed: Yes Vitals/I&O/Wt Last Vital Signs Temp 97.7 F 06/29/21 11:45 Pulse 84 06/29/21 16:01 Resp 22 H 06/29/21 15:53 BP 96/59 06/29/21 11:45 Pulse Ox 86 L 06/29/21 15:53 06/29/21 06/29/21 06/29/21 06:59 14:59 22:59 Intake Total 350 / 1310 24.384 / 24.384 115.786 / 140.170 Output Total 725 / 2725 Balance -375 / -1415 24.384 / 24.384 115.786 / 140.170 Physical Exam Const: COMMON NORMALS: patient oriented x3 HENMT: COMMON NORMALS: normocephalic and atraumatic HEAD & SCALP: normocephalic and atraumatic Resp: OTHER: Diminished air entry B/L with B/L Basal crackles Cardio: COMMON NORMALS: regular rate, regular rhythm, S1 normal heart sound present, S2 normal heart sound present, No gallops present (Cardio), No murmurs present (Cardio), No rub (Cardio) and Peripheral pulses 2+ throughout RATE: regular rate RHYTHM: regular rhythm HEART SOUNDS: S1 normal heart sound present and S2 normal heart sound present PERIPHERAL PULSES: Peripheral pulses 2+ throughout GI: COMMON NORMALS: Normal to inspection, nondistended, normoactive bowel sounds present, Soft to palpation, non-tender, No hepatosplenomegaly present and no masses AUSCULTATION: Yes normoactive bowel sounds PALPATION: Yes Soft to palpation and Yes No hepatosplenomegaly present RECTAL EXAM: Yes deferred Extremity: OTHER: 2 + b/l pitting edema in both L/E Neuro: COMMON NORMALS: patient oriented x3 Urinary Catheter Management^: Alvarado: Cath Placed During This Visit: yes Reason for Continuing Indwelling Catheter: Accurate Measurement of Urinary Output in Critically Ill Patients Urinary Catheter Date of Insertion: 06/28/21 Urinary Catheter Time of Insertion: 08:25 Data : 06/29/21 03:30 06/29/21 03:30 A&P Assessment and plan (1) Acute respiratory failure: Ac hypoxic r/f 2/2 Decompensated HFpEF as well as RHF and Severe Pulmonary HTN Initially on Lasix 60 mg IV twice daily has been decreased to lasix 60 I.V Daily Intake output charting Daily weight k>4, mg >2 Nifedipine 30 mg p.o. daily ( on hold ) Metoprolol tartrate 25 mg p.o. BID. ( on hold ) Currently on levophed HHFONC/BIPAP Status: Acute Qualifiers: Respiratory failure complication: hypoxia Qualified Code(s): J96.01 - Acute respiratory failure with hypoxia (2) Heart failure: Plan as 1 Status: Acute (3) Pneumonia: Possible although unlikely pneumonia right lung. Right pleural effusion is from heart failure. Procalcitonin negative. In this current. With tenuous respiratory status will initiate Zosyn, check sputum culture and MRSA PCR. The patient clinically improved and still no evidence of significant development of infection could DC antibiotic early. Status: Acute (4) Chronic atrial fibrillation: On metoprolol, Xarelto. Status: Acute Additional A&P Information History of diabetes. Continue sliding scale insulin. Coronary artery disease. Continue beta-golden, statin Multiple other medical problems as outlined in past medical history Full code He is on Xarelto which will suffice for DVT prophylaxis Attestations Medical Necessity Statement*: Patient needs to be in hospital for the management of heart failure. Coding Level of Care Code Acute Meter And Regulator Shop Supervisor for Dylan Villela Diagnoses Acute respiratory failure J96.01 Respiratory failure complication: hypoxia Heart failure I50.9 Pneumonia J18.9 Chronic atrial fibrillation I48.20
--- NOTE | 2021-06-29 19:08 | PC.NURSE ---
Shift Note: Pt has rested in bed. Levophed gtt adjusted per B/P,now back down to 2mcg/min. Lung sounds are very diminished. Heated high flow at 60 liters and 80%. Pt only made 250ml of urine while in ICU. His 2 sisters visited shortly after his arrival to ICU. Pt has a good appetite. Frequent safety and comfort rounds continue. Orders and/or nursing care completed as indicated. Patient monitored for response to intervention and treatment(s). Education provided includes Levophed, Zosyn, Xarolto. Patient and/or termite control representative verbalizes understanding Will continue to monitor.
[2021-06-29] MEDS: atorvastatin 40 mg Tablet PO (19:51)
[2021-06-29 21:03] LABS: Glucose Point of Care 210 mg/dL (70-110)
[2021-06-29] MEDS: temazepam 15 mg Capsule PO (21:44)
[2021-06-29] MEDS: diphenhydrAMINE 50 mg Capsule PO (21:44)
[2021-06-30] VITALS (51 sets, daily range): BP systolic 97–135; BP diastolic 59–94; PULSE 78–105; RESP 14–44; TEMP 35.6–36.9; O2SAT 74–98
[2021-06-30] MEDS: LORazepam 2 mg/mL INJ 1 mL IVP ×2 (00:33→21:17)
[2021-06-30] MEDS: ipratropium-albuterol 3 mL Neb INHALATION ×6 (03:06→23:38)
[2021-06-30] MEDS: piperacillin-tazobactam 3.375 GM in sodium chloride 0.9% (plus) 50 ML IV ×3 (03:38→21:15)
--- NOTE | 2021-06-30 05:55 | PC.NURSE ---
Shift Summary; Pt has had eventful night. Pt has removed HHFNC from nose multiple times, and immediately will desat to 70-75%. RN to bedside with each event to replace O2 device. Education given on importance of O2 delivery. Pt verbalizes understandment, but continues to remove O2 from nostrils. Pt is also found to be picking at inside of nostrils, and has been found to have moderate nose bleeds in return. Pt cleaned multiple times of blood. New order received for Lanolin to be applied to inside of nostrils as indicated and appropriate. Pt requested to get out of bed. RN to bedside with walker device for added safety. Pt almost immediately desats to mid 70% range. Pt placed back in bed, and education given on need to remain in bed at this time for recovery in O2 standpoint. Pt had multiple episodes of anxiety and requested sleep aid. RN gave PRN medications for sleep aid as ordered, and when indicated.
[2021-06-30 06:58] LABS: Anion Gap 13.8 (5-19); Blood Urea Nitrogen 21 mg/dL (8-23); Calcium 8.4 mg/dL (8.5-10.5); Carbon Dioxide 23 mmol/L (22-29); Chloride 102 mmol/L (98-107); Glucose 176 mg/dL (65-115); Osmolality Calculated 287 mOsm/kg (285-295); Potassium 3.8 mmol/L (3.5-5.1); Sodium 135 mmol/L (136-145)
[2021-06-30 07:41] LABS: Glucose Point of Care 179 mg/dL (70-110)
[2021-06-30] MEDS: metoprolol tartrate 25 mg Tablet PO ×2 (08:02→21:14)
[2021-06-30] MEDS: aspirin 81 mg EC Tablet PO (08:12)
[2021-06-30] MEDS: potassium chloride ER 20 mEq Tablet 40 MEQ PO (08:12)
[2021-06-30] MEDS: rivaroxaban 10 mg Tablet 20 MG PO (08:25)
[2021-06-30 09:26] LABS: Magnesium 2.3 mg/dL (1.7-2.3)
--- NOTE | 2021-06-30 09:58 | PC.NURSE ---
Patient's sister came to visit the patient. Gave an update on patient's nose bleeding, oxygen status, discontinuing of blood pressure medication, oxygen saturation drops when patient moves nasal cannula, activity goals, orientation, and breakfast. Informed patient's sister of visiting hours and one person policy. Patient's sister said that she will come back when visiting hours start.
--- NOTE | 2021-06-30 10:01 | PC.CHAP ---
Pastoral Care Encounter/Spiritual Assessment Type of Contact [] Declined perianesthesia manager visit [] Patient/Family/Request visit [] Outpatient visit [] Follow-up visit [] Physician referral [] Code/Alert [x] Routine visit [] Staff referral [] Actively dying [] Patient sleeping [] Family support [] [] Out of room [] Palliative care [] [x] Receiving care in room [] Pre-surgical visit [] Trauma [] Long length of stay [x] ICU visit [] Other: Relational/Emotional Strength [] Patient feels connected with others/family/visitors/staff [] Distress [] Loneliness/isolation [] Abandonment Spirituality of Patient [] Person of So [] Attends Mandaeism of their So [] Believes in Prayer [] Reads Bible or Jain materials [] There are Spiritual issues to be addressed Traffic Technician Interventions [x] Prayer [] Active listening [] Non-anxious presence [] Spiritual/emotional support [] Crisis/trauma care [] Spiritual counseling [] Bereavement support [] Provided bereavement packet [] Provided Bible/devotional materials [] Provided toy/stuffed animal, coloring book to patient or family member [] Provided Communion [] Anointing/[place] [] Salvation [x] Completed spiritual assessment [] Other: Impact on Illness or Injury [] Angry [] Fearful [] Anxious [] Often cries [] Exhaustion [] Unable to work [] Unable to attend jewish [] Unable to walk/stand [] Unable to read [] Unable to drive [] Unable to eat/drink [] Unable to sleep [] Unable to be with family [] Patient intubated [] Other: Summary Time spent with patient
[2021-06-30] MEDS: FUROsemide 10 mg/mL SDV 10mL 60 MG IVP (11:02)
--- NOTE | 2021-06-30 11:11 | PC.SOCIAL ---
IMM updated with patient. Copy pg 2 provided. Initialled, dated, timed, and placed in chart.
[2021-06-30] MEDS: lanolin oint 7 gm 1 APPLIC TOPICAL (11:14)
[2021-06-30 12:08] LABS: Glucose Point of Care 199 mg/dL (70-110)
--- NOTE | 2021-06-30 14:50 | PC.NURSE ---
Patient up to chair. Oxygen went to low 80s when patient was moving from bed to chair. Patient from chair to commode. Patient able stay balanced with one person assist using a walker.
--- NOTE | 2021-06-30 16:55 | P.PN_ITS ---
Subjective Subjective: Interval history: Patient was seen this morning, he is enjoying breakfast, he tells me he feels a lot better, he tells me that he lives by himself and there [place], his sisters are nearby, he tells me that recently discharged from the hospital and he was on 6 L, currently on 35 L 65% FiO2, Medications: Reviewed: Yes Vitals/I&O/Wt Last Vital Signs Temp 98.1 F 06/30/21 16:30 Pulse 88 06/30/21 16:30 Resp 38 H 06/30/21 16:30 BP 114/78 06/30/21 16:30 Pulse Ox 89 L 06/30/21 16:30 06/30/21 06/30/21 06/30/21 06:59 14:59 22:59 Intake Total 258.275 / 1110.637 828 / 828 50 / 878 Output Total 475 / 1625 Balance -216.725 / -514.363 828 / 828 50 / 878 Physical Exam Const: COMMON NORMALS: no acute distress GENERAL APPEARANCE: frail appearing ORIENTATION/CONSCIOUSNESS: Yes awake, Yes oriented to person, Yes oriented to place and Yes oriented to time Resp: COMMON NORMALS: normal respiratory effort, No retractions, No use of accessory muscles and clear to auscultation bilaterally AUSCULTATION: clear to auscultation bilaterally Cardio: COMMON NORMALS: regular rate, regular rhythm, S1 normal heart sound present and S2 normal heart sound present RATE: regular rate RHYTHM: regular rhythm HEART SOUNDS: S1 normal heart sound present and S2 normal heart sound present GI: COMMON NORMALS: Normal to inspection, nondistended, normoactive bowel sounds present Extremity: COMMON NORMALS: no pedal edema Neuro: SENSORIUM/ORIENTATION: Yes oriented to person, Yes oriented to place and Yes oriented to time Urinary Catheter Management^: Alvarado: Cath Placed During This Visit: yes Reason for Continuing Indwelling Catheter: Accurate Measurement of Urinary Output in Critically Ill Patients Urinary Catheter Date of Insertion: 06/28/21 Urinary Catheter Time of Insertion: 08:25 Data : 06/29/21 03:30 06/30/21 06:13 Micro: Microbiology 06/30/21 09:23 Gram Stain - Final Sputum - Expectorated Sputum A&P Assessment and plan (1) Acute respiratory failure: Acute hypoxic respiratory failure secondary to biventricular heart failure, decompensated HFpEF as well as RHF and Severe Pulmonary HTN Cardiac echocardiogram on February 2021 1-Normal left ventricular cavity size. Normal left ventricular systolic function. Left ventricular ejection fraction is estimated at 55 %. Flattened septum in diastole consistent with right ventricle volume overload. 2-Severely increased right ventricular size. Moderately decreased right ventricular systolic function. Moderate pulmonary hypertension, RVSP 37.6 mmHg. 3-Moderately increased right atrial size. 4-Severely thickened mitral valve. Severe mitral annular calcification. No mitral valve stenosis. No mitral valve regurgitation. 5-Severe aortic valve calcification. Mild aortic valve stenosis, mean gradient 4.5 mmHg, SRIKANTH 2.1 cm squared. No aortic valve regurgitation. 6-Severe tricuspid valve regurgitatio. 7-There is no pericardial effusion. 8-When compared to the prior echocardiogram dated April 22, 2020 right ventricle is severely enlarged with moderate to severely depressed function. Continue Lasix 60 mg IV push daily, creatinine 1.1, potassium 3.8, -1.6 L Intake output charting Daily weight k>4, mg >2 Nifedipine 30 mg p.o. daily ( on hold ) Metoprolol tartrate 25 mg p.o. BID. ( on hold ) Currently off Levophed Currently on high flow nasal cannula, wean as tolerated, BiPAP as needed Will likely require select placement Status: Acute Qualifiers: Respiratory failure complication: hypoxia Qualified Code(s): J96.01 - Acute respiratory failure with hypoxia (2) Heart failure: Plan as above Status: Acute (3) Pneumonia: Possible although unlikely pneumonia right lung. Right pleural effusion is from heart failure. Procalcitonin negative. Given his respiratory status currently on Zosyn, check sputum culture and MRSA PCR. If he remains afebrile, cultures negative, will de-escalate antibiotic therapy Status: Acute (4) Chronic atrial fibrillation: On metoprolol, Xarelto. Status: Acute Additional A&P Information History of diabetes. Continue sliding scale insulin. Coronary artery disease. Continue beta-golden, statin Multiple other medical problems as outlined in past medical history History of pleural classifications, status post partial resection of left lower lobe Atrial fibrillation on Xarelto Full code He is on Xarelto which will suffice for DVT prophylaxis Attestations Medical Necessity Statement*: Patient requires hospitalization for acute hypoxic respiratory failure secondary to biventricular heart failure, CHF, diastolic CHF, pulmonary pretension Coding Level of Care Code Acute Burnisher And Bumper for g Fwd Diagnoses Acute respiratory failure J96.01 Respiratory failure complication: hypoxia Heart failure I50.9 Pneumonia J18.9 Chronic atrial fibrillation I48.20
--- NOTE | 2021-06-30 17:35 | PC.NURSE ---
Tried to call Amanda to update on patient, but the number was not in service. Then called Laisha to update on patient. Updated that patient got up to chair and went to the commode. Updated that the flow rate of oxygen was decreased. Updated that the nose bleed has stopped. Updated that the patient was eating dinner.
[2021-06-30 17:47] LABS: Glucose Point of Care 130 mg/dL (70-110)
--- NOTE | 2021-06-30 18:40 | PC.NURSE ---
Shift Note Frequent safety and comfort rounds continue. Orders and/or nursing care completed as indicated. Patient monitored for response to intervention and treatment(s). Education provided includes activity, treatment plan, medications, and oxygen use. Patient verbalized understanding. Got patient up to chair twice. Patient unsteady on feet when standing. Patient got back to bed around 1840 after being in chair for around an hour. Patient oxygen level fell to the 70s. After telling the patient to breath through the nasal cannula the oxygen level increased to 94. Patient alert and oriented throughout shift. Patient blew nose periodically throughout shift. When blowing nose the patient does not always place the nasal back in place and oxygen levels go down.
--- NOTE | 2021-06-30 20:47 | P.PN_ITS ---
Subjective Subjective: Interval history: Feeling better today however still on high flow oxygen. Medications: Reviewed: Yes Vitals/I&O/Wt Last Vital Signs Temp 98.1 F 06/30/21 16:30 Pulse 86 06/30/21 20:29 Resp 22 H 06/30/21 20:29 BP 114/78 06/30/21 16:30 Pulse Ox 90 06/30/21 20:29 06/30/21 06/30/21 06/30/21 06:59 14:59 22:59 Intake Total 258.275 / 1110.637 828 / 828 1004 / 1832 Output Total 475 / 1625 525 / 525 Balance -216.725 / -514.363 828 / 828 479 / 1307 Physical Exam Narrative: EXAM NARRATIVE: GENERAL: Patient is alert, awake and oriented x3. NECK: No jugular vein distension. HEENT: No cyanosis. No icterus. No pallor. HEART: Irregularly rate S1 and S2. No murmur, rub or gallop. LUNGS: Reduced breath sounds with bilateral lower lobe inspiratory crackles ABDOMEN: Slightly firm, nontender and mild distended. No guarding, rebound or tenderness. CENTRAL NERVOUS SYSTEM: Grossly nonfocal. EXTREMITIES: Lower extremities with trace edema bilaterally. Urinary Catheter Management^: Alvarado: Cath Placed During This Visit: yes Reason for Continuing Indwelling Catheter: Accurate Measurement of Urinary Output in Critically Ill Patients Urinary Catheter Date of Insertion: 06/28/21 Urinary Catheter Time of Insertion: 08:25 Data : 06/29/21 03:30 06/30/21 06:13 Micro: Microbiology 06/30/21 09:23 Gram Stain - Final Sputum - Expectorated Sputum A&P Assessment and plan (1) Pulmonary HTN: It appeared to me that patient is in right-sided heart failure with severe pulmonary hypertension. Patient is at advanced age of pulmonary hypertension. There is very hard unfortunately to provide relief completely with reversible process. We recommend continuing off and on BiPAP oxygen through nasal cannula, to reduce congestion I will increase Lasix to 60 mg. I will add isosorbide mononitrate. We will try to ask for sildenafil which does not appear to be in the pharmacy for now. At this point we would like to add sildenafil it is not available in our form ulary may will last as an outpatient. Patient require to follow-up with dedicated pulmonary hypertension clinic possibly at [facility] where he will may need right heart cath to study reversibility based upon that further plan will be advised. As defined above patient has severe pulmonary arterial disease, due to high right-sided pressures and because of fact diuresis and vasodilator it is very hard to maintain blood pressure at this point we recommend stopping Lasix agree with Levophed for now. May add sildenafil after deseeding isosorbide if sildenafil is available. Continue BiPAP oxygen. Consider following up with dedicated pulmonary hypertension clinic at [facility] Continue as per plan. Patient is slightly steady now off pressors Status: Acute (2) Acute respiratory failure: As per medicine Status: Acute Qualifiers: Respiratory failure complication: hypoxia Qualified Code(s): J96.01 - Acute respiratory failure with hypoxia (3) Congestive heart failure: Patient is compensated continue holding diuretics for now Status: Acute Qualifiers: Heart failure chronicity: acute Heart failure type: unspecified Qualified Code(s): I50.9 - Heart failure, unspecified (4) Chronic atrial fibrillation: Rate controlled. Continue current regimen Status: Acute Attestations Medical Necessity Statement*: Patient require continuation hospitalization for above defined care. Coding Level of Care Code Acute Carton Stamper for Dylan Villela Diagnoses Pulmonary HTN I27.20 Acute respiratory failure J96.01 Respiratory failure complication: hypoxia Congestive heart failure I50.9 Heart failure chronicity: acute Heart failure type: unspecified Chronic atrial fibrillation I48.20
[2021-06-30] MEDS: atorvastatin 40 mg Tablet PO (21:15)
[2021-06-30 21:30] LABS: Glucose Point of Care 185 mg/dL (70-110)
[2021-07-01] VITALS (59 sets, daily range): BP systolic 114–150; BP diastolic 71–99; PULSE 75–101; RESP 15–40; TEMP 35.9–37.1; O2SAT 72–98
--- NOTE | 2021-07-01 02:38 | PC.NURSE ---
Patient given Ativan PRN during shift, had tolerated during previous shifts per report; patient has had intermittent episodes of confusion, pulling off oxygen, attempting to get out of bed. Reoriented multiple times. Would advise to discontinue Ativan.
[2021-07-01] MEDS: ipratropium-albuterol 3 mL Neb INHALATION ×6 (03:02→23:45)
[2021-07-01] MEDS: piperacillin-tazobactam 3.375 GM in sodium chloride 0.9% (plus) 50 ML IV ×3 (04:17→20:29)
[2021-07-01 05:04] LABS: Basophils % 0.1 %; Eosinophils % 0.1 %; Hematocrit 35.4 % (42.0-52.0); Lymphocytes # 0.7 10^3/uL (0.8-4.8); Lymphocytes % 4.4 %; Mean Corpuscular HGB Conc 31.1 g/dL (30.0-36.0); Mean Corpuscular Hemoglobin 28.1 pg (28.0-34.0); Mean Corpuscular Volume 90.3 fl (80-94); Mean Platelet Volume 13.3 fL (7.4-10.4); Monocytes # 0.9 10^3/uL (0.2-0.9); Monocytes % 5.8 %; Neutrophils # 13.87 10^3/uL (1.8-7.7); Neutrophils % 88.8 %; Nucleated Red Blood Cells % 0 %; Platelet Count 194 10^3/cmm (130-400); Red Blood Count 3.92 10^6/uL (4.1-5.3); Red Cell Distribution Width 18.7 % (12.1-15.1); White Blood Count 15.6 10^3/uL (4.0-10.0)
[2021-07-01 05:39] LABS: NT Pro B Type Natriuretic Pept 14753 pg/mL (0-450); Procalcitonin 0.09 ng/mL (0-0.5)
[2021-07-01 05:51] LABS: Alanine Aminotransferase 9 U/L (0-41); Albumin Level 3.2 g/dL (3.5-5.2); Alkaline Phosphatase 73 IU/L (40-130); Anion Gap 17.2 (5-19); Aspartate Amino Transferase 19 U/L (0-40); Blood Urea Nitrogen 25 mg/dL (8-23); C Reactive Protein 22.9 mg/L (0.0-4.9); Calcium 8.7 mg/dL (8.5-10.5); Carbon Dioxide 21 mmol/L (22-29); Chloride 98 mmol/L (98-107); Globulin 3.1 g/dL (1.3-4.6); Glucose 137 mg/dL (65-115); Magnesium 2.3 mg/dL (1.7-2.3); Osmolality Calculated 281 mOsm/kg (285-295); Potassium 4.2 mmol/L (3.5-5.1); Sodium 132 mmol/L (136-145); Total Bilirubin 0.7 mg/dL (0.15-1.2); Total Protein 6.3 g/dL (6.6-8.7)
--- NOTE | 2021-07-01 07:00 | XR_ITS ---
WS: [id number] XR chest 1V portable [id number] REASON FOR EXAM: sob FINDINGS: The chest is unchanged compared to the previous examination of 06/27/2021. Extensive calcified plaque and calcified granulomatous disease. Moderate right pleural effusion, smal ler left pleural effusion. XR/XR chest 1V portable [id number] IMPRESSION: Stable abnormal chest. Difficult to identify infiltrates in this patient due to the extensive calcifie d plaque. CT scan of the chest 06/27/2021 demonstrated no significant infiltrate s.
[2021-07-01 07:46] LABS: Glucose Point of Care 118 mg/dL (70-110)
[2021-07-01] MEDS: potassium chloride ER 20 mEq Tablet 40 MEQ PO (08:21)
[2021-07-01] MEDS: metoprolol tartrate 25 mg Tablet PO ×2 (08:21→20:29)
[2021-07-01] MEDS: predniSONE 20 mg Tablet 40 MG PO (08:21)
[2021-07-01] MEDS: rivaroxaban 10 mg Tablet 20 MG PO (08:21)
[2021-07-01] MEDS: aspirin 81 mg EC Tablet PO (08:22)
[2021-07-01] MEDS: FUROsemide 10 mg/mL SDV 10mL 60 MG IVP (11:24)
[2021-07-01 11:28] LABS: Glucose Point of Care 136 mg/dL (70-110)
--- NOTE | 2021-07-01 15:32 | PC.RESP ---
RT Shift Note Frequent safety and respiratory rounds continue. Orders completed as indicated. Patient monitored pre and post treatments throughout shift. Patient [Did.] tolerate treatments appropriately. Condition [.DidNotChange]. Patient and/or agricultural sales representative educated on respiratory treatment and medications. Patient and/or agricultural sales representative [verbalized understanding]. Will continue to monitor patient progress.
--- NOTE | 2021-07-01 16:30 | P.PN_ITS ---
Subjective Subjective: Interval history: Patient was seen this morning, currently is on 70% FiO2, he tells me that he feels a lot better, but he does get short of breath with minimal exertion such as getting up to the side of the bed, no chest pain Overnight he did have episodes of confusion, did receive Ativan, that resulted in increased confusion, his mentation has significantly improved since then, currently alert to person, to place, not to time, but does follow commands I had an extensive discussion with patient and his sister at bedside this afternoon, I discussed patient's biventricular heart failure, decompensated heart failure, severe pulmonary hypertension, concerns for pneumonia, his deconditioning, his atrial fibrillation, his high oxygen requirements, I advised patient and his sister that he likely will require chronic oxygen therapy for some period of time, as we slowly start to diurese him, and continue antibiotic therapy, however this process might take a few weeks, and I strongly recommended for placement at [facility], patient was accepted to [facility] [place], however patient and his sister would rather for him to be placed in a facility near [facility] where the rest of his family is, he did say that if they could not find a facility near [place] he would be okay with [place] as a second option Vitals/I&O/Wt Last Vital Signs Temp 96.7 F L 07/01/21 04:31 Pulse 80 07/01/21 15:31 Resp 22 H 07/01/21 15:31 BP 132/96 07/01/21 13:30 Pulse Ox 90 07/01/21 15:31 07/01/21 07/01/21 07/01/21 06:59 14:59 22:59 Intake Total 50 / 1882 410 / 410 50 / 460 Output Total 340 / 865 Balance -290 / 1017 410 / 410 50 / 460 Physical Exam Const: COMMON NORMALS: no acute distress GENERAL APPEARANCE: cooperative and frail appearing ORIENTATION/CONSCIOUSNESS: Yes awake, Yes oriented to person and Yes oriented to place; not oriented to time Chest: COMMONS NORMALS: normal inspection of the chest Resp: COMMON NORMALS: normal respiratory effort, No retractions and No use of accessory muscles AUSCULTATION: crackles Cardio: COMMON NORMALS: regular rate, S1 normal heart sound present and S2 normal heart sound present RATE: regular rate RHYTHM: abnormal rhythm irregularly irregular HEART SOUNDS: S1 normal heart sound present and S2 normal heart sound present Extremity: COMMON NORMALS: no pedal edema Neuro: SENSORIUM/ORIENTATION: Yes oriented to person, Yes oriented to place and No oriented to time Urinary Catheter Management^: Alvarado: Cath Placed During This Visit: yes Reason for Continuing Indwelling Catheter: Accurate Measurement of Urinary Output in Critically Ill Patients Urinary Catheter Date of Insertion: 06/28/21 Urinary Catheter Time of Insertion: 08:25 Data : 07/01/21 04:40 07/01/21 04:40 Micro: Microbiology 06/30/21 09:23 Gram Stain - Final Sputum - Expectorated Sputum Sputum Culture - Preliminary A&P Assessment and plan (1) Acute respiratory failure: Acute hypoxic respiratory failure secondary to biventricular heart failure, decompensated HFpEF as well as RHF and Severe Pulmonary HTN Cardiac echocardiogram on February 2021 1-Normal left ventricular cavity size. Normal left ventricular systolic function. Left ventricular ejection fraction is estimated at 55 %. Flattened septum in diastole consistent with right ventricle volume overload. 2-Severely increased right ventricular size. Moderately decreased right ventricular systolic function. Moderate pulmonary hypertension, RVSP 37.6 mmHg. 3-Moderately increased right atrial size. 4-Severely thickened mitral valve. Severe mitral annular calcification. No mitral valve stenosis. No mitral valve regurgitation. 5-Severe aortic valve calcification. Mild aortic valve stenosis, mean gradient 4.5 mmHg, SRIKANTH 2.1 cm squared. No aortic valve regurgitation. 6-Severe tricuspid valve regurgitatio. 7-There is no pericardial effusion. 8-When compared to the prior echocardiogram dated April 22, 2020 right ventricle is severely enlarged with moderate to severely depressed function. CT angiogram of the chest on admission showed 1. There is no evidence for pulmonary emboli. 2. Stable calcified pleural plaques present bilaterally. 3. Small right pleural effusion 4. Patchy opacities superimposed over the right pleural effusion compatible with atelectasis. A right basilar infiltrate and pneumonia cannot be entirely excluded. 5. Stable mildly irregular ground-glass opacity in the left upper lobe measuring 14 mm may represent chronic parenchymal scarring. Follow-up chest CT is suggested at 3 years and 5 years.(Reference: Yani) 6. Benign cyst in the upper pole of right kidney measuring 1.7 cm. No further workup needed. 7. Small volume ascites seen adjacent to the liver and spleen and within the lesser sac. Rapid Covid, Covid PCR negative Chest x-ray this morning shows moderate right pleural effusion, small left pleural effusion, Plan Continue Lasix 60 mg IV push daily, creatinine 1.1, potassium 4.2, -1.2 L Can consider thoracocentesis based on clinical progress Intake output charting Daily weight k>4, mg >2 Nifedipine 30 mg p.o. daily ( on hold ) Imdur on hold Metoprolol 25 mg twice daily Continue Zosyn, follow cultures Currently off Levophed Currently on high flow nasal cannula, wean as tolerated, BiPAP as needed Working on [facility] placement near [place] Status: Acute Qualifiers: Respiratory failure complication: hypoxia Qualified Code(s): J96.01 - Acute respiratory failure with hypoxia (2) Heart failure: Plan as above Status: Acute (3) Pneumonia: Possible although unlikely pneumonia right lung. Right pleural effusion is from heart failure. Procalcitonin negative WBC 15.6 Given his respiratory status currently on Zosyn, check sputum culture Status: Acute (4) Chronic atrial fibrillation: On metoprolol, Xarelto. Status: Acute Additional A&P Information History of diabetes. Continue sliding scale insulin. Coronary artery disease. Continue beta-golden, statin Multiple other medical problems as outlined in past medical history History of pleural classifications, status post partial resection of left lower lobe Atrial fibrillation on Xarelto Full code He is on Xarelto which will suffice for DVT prophylaxis Attestations Medical Necessity Statement*: Patient requires hospitalization for biventricular heart failure, decompensated heart failure, A. fib, pneumonia, high flow oxygen requirements, requiring placement to [facility] Coding Level of Care Code Acute Hospitality Host for [facility] Diagnoses Acute respiratory failure J96.01 Respiratory failure complication: hypoxia Heart failure I50.9 Pneumonia J18.9 Chronic atrial fibrillation I48.20
[2021-07-01 17:06] LABS: Glucose Point of Care 143 mg/dL (70-110)
--- NOTE | 2021-07-01 18:39 | PC.NURSE ---
Shift Note Frequent safety and comfort rounds continue. Orders and nursing care completed as indicated. Patient monitored for response to intervention and treatment. Pt sister visited this afternoon. Dr. Stevens discussed plan of care with sister and Mr. Bhakta. They preferred being placed in a facility closer to them, social workers were notified. Pt had a BM and 1350ml out in urine this shift. between Education provided includes Oxygen safety, and frequent position changes. Patient and Sister verbalized understanding. Will continue to monitor.
[2021-07-01] MEDS: atorvastatin 40 mg Tablet PO (20:29)
[2021-07-01 21:24] LABS: Glucose Point of Care 184 mg/dL (70-110)
[2021-07-02] VITALS (30 sets, daily range): BP systolic 114–154; BP diastolic 75–100; PULSE 65–95; RESP 12–38; TEMP 36.1–36.5; O2SAT 84–98
[2021-07-02] MEDS: ipratropium-albuterol 3 mL Neb INHALATION ×4 (03:14→20:40)
[2021-07-02] MEDS: piperacillin-tazobactam 3.375 GM in sodium chloride 0.9% (plus) 50 ML IV ×3 (03:18→21:24)
[2021-07-02 03:56] LABS: Basophils % 0.1 %; Hematocrit 36.1 % (42.0-52.0); Hemoglobin 11.2 g/dL (11.7-16.6); Lymphocytes # 0.7 10^3/uL (0.8-4.8); Lymphocytes % 5.3 %; Mean Corpuscular Hemoglobin 28.6 pg (28.0-34.0); Mean Corpuscular Volume 92.3 fl (80-94); Mean Platelet Volume 13.2 fL (7.4-10.4); Monocytes # 0.6 10^3/uL (0.2-0.9); Monocytes % 4.5 %; Neutrophils # 12.03 10^3/uL (1.8-7.7); Neutrophils % 89.6 %; Nucleated Red Blood Cells % 0 %; Platelet Count 198 10^3/cmm (130-400); Red Blood Count 3.91 10^6/uL (4.1-5.3); Red Cell Distribution Width 18.8 % (12.1-15.1); White Blood Count 13.4 10^3/uL (4.0-10.0)
[2021-07-02 04:37] LABS: NT Pro B Type Natriuretic Pept 19166 pg/mL (0-450); Procalcitonin 0.07 ng/mL (0-0.5)
[2021-07-02 04:48] LABS: Alanine Aminotransferase 15 U/L (0-41); Albumin Level 3.3 g/dL (3.5-5.2); Alkaline Phosphatase 72 IU/L (40-130); Anion Gap 13.2 (5-19); Aspartate Amino Transferase 29 U/L (0-40); Blood Urea Nitrogen 27 mg/dL (8-23); Calcium 8.7 mg/dL (8.5-10.5); Carbon Dioxide 25 mmol/L (22-29); Chloride 102 mmol/L (98-107); Globulin 2.6 g/dL (1.3-4.6); Glucose 116 mg/dL (65-115); Magnesium 2.2 mg/dL (1.7-2.3); Osmolality Calculated 288 mOsm/kg (285-295); Phosphorus 3.2 mg/dL (2.5-4.5); Potassium 4.2 mmol/L (3.5-5.1); Sodium 136 mmol/L (136-145); Total Bilirubin 0.8 mg/dL (0.15-1.2); Total Protein 5.9 g/dL (6.6-8.7)
--- NOTE | 2021-07-02 05:35 | PC.NURSE ---
Shift Note Frequent safety and comfort rounds continue. Pt was confused throughout the night. Reoriented patient to place and situation often. Orders and nursing care completed as indicated. Patient monitored for response to intervention and treatment. Education provided includes pain management. Patient verbalized understanding. Will continue cares.
[2021-07-02 06:44] LABS: Glucose Point of Care 118 mg/dL (70-110)
[2021-07-02] MEDS: potassium chloride ER 20 mEq Tablet 40 MEQ PO (07:59)
[2021-07-02] MEDS: rivaroxaban 10 mg Tablet 20 MG PO (07:59)
[2021-07-02] MEDS: metoprolol tartrate 25 mg Tablet PO ×2 (07:59→21:23)
[2021-07-02] MEDS: predniSONE 20 mg Tablet 40 MG PO (07:59)
[2021-07-02] MEDS: aspirin 81 mg EC Tablet PO (07:59)
--- NOTE | 2021-07-02 09:10 | PC.SOCIAL ---
IMM Update Pg. 2 of IMM updated and reviewed with patient, who verbalized understanding. Copy provided.
--- NOTE | 2021-07-02 09:30 | PC.CHAP ---
Pastoral Care Encounter/Spiritual Assessment Type of Contact [] Declined head of product visit [] Patient/Family/Request visit [] Outpatient visit [] Follow-up visit [] Physician referral [] Code/Alert [x] Routine visit [] Staff referral [] Actively dying [] Patient sleeping [] Family support [] [] Out of room [] Palliative care [] [] Receiving care in room [] Pre-surgical visit [] Trauma [] Long length of stay [x] ICU visit [] Other: Relational/Emotional Strength [] Patient feels connected with others/family/visitors/staff [] Distress [] Loneliness/isolation [] Abandonment Spirituality of Patient [] Person of So [] Attends [employer] of their So [] Believes in Prayer [] Reads Bible or Confucianism materials [] There are Spiritual issues to be addressed Hospital Coordinator Interventions [x] Prayer [x] Active listening [x] Non-anxious presence [x] Spiritual/emotional support [] Crisis/trauma care [] Spiritual counseling [] Bereavement support [] Provided bereavement packet [] Provided Bible/devotional materials [] Provided toy/stuffed animal, coloring book to patient or family member [] Provided Communion [] Anointing/[place] [] Salvation [x] Completed spiritual assessment [] Other: Impact on Illness or Injury [] Angry [] Fearful [] Anxious [] Often cries [] Exhaustion [] Unable to work [] Unable to attend [employer] [] Unable to walk/stand [] Unable to read [] Unable to drive [] Unable to eat/drink [] Unable to sleep [] Unable to be with family [] Patient intubated [] Other: Summary met patient in room 5... relocated to room with window per patient request... patient seems confused, not comprehending the whys and whats of him being in the hospital.... states he will never leave here (will not get well enough to leave).. spoke briefly with nurse, they are trying to help him understand and encouragement Time spent with patient 15 min
[2021-07-02] MEDS: FUROsemide 10 mg/mL SDV 10mL 60 MG IVP (11:03)
[2021-07-02 11:05] LABS: Glucose Point of Care 129 mg/dL (70-110)
[2021-07-02] MEDS: quetiapine 25 mg Tablet 50 MG PO (17:01)
[2021-07-02 17:17] LABS: Glucose Point of Care 170 mg/dL (70-110)
--- NOTE | 2021-07-02 17:22 | P.PN_ITS ---
Subjective Subjective: Interval history: Patient continues to steadily improve breathing. He is thinking of hospice due to underlying comorbidities Medications: Reviewed: Yes Vitals/I&O/Wt Last Vital Signs Temp 97.7 F 07/02/21 16:00 Pulse 83 07/02/21 16:00 Resp 12 07/02/21 16:00 BP 114/81 07/02/21 13:00 Pulse Ox 93 07/02/21 16:00 07/02/21 07/02/21 07/02/21 06:59 14:59 22:59 Intake Total 150 / 1090 50 / 50 50 / 100 Output Total 400 / 1750 Balance -250 / -660 50 / 50 50 / 100 Physical Exam Narrative: EXAM NARRATIVE: GENERAL: Patient is alert, awake and oriented x3. NECK: No jugular vein distension. HEENT: No cyanosis. No icterus. No pallor. HEART: Irregularly rate S1 and S2. No murmur, rub or gallop. LUNGS: Reduced breath sounds with bilateral lower lobe inspiratory crackles ABDOMEN: Slightly firm, nontender and mild distended. No guarding, rebound or tenderness. CENTRAL NERVOUS SYSTEM: Grossly nonfocal. EXTREMITIES: Lower extremities with trace edema bilaterally. Urinary Catheter Management^: Alvarado: Cath Placed During This Visit: yes Reason for Continuing Indwelling Catheter: Accurate Measurement of Urinary Output in Critically Ill Patients Urinary Catheter Date of Insertion: 06/28/21 Urinary Catheter Time of Insertion: 08:25 Data : 07/02/21 03:33 07/02/21 03:33 Micro: Microbiology 06/30/21 09:23 Gram Stain - Final Sputum - Expectorated Sputum Sputum Culture - Final A&P Assessment and plan (1) Pulmonary HTN: It appeared to me that patient is in right-sided heart failure with severe pulmonary hypertension. Patient is at advanced age of pulmonary hypertension. There is very hard unfortunately to provide relief completely with reversible process. We recommend continuing off and on BiPAP oxygen through nasal cannula, to reduce congestion I will increase Lasix to 60 mg. I will add isosorbide mononitrate. We will try to ask for sildenafil which does not appear to be in the pharmacy for now. At this point we would like to add sildenafil it is not available in our formulary may will last as an outpatient. Patient require to follow-up with dedicated pulmonary hypertension clinic possibly at [facility] where he will may need right heart cath to study reversibility based upon that further plan will be advised. As defined above patient has severe pulmonary arterial disease, due to high right-sided pressures and because of fact diuresis and vasodilator it is very hard to maintain blood pressure at this point we recommend stopping Lasix agree with Levophed for now. May add sildenafil after deseeding isosorbide if s ildenafil is available. Continue BiPAP oxygen. Consider following up with dedicated pulmonary hypertension clinic at [facility] Continue as per plan. Patient is slightly steady now off pressors I have detailed discussion with the patient he has severe pulmonary hypertension and right-sided failure. He is not a candidate for transplant or would not like to go to [facility] to special pulmonary clinic for endothelial receptor golden. We recommend adding sildenafil and taking off nitroglycerin. Patient should be given in that case clear-cut instruction not to take nitroglycerin with sildenafil which can cause profound hypotension and worse case scenario . Continue regular medication. Patient would like to consider hospice he is talking to social work [facility] and hospice team Status: Acute (2) Acute respiratory failure: As per medicine Status: Acute Qualifiers: Respiratory failure complication: hypoxia Qualified Code(s): J96.01 - Acute respiratory failure with hypoxia (3) Congestive heart failure: Patient is compensated continue holding diuretics for now Status: Acute Qualifiers: Heart failure chronicity: acute Heart failure type: unspecified Qualified Code(s): I50.9 - Heart failure, unspecified (4) Chronic atrial fibrillation: Rate controlled. 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
--- NOTE | 2021-07-02 17:51 | P.PN_ITS ---
Subjective Subjective: Interval history: -This morning patient was examined, he tells me that he is feeling a lot better, but he wants to get out of the hospital, he does not want to go to [place], he does not want to go to [place] he wants to go home, he is tired of being here in the hospital, I discussed options available to him, he is interested in hospice but he would like to discuss it with family and I in a family meeting -Patient was reexamined this afternoon, sitting up in a chair, currently on 75% FiO2, 35 L, has had good urine output -He is much more alert, and awake, alert to person, to place, to time -Family at bedside, his 2 sisters are present, and [id number] -The following discussion was made with the nursing staff at bedside, including caseworkers -I had an extensive discussion with patient's family about his biventricular heart failure, his moderate tricuspid valve regurg, his severe pulmonary hypertension -He is underlying medical history include CABG, type 2 diabetes mellitus, chronic A. fib -I discussed with family patient's biventricular heart failure, his severe pulmonary hypertension, is currently CHF exacerbation with pneumonia -Patient clinically is improving, but his oxygen requirements remain profound at 75% FiO2 35 L -Given his biventricular heart failure and severe pulmonary hypertension he will likely require long-term care at a long-term care facility that could give this amount of oxygen, and carefully diurese him, monitor his renal function, he also has significant deconditioning, when he get him up to the side of bed he desatu rates, he is weak, he becomes hypotensive, he requires a lot of nursing care -I advised that if we want to continue medical intervention, the best option for him would be select, and would give him a chance to do appropriate rehab, upon rehab, physical therapy, and see if we can get his oxygen requirements down, but he might room require to be at a facility like [facility] for an indefinite amount of time -With for his pulmonary hypertension, currently he is not stable enough for us to refer him to the pulmonary hypertension clinic in [place], nonetheless he would have to have a right heart cath to determine the causes pulmonary hypertension and there is are significant risks associated with the right heart cath, nonetheless given his age and his comorbidities he likely will not be during a suitable candidate for further evaluation and testing, but we could always continue medical intervention, get him to a long-term care facility and see how his clinical progress is and reexamined this later on -If patients wish to go home, he does not want to remain in the hospital anymore, he does not want to remain under hospitalist care, he does not want to go to [facility], he does not want to go far from family, only long-term care facilities are in [facility], he wants to remain at home with his family -I advised patient that only viable option to get him home would be hospice, hos pice would emphasize a quality of life, understanding that he has end-stage biventricular heart failure, pulmonary hypertension, all her managements would be involved in improving his symptomatology, but unlikely to improve the longevity of life. Thus hospice would emphasize a quality of life that he could spend at home, as he wants to go home we could get him home, we could continue a lot of his medications at home, and allow him to enjoy the rest of his remaining time however long that might be at home with his family. Currently he is requiring 75% FiO2 35 L, he only can get 18 L at home, thus this means that he will have significant hypoxia on the way home, and at home, associate with m orbidity and mortality. We can do our best to see if we can get his oxygen requirements down with more diuresis, and monitoring here in the hospital, but we might not be able to, and this is a real possibility. Nonetheless, patient is agreeable to go home, he does understand and family does understand that there is significant hypoxic risk going home, but he tells me that he wants to be at home he wants to be with family. -I discussed all options with patient, with family, discussed the risk and benefits of all options, all parties voiced understanding, all questions answered -Patient has chosen hospice option, discussed the risk and benefits, he wishes any, all questions answered, agreed to proceed -I discussed patient's CODE STATUS, he would like to change his CODE STATUS to DNR/DNI -He would like more family members to visit him, currently in ICU, move him to a private room on the second floor - patient wants me to do everything in my power to try to get him home I advised him I will do my best, but he might require significant amount of oxygen which we will be able to duplicate, but I will do my best, Vitals/I&O/Wt Last Vital Signs Temp 97.7 F 07/02/21 16:00 Pulse 83 07/02/21 16:00 Resp 12 07/02/21 16:00 BP 114/81 07/02/21 13:00 Pulse Ox 93 07/02/21 16:00 07/02/21 07/02/21 07/02/21 06:59 14:59 22:59 Intake Total 150 / 1090 50 / 50 50 / 100 Output Total 400 / 1750 Balance -250 / -660 50 / 50 50 / 100 Physical Exam Const: COMMON NORMALS: no acute distress GENERAL APPEARANCE: cooperative a nd frail appearing ORIENTATION/CONSCIOUSNESS: Yes awake, Yes oriented to person, Yes oriented to place and Yes oriented to time Resp: COMMON NORMALS: normal respiratory effort, No retractions, No use of accessory muscles and clear to auscultation bilaterally AUSCULTATION: clear to auscultation bilaterally Cardio: COMMON NORMALS: S1 normal heart sound present and S2 normal heart sound present RHYTHM: abnormal rhythm irregularly irregular HEART SOUNDS: S1 normal heart sound present and S2 normal heart sound present GI: COMMON NORMALS: Normal to inspection, nondistended, normoactive bowel sounds present, Soft to palpation and non-tender PALPATION: Yes Soft to palpation Extremity: COMMON NORMALS: normal to inspection, full ROM and capillary refill normal Neuro: SENSORIUM/ORIENTATION: Yes oriented to person, Yes oriented to place and Yes oriented to time Urinary Catheter Management^: Alvarado: Cath Placed During This Visit: yes Reason for Continuing Indwelling Catheter: Accurate Measurement of Urinary Output in Critically Ill Patients Urinary Catheter Date of Insertion: 06/28/21 Urinary Catheter Time of Insertion: 08:25 Data : 07/02/21 03:33 07/02/21 03:33 Micro: Microbiology 06/30/21 09:23 Gram Stain - Final Sputum - Expectorated Sputum Sputum Culture - Final A&P Assessment and plan (1) Acute respiratory failure: Acute hypoxic respiratory failure secondary to biventricular heart failure, decompensated HFpEF as well as RHF and Severe Pulmonary HTN Cardiac echocardiogram on February 2021 1-Normal left ventricular cavity size. Normal left ventricular systolic function. Left ventricular ejection fraction is estimated at 55 %. Flattened septum in diastole consistent with right ventricle volume overload. 2-Severely increased right ventricular size. Moderately decreased right ventricular systolic function. Moderate pulmonary hypertension, RVSP 37.6 mmHg. 3-Moderately increased right atrial size. 4-Severely thickened mitral valve. Severe mitral annular calcification. No mitral valve stenosis. No mitral valve regurgitation. 5-Severe aortic valve calcification. Mild aortic valve stenosis, mean gradient 4.5 mmHg, SRIKANTH 2.1 cm squared. No aortic valve regurgitation. 6-Severe tricuspid valve regurgitatio. 7-There is no pericardial effusion. 8-When compared to the prior echocardiogram dated April 22, 2020 right ventricle is severely enlarged with moderate to severely depressed function. CT angiogram of the chest on admission showed 1. There is no evidence for pulmonary emboli. 2. Stable calcified pleural plaques present bilaterally. 3. Small right pleural effusion 4. Patchy opacities superimposed over the right pleural effusion compatible with atelectasis. A right basilar infiltrate and pneumonia cannot be entirely excluded. 5. Stable mildly irregular ground-glass opacity in the left upper lobe measuring 14 mm may represent chronic parenchymal scarring. Follow-up chest CT is suggested at 3 years and 5 years.(Reference: Yani) 6. Benign cyst in the upper pole of right kidney measuring 1.7 cm. No further workup needed. 7. Small volume ascites seen adjacent to the liver and spleen and within the lesser sac. Rapid Covid, Covid PCR negative Has bilateral pleural effusions Plan Patient wants to proceed to hospice CODE STATUS has been changed to DNR/DNI Still on 35 L 75% FiO2, will do my best to try to decrease his oxygen requirements, so I can as best as I can get him home in a safe fashion, but there is a significant possibility that he might require significant amount of oxygen that cannot be duplicated at home or on transport that is associated with morbidity and mortality, patient and family wish understanding, all questions answered, agreed to proceed We will increase diuresis today, he is preload dependent with his biventricular heart failure Continue Lasix 60 mg IV push daily, 20 mg in the evening, creatinine 1.1, potassium 4.2, -1.2 L Intake output charting Daily weight k>4, mg >2 Nifedipine 30 mg p.o. daily ( on hold ) Imdur on hold Metoprolol 25 mg twice daily Continue Zosyn, follow cultures Currently on high flow nasal cannula, wean as tolerated, BiPAP as needed Status: Acute Qualifiers: Respiratory failure complication: hypoxia Qualified Code(s): J96.01 - A cute respiratory failure with hypoxia (2) Heart failure: Plan as above Status: Acute (3) Pneumonia: Status: Acute (4) Chronic atrial fibrillation: On metoprolol, Xarelto. Status: Acute Additional A&P Information History of diabetes. Continue sliding scale insulin. Coronary artery disease. Continue beta-golden, statin Multiple other medical problems as outlined in past medical history History of pleural classifications, status post partial resection of left lower lobe Atrial fibrillation on Xarelto Full code He is on Xarelto which will suffice for DVT prophylaxis Attestations Medical Necessity Statement*: Patient has biventricular heart failure, pulmonary pretension, severe tricuspid valve regurg, proceeding to home hospice Coding Level of Care Code Acute Yard Clerk for [facility] Tika Diagnoses Acute respiratory failure J96.01 Respiratory failure complication: hypoxia Heart failure I50.9 Pneumonia J18.9 Chronic atrial fibrillation I48.20
--- NOTE | 2021-07-02 17:53 | PC.NURSE ---
Report called to MELISSA Nesbitt on [facility]. Pt to be transferred to room 272 on [facility].
--- NOTE | 2021-07-02 17:54 | PC.NURSE ---
Shift Note Frequent safety and comfort rounds continue. Orders and nursing care completed as indicated. Patient monitored for response to intervention and treatments. Pt had procedure with Dr. Yeh this afternoon, see reports. Pt family called and visited this afternoon, verbalized understanding. Pt still on HHF at 55L with FiO2 of 70 %. Diet resumed this evening. Education provided on current antibiotics, breathing techiques, and oxygen safety. Patient verbalized understanding. Will continue to monitor.
--- NOTE | 2021-07-02 18:21 | PC.NURSE ---
Shift Note Frequent safety and comfort rounds continue. Orders and nursing care completed as indicated. Patient monitored for response to intervention and treatments. Pt up to chair today for 4 hours. Family meeting at patient's bedside this afternoon. Dr. Stevens, advisory services associate and this nurse present. Discussion was to assist in the patient's decision for next step in plan of care. Pt to be transferred to [facility] 272 this evening. Education provided includes hospice care, select facility care, oxygen safety, and frequent position changes, verbalized understanding. Will continue to monitor.
[2021-07-02] MEDS: FUROsemide 10 mg/mL SDV 2mL 20 MG IVP (18:29)
--- NOTE | 2021-07-02 20:42 | XRR_ITS ---
PROCEDURE INFORMATION: Exam: XR Chest Exam date and time: 07/02/2021 8:42 PM Age: 81 years old Clinical indication: Shortness of breath; Additional info: SOB TECHNIQUE: Imaging protocol: XR of the chest. Views: 1 view. COMPARISON: CR XR chest 1V portable [id number] 07/01/2021 5:34 AM FINDINGS: Lungs: Extensive ill-defined opacity in the lower left lung. Moderate opacity on the right. Pleural spaces: Possible left pleural effusion. No pneumothorax. Heart/Mediastinum: The cardiac silhouette is largely obscured. Diaphragm: Left hemidiaphragm is obscured. Bones/joints: Sternal wires are present. There is no displacement to suggest sternal dehiscence. Bones are unremarkable. XR/XR chest 1V portable [id number] IMPRESSION: No change since yesterday. Radiation Dose CTDIVOL = (mGy): DLP = (mGy-cm)
[2021-07-02 20:54] LABS: Glucose Point of Care 144 mg/dL (70-110)
[2021-07-02] MEDS: atorvastatin 40 mg Tablet PO (21:23)
[2021-07-03] VITALS (16 sets, daily range): BP systolic 105–141; BP diastolic 65–91; PULSE 69–89; RESP 17–22; TEMP 36.4–36.9; O2SAT 82–100
[2021-07-03] MEDS: LORazepam 2 mg/mL INJ 1 mL 0.5 MG IVP ×2 (01:01→21:21)
[2021-07-03] MEDS: ipratropium-albuterol 3 mL Neb INHALATION ×4 (03:34→20:42)
[2021-07-03] MEDS: piperacillin-tazobactam 3.375 GM in sodium chloride 0.9% (plus) 50 ML IV ×2 (04:31→11:02)
[2021-07-03 06:26] LABS: Basophils % 0.1 %; Eosinophils % 0.2 %; Hematocrit 35.4 % (42.0-52.0); Lymphocytes # 1.1 10^3/uL (0.8-4.8); Lymphocytes % 7.8 %; Mean Corpuscular HGB Conc 31.1 g/dL (30.0-36.0); Mean Corpuscular Hemoglobin 28.6 pg (28.0-34.0); Mean Corpuscular Volume 91.9 fl (80-94); Mean Platelet Volume 13.2 fL (7.4-10.4); Monocytes % 7.5 %; Nucleated Red Blood Cells % 0 %; Platelet Count 203 10^3/cmm (130-400); Red Blood Count 3.85 10^6/uL (4.1-5.3); Red Cell Distribution Width 18.4 % (12.1-15.1); White Blood Count 13.8 10^3/uL (4.0-10.0)
[2021-07-03 06:46] LABS: Alanine Aminotransferase 15 U/L (0-41); Albumin Level 3.3 g/dL (3.5-5.2); Alkaline Phosphatase 64 IU/L (40-130); Anion Gap 15.7 (5-19); Aspartate Amino Transferase 24 U/L (0-40); Blood Urea Nitrogen 30 mg/dL (8-23); C Reactive Protein 7.9 mg/L (0.0-4.9); Calcium 8.6 mg/dL (8.5-10.5); Carbon Dioxide 24 mmol/L (22-29); Chloride 100 mmol/L (98-107); Globulin 2.8 g/dL (1.3-4.6); Glucose 90 mg/dL (65-115); Magnesium 2.3 mg/dL (1.7-2.3); Osmolality Calculated 288 mOsm/kg (285-295); Phosphorus 3.7 mg/dL (2.5-4.5); Potassium 3.7 mmol/L (3.5-5.1); Sodium 136 mmol/L (136-145); Total Protein 6.1 g/dL (6.6-8.7)
[2021-07-03 07:07] LABS: Procalcitonin 0.09 ng/mL (0-0.5)
[2021-07-03 07:22] LABS: Slide Review Slide Review Perform
[2021-07-03] MEDS: rivaroxaban 10 mg Tablet 20 MG PO (08:27)
[2021-07-03] MEDS: potassium chloride ER 20 mEq Tablet 40 MEQ PO (08:27)
[2021-07-03] MEDS: predniSONE 20 mg Tablet 40 MG PO (08:27)
[2021-07-03] MEDS: quetiapine 25 mg Tablet 50 MG PO ×2 (08:27→17:22)
[2021-07-03] MEDS: aspirin 81 mg EC Tablet PO (08:27)
--- NOTE | 2021-07-03 08:58 | XR_ITS ---
WS: [id number] XR chest 1V portable [id number] REASON FOR EXAM: sob FINDINGS: Extensive calcified plaques. Bilateral pleural effusions. No change from 07/02/2021. No new abnormality. XR/XR chest 1V portable [id number] IMPRESSION: Stable abnormal chest.
[2021-07-03] MEDS: metoprolol tartrate 25 mg Tablet PO ×2 (09:15→20:50)
[2021-07-03] MEDS: FUROsemide 10 mg/mL SDV 10mL 60 MG IVP (11:00)
[2021-07-03 11:26] LABS: Glucose Point of Care 126 mg/dL (70-110)
--- NOTE | 2021-07-03 13:09 | PM.PN ---
Subjective Subjective: Interval history: Currently patient is on general medical floors, no lightheadedness, dizziness, nausea, no vomiting, no chest pain remains on 35 L 75% FiO2, he had a good breakfast, he diuresed over 1.4 L yesterday, Vitals/I&O/Wt Last Vital Signs Temp 98.1 F 07/03/21 11:33 Pulse 74 07/03/21 11:33 Resp 18 07/03/21 11:33 BP 132/77 07/03/21 11:33 Pulse Ox 98 07/03/21 11:33 07/02/21 07/03/21 07/03/21 22:59 06:59 14:59 Intake Total 530 / 580 50 / 630 290 / 290 Output Total 825 / 825 600 / 1425 Balance -295 / -245 -550 / -795 290 / 290 Physical Exam Const: COMMON NORMALS: no acute distress GENERAL APPEARANCE: frail appearing ORIENTATION/CONSCIOUSNESS: Yes awake, Yes oriented to person, Yes oriented to place and Yes oriented to time Resp: COMMON NORMALS: normal respiratory effort, No retractions and No use of accessory muscles AUSCULTATION: crackles and diminished lung sounds bilateral in the lower lung brooks Cardio: COMMON NORMALS: regular rate, regular rhythm, S1 normal heart sound present and S2 normal heart sound present RATE: regular rate RHYTHM: regular rhythm HEART SOUNDS: S1 normal heart sound present and S2 normal heart sound present GI: COMMON NORMALS: Normal to inspection, nondistended, normoactive bowel sounds present, Soft to palpation and non-tender PALPATION: Yes Soft to palpation Extremity: COMMON NORMALS: no pedal edema Neuro: SENSORIUM/ORIENTATION: Yes oriented to person, Yes oriented to place and Yes oriented to time Urinary Catheter Management^: Alvarado: Cath Placed During This Visit: yes Reason for Continuing Indwelling Catheter: Accurate Measurement of Urinary Output in Critically Ill Patients Urinary Catheter Date of Insertion: 06/28/21 Urinary Catheter Time of Insertion: 08:25 Data : 07/03/21 05:37 07/03/21 05:37 Micro: Microbiology 06/30/21 09:23 Gram Stain - Final Sputum - Expectorated Sputum Sputum Culture - Final A&P Assessment and plan (1) Acute respiratory failure: Acute hypoxic respiratory failure secondary to biventricular heart failure, decompensated HFpEF as well as RHF and Severe Pulmonary HTN Cardiac echocardiogram on February 2021 1-Normal left ventricular cavity size. Normal left ventricular systolic function. Left ventricular ejection fraction is estimated at 55 %. Flattened septum in diastole consistent with right ventricle volume overload. 2-Severely increased right ventricular size. Moderately decreased right ventricular systolic function. Moderate pulmonary hypertension, RVSP 37.6 mmHg. 3-Moderately increased right atrial size. 4-Severely thickened mitral valve. Severe mitral annular calcification. No mitral valve stenosis. No mitral valve regurgitation. 5-Severe aortic valve calcification. Mild aortic valve stenosis, mean gradient 4.5 mmHg, SRIKANTH 2.1 cm squared. No aortic valve regurgitation. 6-Severe tricuspid valve regurgitatio. 7-There is no pericardial effusion. 8-When compared to the prior echocardiogram dated April 22, 2020 right ventricle is severely enlarged with moderate to severely depressed function. CT angiogram of the chest on admission showed 1. There is no evidence for pulmonary emboli. 2. Stable calcified pleural plaques present bilaterally. 3. Small right pleural effusion 4. Patchy opacities superimposed over the right pleural effusion compatible with atelectasis. A right basilar infiltrate and pneumonia cannot be entirely excluded. 5. Stable mildly irregular ground-glass opacity in the left upper lobe measuring 14 mm may represent chronic parenchymal scarring. Follow-up chest CT is suggested at 3 years and 5 years.(Reference: Yani) 6. Benign cyst in the upper pole of right kidney measuring 1.7 cm. No further workup needed. 7. Small volume ascites seen adjacent to the liver and spleen and within the lesser sac. Rapid Covid, Covid PCR negative Has bilateral pleural effusions seen on chest x-ray Plan Patient wants to proceed to hospice CODE STATUS has been changed to DNR/DNI Still on 35 L 75% FiO2, will do my best to try to decrease his oxygen requirements, so I can as best as I can get him home in a safe fashion, but there is a significant possibility that he might require significant amount of oxygen that cannot be duplicated at home or on transport that is associated with morbidity and mortality, patient and family wish understanding, all questions answered, agreed to proceed We will increase diuresis today, add metolazone 10 mg Continue Lasix 60 mg IV push daily, 20 mg in the evening, creatinine 1.3, potassium 4.2, -2.9L In addition we can try an oxi pendent, I spoke to respiratory therapy, hospice can do 18 L Intake output charting Daily weight k>4, mg >2 Nifedipine 30 mg p.o. daily ( on hold ) Imdur on hold Metoprolol 25 mg twice daily Switch to Augmentin Currently on high flow nasal cannula, wean as tolerated, BiPAP as needed Status: Acute Qualifiers: Respiratory failure complication: hypoxia Qualified Code(s): J96.01 - Acute respiratory failure with hypoxia (2) Heart failure: Plan as above Status: Acute (3) Pneumonia: Status: Acute (4) Chronic atrial fibrillation: On metoprolol, Xarelto. Status: Acute Additional A&P Information History of diabetes. Continue sliding scale insulin. Coronary artery disease. Continue beta-golden, statin Multiple other medical problems as outlined in past medical history History of pleural classifications, status post partial resection of left lower lobe Atrial fibrillation on Xarelto Full code He is on Xarelto which will suffice for DVT prophylaxis Attestations Medical Necessity Statement*: Patient requires hospitalization for acute respiratory failure, proceeding to hospice, decreasing oxygen requirements, increase diuresis before discharge Coding Level of Care Code Acute Forensic Manager for [facility] Tika Diagnoses Acute respiratory failure J96.01 Respiratory failure complication: hypoxia Heart failure I50.9 Pneumonia J18.9 Chronic atrial fibrillation I48.20
[2021-07-03] MEDS: metOLazone 5 MG Tablet 10 MG PO (13:42)
[2021-07-03 17:11] LABS: Glucose Point of Care 176 mg/dL (70-110)
[2021-07-03] MEDS: amoxicillin-clav 875-125 mg Tablet 1 TAB PO (17:22)
[2021-07-03 20:33] LABS: Glucose Point of Care 176 mg/dL (70-110)
[2021-07-03] MEDS: atorvastatin 40 mg Tablet PO (20:50)
[2021-07-03] MEDS: FUROsemide 10 mg/mL SDV 2mL 20 MG IVP (20:51)
[2021-07-03] MEDS: acetaminophen 325 mg Tablet 650 MG PO (21:20)
[2021-07-03] MEDS: insulin lispro 100 unit/1 mL SUBCUT (21:21)
[2021-07-04] VITALS (16 sets, daily range): BP systolic 92–118; BP diastolic 54–82; PULSE 75–111; RESP 15–20; TEMP 35.7–37.1; O2SAT 89–96
[2021-07-04] MEDS: ipratropium-albuterol 3 mL Neb INHALATION ×5 (00:10→22:35)
[2021-07-04 05:58] LABS: Basophils % 0.1 %; Eosinophils # 0.2 10^3/uL (0.0-0.8); Eosinophils % 1.4 %; Hematocrit 35.4 % (42.0-52.0); Lymphocytes # 1.8 10^3/uL (0.8-4.8); Lymphocytes % 13.9 %; Mean Corpuscular HGB Conc 31.1 g/dL (30.0-36.0); Mean Corpuscular Hemoglobin 27.8 pg (28.0-34.0); Mean Corpuscular Volume 89.4 fl (80-94); Mean Platelet Volume 12.8 fL (7.4-10.4); Monocytes # 1.1 10^3/uL (0.2-0.9); Monocytes % 8.4 %; Neutrophils # 9.93 10^3/uL (1.8-7.7); Neutrophils % 75.7 %; Nucleated Red Blood Cells % 0 %; Platelet Count 191 10^3/cmm (130-400); Red Blood Count 3.96 10^6/uL (4.1-5.3); Red Cell Distribution Width 18.2 % (12.1-15.1); White Blood Count 13.1 10^3/uL (4.0-10.0)
[2021-07-04 06:33] LABS: Glucose Point of Care 114 mg/dL (70-110)
[2021-07-04 06:46] LABS: Alanine Aminotransferase 13 U/L (0-41); Albumin Level 3.2 g/dL (3.5-5.2); Alkaline Phosphatase 62 IU/L (40-130); Anion Gap 16.7 (5-19); Aspartate Amino Transferase 18 U/L (0-40); Blood Urea Nitrogen 35 mg/dL (8-23); Calcium 8.8 mg/dL (8.5-10.5); Carbon Dioxide 23 mmol/L (22-29); Chloride 101 mmol/L (98-107); Globulin 2.5 g/dL (1.3-4.6); Glucose 98 mg/dL (65-115); NT Pro B Type Natriuretic Pept 22752 pg/mL (0-450); Osmolality Calculated 292 mOsm/kg (285-295); Potassium 3.7 mmol/L (3.5-5.1); Sodium 137 mmol/L (136-145); Total Protein 5.7 g/dL (6.6-8.7)
[2021-07-04 08:20] LABS: Glucose Point of Care 99 mg/dL (70-110)
[2021-07-04] MEDS: aspirin 81 mg EC Tablet PO (08:37)
[2021-07-04] MEDS: predniSONE 20 mg Tablet 40 MG PO (08:37)
[2021-07-04] MEDS: metoprolol tartrate 25 mg Tablet PO (08:38)
[2021-07-04] MEDS: quetiapine 25 mg Tablet 50 MG PO ×2 (08:38→17:33)
[2021-07-04] MEDS: potassium chloride ER 20 mEq Tablet 40 MEQ PO ×2 (08:38→17:31)
[2021-07-04] MEDS: rivaroxaban 10 mg Tablet 20 MG PO (08:38)
[2021-07-04] MEDS: amoxicillin-clav 875-125 mg Tablet 1 TAB PO ×2 (08:38→17:31)
[2021-07-04] MEDS: FUROsemide 10 mg/mL SDV 10mL 60 MG IVP (10:04)
[2021-07-04] MEDS: metOLazone 5 MG Tablet 10 MG PO (10:05)
--- NOTE | 2021-07-04 10:37 | PC.SOCIAL ---
IMM Updated Updated pt & family on Pg 2 IMM. No questions voiced. Provided pt a copy. Initialed, dated, & timed copy in chart.
--- NOTE | 2021-07-04 12:13 | PM.DCS ---
Discharge Providers Date of Admission: 06/27/21 05:55 Date of Discharge: July 04, 2021 Attending Provider at Admission: Charly Barron Attending Provider at Discharge: Alexandro Stevens MD Primary Care Provider: Bill Corley DO Diagnoses at Discharge Discharge Diagnosis (1) Acute respiratory failure: Status: Acute Qualifiers: Respiratory failure complication: hypoxia Qualified Code(s): J96.01 - Acute respiratory failure with hypoxia (2) Heart failure: Status: Acute (3) Pneumonia: Status: Acute (4) Chronic atrial fibrillation: Status: Acute Reason for Visit Reason for Visit: SOB Hospital Course Hospital Course This is a 81-year-old male with a past medical history of biventricular heart failure, systolic and diastolic heart failure, pulmonary hypertension, moderate tricuspid valve regurg, history of CABG, chronic atrial fibrillation on Xarelto, type 2 diabetes mellitus, who presents to [facility] for shortness of breath Patient was admitted to [facility] for acute on chronic hypoxic respiratory failure secondary to biventricular heart failure, decompensated heart failure with systolic and diastolic dysfunction, right sided heart failure, and severe pulmonary hypertension, with admitted to the ICU, received broad-spectrum antibiotic therapy, diuretic therapy, high flow oxygen therapy, cardiology was consulted. patient remained on heated high flow oxygen despite optimal medical therapy for over 5 days, had severe pulmonary hypertension, biventricular heart failure, had extensive discussion with family and patient about options available including continued medical therapy and placement to a facility such as [facility] versus hospice. After discussing the risks and benefits, all parties voiced understanding, all questions answered, patient agreed to be discharged home on home hospice. Patient was weaned down to nonrebreather, will be discharged home on home hospice, Lasix 60 mg daily, potassium replacement. Physical Exam Const: COMMON NORMALS: no acute distress and patient oriented x3 Resp: COMMON NORMALS: normal respiratory effort, No retractions, No use of accessory muscles and clear to auscultation bilaterally AUSCULTATION: clear to auscultation bilaterally Cardio: COMMON NORMALS: regular rate, regular rhythm, S1 normal heart sound present and S2 normal heart sound present RATE: regular rate RHYTHM: regular rhythm HEART SOUNDS: S1 normal heart sound present and S2 normal heart sound present GI: COMMON NORMALS: Normal to inspection, nondistended, normoactive bowel sounds present, Soft to palpation and non-tender PALPATION: Yes Soft to palpation Extremity: COMMON NORMALS: no pedal edema Neuro: COMMON NORMALS: patient oriented x3 Psych: COMMON NORMALS: mental status grossly normal Urinary Catheter Management^: Alvarado: Cath Placed During This Visit: yes Reason for Continuing Indwelling Catheter: Hospice/Comfort/Palliative Care Urinary Catheter Date of Insertion: 06/28/21 Urinary Catheter Time of Insertion: 08:25 Discharge Data Data Completed and Pending: Completed Studies During Hospitalization Category Date Time Status CT angio chest PE protcl [id number] Urge nt Cat Scan 06/27/21 04:27 Completed XR chest 1V barbra ble [id number] Routine Exams 07/01/21 07:00 Completed XR chest 1V barbra ble [id number] Routine Exams 07/02/21 20:42 Completed XR chest 1V barbra ble [id number] Routine Exams 07/03/21 08:58 Completed XR chest 1V barbra ble [id number] Urgent Exams 06/27/21 03:36 Completed Pending at discharge Category Date Time Status Complete Blood Co unt w/Auto AM LABS Lab 07/05/21 04:00 Ordered Complete Blood Co unt w/Auto AM LABS Lab 07/06/21 04:00 Ordered Comprehensive Met abolic Panel AM LA BS Lab 07/05/21 04:00 Ordered Comprehensive Met abolic Panel AM LA BS Lab 07/06/21 04:00 Ordered NT Pro B Type Opal riuretic Pept QAM Lab 07/05/21 06:00 Ordered NT Pro B Type Opal riuretic Pept QAM Lab 07/06/21 06:00 Ordered Labs from last 24 hours 07/04/21 07/04/21 07/04/21 07:32 06:26 05:15 WBC RBC Hgb Hct MCV MCH MCHC RDW Plt Count MPV Neut % (Auto) Lymph % (Auto) Reynolds % (Auto) Eos % (Auto) Baso % (Auto) Neut # (Auto) Lymph # (Auto) Reynolds # (Auto) Eos # (Auto) Baso # (Auto) Nucleated RBC % (a uto) Nucleated RBCs # Sodium 137 Potassium 3.7 Chloride 101 Carbon Dioxide 23 Anion Gap 16.7 BUN 35 H Creatinine 1.5 H GFR Calculation Not Reportable Glucose 98 POC Glucose 99 114 H Calculated Osmolal ity 292 Calcium 8.8 Total Bilirubin 1.0 AST 18 ALT 13 Alkaline Phosphata se 62 NT-Pro-B Natriuret Pep 82370 H Total Protein 5.7 L Albumin 3.2 L Globulin 2.5 07/04/21 07/03/21 07/03/21 05:15 20:14 16:56 WBC 13.1 H RBC 3.96 L Hgb 11.0 L Hct 35.4 L MCV 89.4 MCH 27.8 L MCHC 31.1 RDW 18.2 H Plt Count 191 MPV 12.8 H Neut % (Auto) 75.7 Lymph % (Auto) 13.9 Reynolds % (Auto) 8.4 Eos % (Auto) 1.4 Baso % (Auto) 0.1 Neut # (Auto) 9.93 H Lymph # (Auto) 1.8 Reynolds # (Auto) 1.1 H Eos # (Auto) 0.2 Baso # (Auto) 0.0 Nucleated RBC % (a uto) 0 Nucleated RBCs # 0.0 Sodium Potassium Chloride Carbon Dioxide Anion Gap BUN Creatinine GFR Calculation Glucose POC Glucose 176 H 176 H Calculated Osmolal ity Calcium Total Bilirubin AST ALT Alkaline Phosphata se NT-Pro-B Natriuret Pep Total Protein Albumin Globulin Vitals: Last Vital Signs Temp 97.3 F L 07/04/21 10:58 Pulse 80 07/04/21 11:21 Resp 20 H 07/04/21 11:17 BP 112/71 07/04/21 10:58 Pulse Ox 92 07/04/21 11:17 Discharge Plan Discharge Patient Disposition: Hospice - Home Condition: Stable Prescriptions: New Xarelto 10 mg Tablet 20 mg PO DAILY 30 Days Qty: 30 RF: 0 potassium chloride [Klor-Con M20] 20 mEq Tablet,Er Particles/Crystals 40 meq PO DAILY 30 Days Qty: 30 RF: 0 metoprolol tartrate 25 mg Tablet 25 mg PO BID@0900,2100 30 Days Qty: 30 RF: 0 quetiapine 25 mg Tablet 50 mg PO BID 30 Days Qty: 120 RF: 0 amoxicillin-pot clavulanate 875-125 mg Tablet 1 tab PO BID 5 Days Qty: 10 RF: 0 aspirin 81 mg Tablet,Delayed Release (Dr/Ec) 81 mg PO DAILY 30 Days Qty: 30 RF: 0 furosemide [Lasix] 40 mg tablet 60 mg PO DAILY 30 Days Qty: 60 RF: 0 Continued albuterol sulfate [ProAir HFA] 90 mcg/actuation HFA aerosol inhaler 2 puff INHALATION QID PRN (Reason: Shortness Of Breath) RF: 0 budesonide-formoterol [Symbicort] 160-4.5 mcg/actuation HFA aerosol inhaler 2 puff INHALATION BID PRN (Reason: see pharmacy comments) RF: 0 simvastatin 40 mg tablet 20 mg PO DAILY RF: 0 aspirin [Adult Aspirin Regimen] 81 mg tablet,delayed release (DR/EC) 81 mg PO QAM RF: 0 Zyrtec 10 mg Tablet 10 mg PO DAILY RF: 0 metformin 1,000 mg Tablet 500 mg PO BID RF: 0 Discontinued metoprolol tartrate 50 mg tablet 25 mg PO BID RF: 0 nifedipine 30 mg tablet extended release 30 mg PO DAILY RF: 0 furosemide 40 mg tablet 40 mg PO DAILY RF: 0 multivitamin Tablet 1 tab PO DAILY PRN (Reason: unknown) RF: 0 lisinopril 40 mg Tablet 20 mg PO DAILY RF: 0 Klor-Con 10 20 mEq tablet extended release 20 meq PO DAILY RF: 0 rivaroxaban 20 mg tablet 20 mg PO DAILY RF: 0 Discharge Orders: Discharge Order (Routine); Ordered 07/04/21 Ordered By: Alexandro Stevens Referrals: Bill Corley DO [Primary Care Provider] - Discharge Diet: Regular Discharge Activity: Resume usual activity Activity Restrictions/Additional Instructions: -Discharging on home hospice Discharge Attestations Time Spent in Discharge Care*: less than 30 min Status at Discharge: Cognitive status at discharge: cognitively intact, Behavioral status at discharge: cooperative, Quality Metrics Clinical Quality Measures During this hospital stay, did patient experience: None Coding Level of Care Code Acute Chg FW DC note Exam Detailed Diagnoses Acute respiratory failure J96.01 Respiratory failure complication: hypoxia Heart failure I50.9 Pneumonia J18.9 Chronic atrial fibrillation I48.20
--- NOTE | 2021-07-04 14:58 | PM.PN ---
Subjective Subjective: Interval history: Patient was seen this morning, he tells me is doing better, no fevers, chills, nausea, vomiting, chest pain, is still adamant about going home, I advised him that we will try nonrebreather with ox he pended in order to get him home today, he tells me that he did not call his sisters to arrange for them to have him at home, he tells me that we will have to arrange for his transport Vitals/I&O/Wt Last Vital Signs Temp 97.3 F L 07/04/21 10:58 Pulse 80 07/04/21 11:21 Resp 20 H 07/04/21 11:17 BP 112/71 07/04/21 10:58 Pulse Ox 92 07/04/21 11:17 07/03/21 07/04/21 07/04/21 22:59 06:59 14:59 Intake Total 410 / 1060 600 / 1660 320 / 320 Output Total 1200 / 1200 1900 / 1900 Balance -790 / -140 600 / 460 -1580 / -1580 Physical Exam Const: COMMON NORMALS: no acute distress GENERAL APPEARANCE: frail appearing ORIENTATION/CONSCIOUSNESS: Yes awake, Yes oriented to person, Yes oriented to place and Yes oriented to time Cardio: COMMON NORMALS: regular rate, regular rhythm, S1 normal heart sound present and S2 normal heart sound present RATE: regular rate RHYTHM: regular rhythm HEART SOUNDS: S1 normal heart sound present and S2 normal heart sound present GI: COMMON NORMALS: Normal to inspection, nondistended, normoactive bowel sounds present, Soft to palpation and non-tender PALPATION: Yes Soft to palpation Extremity: COMMON NORMALS: no pedal edema Neuro: SENSORIUM/ORIENTATION: Yes oriented to person, Yes oriented to place and Yes oriented to time Urinary Catheter Management^: Alvarado: Cath Placed During This Visit: yes Reason for Continuing Indwelling Catheter: Hospice/Comfort/Palliative Care Urinary Catheter Date of Insertion: 06/28/21 Urinary Catheter Time of Insertion: 08:25 Data : 07/04/21 05:15 07/04/21 05:15 A&P Assessment and plan (1) Acute respiratory failure: Acute hypoxic respiratory failure secondary to biventricular heart failure, decompensated HFpEF as well as RHF and Severe Pulmonary HTN Cardiac echocardiogram on February 2021 1-Normal left ventricular cavity size. Normal left ventricular systolic function. Left ventricular ejection fraction is estimated at 55 %. Flattened septum in diastole consistent with right ventricle volume overload. 2-Severely increased right ventricular size. Moderately decreased right ventricular systolic function. Moderate pulmonary hypertension, RVSP 37.6 mmHg. 3-Moderately increased right atrial size. 4-Severely thickened mitral valve. Severe mitral annular calcification. No mitral valve stenosis. No mitral valve regurgitation. 5-Severe aortic valve calcification. Mild aortic valve stenosis, mean gradient 4.5 mmHg, SRIKANTH 2.1 cm squared. No aortic valve regurgitation. 6-Severe tricuspid valve regurgitatio. 7-There is no pericardial effusion. 8-When compared to the prior echocardiogram dated April 22, 2020 right ventricle is severely enlarged with moderate to severely depressed function. CT angiogram of the chest on admission showed 1. There is no evidence for pulmonary emboli. 2. Stable calcified pleural plaques present bilaterally. 3. Small right pleural effusion 4. Patchy opacities superimposed over the right pleural effusion compatible with atelectasis. A right basilar infiltrate and pneumonia cannot be entirely excluded. 5. Stable mildly irregular ground-glass opacity in the left upper lobe measuring 14 mm may represent chronic parenchymal scarring. Follow-up chest CT is suggested at 3 years and 5 years.(Reference: Yani) 6. Benign cyst in the upper pole of right kidney measuring 1.7 cm. No further workup needed. 7. Small volume ascites seen adjacent to the liver and spleen and within the lesser sac. Rapid Covid, Covid PCR negative Has bilateral pleural effusions seen on chest x-ray Plan Patient wants to proceed to hospice CODE STATUS has been changed to DNR/DNI Still on 35 L 75% FiO2, will do my best to try to decrease his oxygen requirements, so I can as best as I can get him home in a safe fashion, but there is a significant possibility that he might require significant amount of oxygen that cannot be duplicated at home or on transport that is associated with morbidity and mortality, patient and family wish understanding, all questions answered, agreed to proceed Continue Lasix 60 mg IV push daily, 1 dose of metolazone 20 mg in the evening, creatinine 1.5, potassium 4.2, - 4 L Try oxypendant, with nonrebreather Intake output charting Daily weight k>4, mg >2 Nifedipine 30 mg p.o. daily ( on hold ) Imdur on hold Metoprolol 25 mg twice daily Switch to Augmentin Currently on high flow nasal cannula, wean as tolerated, BiPAP as needed Status: Acute Qualifiers: Respiratory failure complication: hypoxia Qualified Code(s): J96.01 - Acute respiratory failure with hypoxia (2) Heart failure: Plan as above Status: Acute (3) Pneumonia: Status: Acute (4) Chronic atrial fibrillation: On metoprolol, Xarelto. Status: Acute Additional A&P Information History of diabetes. Continue sliding scale insulin. Coronary artery disease. 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
[2021-07-04 17:22] LABS: Glucose Point of Care 176 mg/dL (70-110)
[2021-07-04] MEDS: FUROsemide 10 mg/mL SDV 2mL 20 MG IVP (17:31)
[2021-07-04] MEDS: atorvastatin 40 mg Tablet PO (22:04)
[2021-07-04 22:08] LABS: Glucose Point of Care 198 mg/dL (70-110)
[2021-07-04] MEDS: LORazepam 2 mg/mL INJ 1 mL 0.5 MG IVP (22:12)
[2021-07-04] MEDS: insulin lispro 100 unit/1 mL SUBCUT (23:49)
[2021-07-04 23:52] LABS: Glucose Point of Care 179 mg/dL (70-110)
[2021-07-05] VITALS (10 sets, daily range): BP systolic 93–131; BP diastolic 52–85; PULSE 69–98; RESP 15–24; TEMP 36.3–37.2; O2SAT 90–100
[2021-07-05] MEDS: ipratropium-albuterol 3 mL Neb INHALATION ×4 (03:55→20:00)
[2021-07-05 06:07] LABS: Eosinophils % 0.2 %; Hematocrit 36.4 % (42.0-52.0); Hemoglobin 11.3 g/dL (11.7-16.6); Lymphocytes # 0.9 10^3/uL (0.8-4.8); Lymphocytes % 8.3 %; Mean Corpuscular Volume 90.3 fl (80-94); Mean Platelet Volume 13.3 fL (7.4-10.4); Monocytes # 0.7 10^3/uL (0.2-0.9); Monocytes % 6.7 %; Neutrophils # 9.24 10^3/uL (1.8-7.7); Neutrophils % 84.2 %; Nucleated Red Blood Cells % 0 %; Platelet Count 214 10^3/cmm (130-400); Red Blood Count 4.03 10^6/uL (4.1-5.3); Red Cell Distribution Width 18.2 % (12.1-15.1)
[2021-07-05 06:40] LABS: Alanine Aminotransferase 13 U/L (0-41); Albumin Level 3.3 g/dL (3.5-5.2); Alkaline Phosphatase 62 IU/L (40-130); Anion Gap 12.7 (5-19); Aspartate Amino Transferase 18 U/L (0-40); Blood Urea Nitrogen 36 mg/dL (8-23); Carbon Dioxide 27 mmol/L (22-29); Chloride 98 mmol/L (98-107); Globulin 2.4 g/dL (1.3-4.6); Glucose 122 mg/dL (65-115); NT Pro B Type Natriuretic Pept 25063 pg/mL (0-450); Osmolality Calculated 288 mOsm/kg (285-295); Potassium 3.7 mmol/L (3.5-5.1); Sodium 134 mmol/L (136-145); Total Protein 5.7 g/dL (6.6-8.7)
[2021-07-05 06:53] LABS: Glucose Point of Care 132 mg/dL (70-110)
[2021-07-05] MEDS: predniSONE 20 mg Tablet 40 MG PO (07:54)
[2021-07-05] MEDS: potassium chloride ER 20 mEq Tablet 40 MEQ PO ×2 (07:54→17:23)
[2021-07-05] MEDS: quetiapine 25 mg Tablet 50 MG PO ×2 (07:54→17:23)
[2021-07-05] MEDS: amoxicillin-clav 875-125 mg Tablet 1 TAB PO ×2 (07:54→17:23)
[2021-07-05] MEDS: rivaroxaban 10 mg Tablet 20 MG PO (07:55)
[2021-07-05] MEDS: aspirin 81 mg EC Tablet PO (07:55)
[2021-07-05] MEDS: midodrine 5 mg TABLET 10 MG PO ×3 (10:18→20:47)
[2021-07-05] MEDS: FUROsemide 10 mg/mL SDV 10mL 60 MG IVP (10:18)
[2021-07-05] MEDS: metOLazone 5 MG Tablet 10 MG PO (10:19)
[2021-07-05 11:07] LABS: Glucose Point of Care 147 mg/dL (70-110)
[2021-07-05] MEDS: benzonatate 100 mg Capsule PO (12:44)
--- NOTE | 2021-07-05 14:15 | P.PN_ITS ---
Subjective Subjective: Interval history: This morning patient was seen, currently he is on the 15 L, nonrebreather, he tells me that he did try to get up into a chair, but felt weak, the plan was to try to discharge him home on home hospice, to his sisters house, however hospice was having an issue as no one could be with him for 24 hours, patient tells me that he is in a truck to his sisters today, try to get hospice arranged at one of their houses, he tells me that he continues to have a good appetite, no nausea, no vomiting, no chest pain Vitals/I&O/Wt Last Vital Signs Temp 97.7 F 07/05/21 11:00 Pulse 93 07/05/21 11:53 Resp 20 H 07/05/21 11:53 BP 115/79 07/05/21 11:00 Pulse Ox 93 07/05/21 11:53 07/04/21 07/05/21 07/05/21 22:59 06:59 14:59 Intake Total 120 / 440 840 / 1280 120 / 120 Output Total 1200 / 3100 Balance 120 / -1460 -360 / -1820 120 / 120 Physical Exam Const: COMMON NORMALS: no acute distress and patient oriented x3 GENERAL APPEARANCE: frail appearing Resp: COMMON NORMALS: normal respiratory effort, No retractions, No use of accessory muscles and clear to auscultation bilaterally AUSCULTATION: clear to auscultation bilaterally Cardio: COMMON NORMALS: regular rate, regular rhythm, S1 normal heart sound present and S2 normal heart sound present RATE: regular rate RHYTHM: regular rhythm HEART SOUNDS: S1 normal heart sound present and S2 normal heart sound present GI: COMMON NORMALS: Normal to inspection, nondistended, normoactive bowel sounds present, Soft to palpation and non-tender PALPATION: Yes Soft to palpation Extremity: COMMON NORMALS: no pedal edema Neuro: COMMON NORMALS: patient oriented x3 Psych: COMMON NORMALS: mental status grossly normal Urinary Catheter Management^: Alvarado: Cath Placed During This Visit: yes Reason for Continuing Indwelling Catheter: Hospice/Comfort/Palliative Care Urinary Catheter Date of Insertion: 06/28/21 Urinary Catheter Time of Insertion: 08:25 Data : 07/05/21 05:34 07/05/21 05:34 A&P Assessment and plan (1) Acute respiratory failure: Acute hypoxic respiratory failure secondary to biventricular heart failure, decompensated HFpEF as well as RHF and Severe Pulmonary HTN Cardiac echocardiogram on February 2021 1-Normal left ventricular cavity size. Normal left ventricular systolic function. Left ventricular ejection fraction is estimated at 55 %. Flattened septum in diastole consistent with right ventricle volume overload. 2-Severely increased right ventricular size. Moderately decreased right ventricular systolic function. Moderate pulmonary hypertension, RVSP 37.6 mmHg. 3-Moderately increased right atrial size. 4-Severely thickened mitral valve. Severe mitral annular calcification. No mitral valve stenosis. No mitral valve regurgitation. 5-Severe aortic valve calcification. Mild aortic valve stenosis, mean gradient 4.5 mmHg, SRIKANTH 2.1 cm squared. No aortic valve regurgitation. 6-Severe tricuspid valve regurgitatio. 7-There is no pericardial effusion. 8-When compared to the prior echocardiogram dated April 22, 2020 right ventricle is severely enlarged with moderate to severely depressed function. CT angiogram of the chest on admission showed 1. There is no evidence for pulmonary emboli. 2. Stable calcified pleural plaques present bilaterally. 3. Small right pleural effusion 4. Patchy opacities superimposed over the right pleural effusion compatible with atelectasis. A right basilar infiltrate and pneumonia cannot be entirely excluded. 5. Stable mildly irregular ground-glass opacity in the left upper lobe measuring 14 mm may represent chronic parenchymal scarring. Follow-up chest CT is suggested at 3 years and 5 years.(Reference: Yani) 6. Benign cyst in the upper pole of right kidney measuring 1.7 cm. No further workup needed. 7. Small volume ascites seen adjacent to the liver and spleen and within the lesser sac. Rapid Covid, Covid PCR negative Has bilateral pleural effusions seen on chest x-ray Plan Patient wants to proceed to hospice Will try to place to home hospice, patient tells me that he can talk to his sisters, case management informed CODE STATUS has been changed to DNR/DNI I have gone his oxygen requirements down to 15 L nonrebreather will do my best to try to decrease his oxygen requirements, so I can as best as I can get him home in a safe fashion, but there is a significant possibility that he might require significant amount of oxygen that cannot be duplicated at home or on transport that is associated with morbidity and mortality, patient and family wish understanding, all questions answered, agreed to proceed Continue Lasix 60 mg IV push daily, 1 dose of metolazone 20 mg in the evening, creatinine 1.4, potassium 3.7, -4.3 L -Will add midodrine today to aid in diuresis, avoid hypotension Try oxypendant, with nonrebreather Intake output charting Daily weight k>4, mg >2 Nifedipine 30 mg p.o. daily ( on hold ) Imdur on hold Metoprolol 25 mg twice daily Switch to Augmentin Currently on high flow nasal cannula, wean as tolerated, BiPAP as needed Status: Acute Qualifiers: Respiratory failure complication: hypoxia Qualified Code(s): J96.01 - Acute respiratory failure with hypoxia (2) Heart failure: Plan as above Status: Acute (3) Pneumonia: Status: Acute (4) Chronic atrial fibrillation: On metoprolol, Xarelto. Status: Acute Additional A&P Information History of diabetes. Continue sliding scale insulin. Coronary artery disease. 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
[2021-07-05] MEDS: LORazepam 2 mg/mL INJ 1 mL 0.5 MG IVP (14:50)
[2021-07-05 17:05] LABS: Glucose Point of Care 167 mg/dL (70-110)
[2021-07-05] MEDS: insulin lispro 100 unit/1 mL SUBCUT ×2 (17:59→20:47)
[2021-07-05] MEDS: FUROsemide 10 mg/mL SDV 2mL 20 MG IVP (18:00)
[2021-07-05 20:16] LABS: Glucose Point of Care 172 mg/dL (70-110)
[2021-07-05] MEDS: atorvastatin 40 mg Tablet PO (20:44)
[2021-07-05] MEDS: metoprolol tartrate 25 mg Tablet PO (20:46)
[2021-07-06] VITALS (13 sets, daily range): BP systolic 94–128; BP diastolic 56–85; PULSE 67–91; RESP 16–20; TEMP 36.3–36.7; O2SAT 89–95
[2021-07-06] MEDS: ipratropium-albuterol 3 mL Neb INHALATION ×5 (00:16→20:12)
[2021-07-06 06:05] LABS: Basophils % 0.1 %; Eosinophils % 0.1 %; Hematocrit 35.8 % (42.0-52.0); Hemoglobin 11.2 g/dL (11.7-16.6); Lymphocytes # 0.9 10^3/uL (0.8-4.8); Lymphocytes % 8.1 %; Mean Corpuscular HGB Conc 31.3 g/dL (30.0-36.0); Mean Corpuscular Hemoglobin 27.7 pg (28.0-34.0); Mean Corpuscular Volume 88.4 fl (80-94); Monocytes # 0.7 10^3/uL (0.2-0.9); Monocytes % 5.8 %; Neutrophils # 9.65 10^3/uL (1.8-7.7); Neutrophils % 85.4 %; Nucleated Red Blood Cells % 0 %; Platelet Count 223 10^3/cmm (130-400); Red Blood Count 4.05 10^6/uL (4.1-5.3); Red Cell Distribution Width 17.8 % (12.1-15.1); White Blood Count 11.3 10^3/uL (4.0-10.0)
[2021-07-06 06:25] LABS: Glucose Point of Care 171 mg/dL (70-110)
[2021-07-06 06:49] LABS: Alanine Aminotransferase 13 U/L (0-41); Albumin Level 3.4 g/dL (3.5-5.2); Alkaline Phosphatase 62 IU/L (40-130); Anion Gap 14.5 (5-19); Aspartate Amino Transferase 20 U/L (0-40); Blood Urea Nitrogen 37 mg/dL (8-23); Carbon Dioxide 29 mmol/L (22-29); Chloride 96 mmol/L (98-107); Globulin 2.5 g/dL (1.3-4.6); Glucose 150 mg/dL (65-115); Magnesium 2.1 mg/dL (1.7-2.3); NT Pro B Type Natriuretic Pept 18334 pg/mL (0-450); Osmolality Calculated 294 mOsm/kg (285-295); Potassium 3.5 mmol/L (3.5-5.1); Sodium 136 mmol/L (136-145); Total Bilirubin 1.1 mg/dL (0.15-1.2); Total Protein 5.9 g/dL (6.6-8.7)
[2021-07-06] MEDS: aspirin 81 mg EC Tablet PO (08:03)
[2021-07-06] MEDS: predniSONE 20 mg Tablet 40 MG PO (08:03)
[2021-07-06] MEDS: midodrine 5 mg TABLET 10 MG PO ×3 (08:03→20:36)
[2021-07-06] MEDS: quetiapine 25 mg Tablet 50 MG PO ×2 (08:03→16:25)
[2021-07-06] MEDS: amoxicillin-clav 875-125 mg Tablet 1 TAB PO ×2 (08:03→16:25)
[2021-07-06] MEDS: potassium chloride ER 20 mEq Tablet 40 MEQ PO (08:04)
[2021-07-06] MEDS: metoprolol tartrate 25 mg Tablet PO ×2 (08:04→20:36)
[2021-07-06] MEDS: rivaroxaban 10 mg Tablet 20 MG PO (08:04)
[2021-07-06] MEDS: insulin lispro 100 unit/1 mL SUBCUT ×3 (08:09→17:32)
[2021-07-06 11:40] LABS: Glucose Point of Care 152 mg/dL (70-110)
--- NOTE | 2021-07-06 12:26 | PC.SOCIAL ---
IMM updated with patient. Copy pg 2 provided. Initialled, dated, timed, and placed in chart.
[2021-07-06 17:02] LABS: Glucose Point of Care 208 mg/dL (70-110)
--- NOTE | 2021-07-06 17:16 | P.PN_ITS ---
Subjective Subjective: Interval history: On 15 L, 100% FiO2 on high flow cannula. Denies chest pain or pressure. Family states he has been feeling like ice cream, asking if it is okay for him to have it. Discussed with them and patient, with his goals of care being for hospice, emphasis on comfort, regular diet, meals, snacks and okay anytime he prefers to without restriction. Vitals/I&O/Wt Last Vital Signs Temp 97.9 F 07/06/21 15:00 Pulse 71 07/06/21 15:32 Resp 16 07/06/21 15:32 BP 95/56 07/06/21 15:00 Pulse Ox 91 07/06/21 15:32 07/06/21 07/06/21 07/06/21 06:59 14:59 22:59 Intake Total 360 / 360 Output Total 1000 / 3100 Balance -1000 / -2620 360 / 360 Physical Exam Narrative: EXAM NARRATIVE: Sister and family at bedside Const: COMMON NORMALS: no acute distress and patient oriented x3 GENERAL APPEARANCE: comfortable and frail appearing OTHER: High flow nasal cannula on HENMT: COMMON NORMALS: oropharynx normal Neck/C-Spine: GENERAL: Yes JVD Resp: AUSCULTATION: diminished lung sounds Cardio: COMMON NORMALS: regular rhythm, S1 normal heart sound present, S2 normal heart sound present and No murmurs present (Cardio) RHYTHM: regular rhythm HEART SOUNDS: S1 normal heart sound present and S2 normal heart sound present GI: COMMON NORMALS: Normal to inspection, nondistended, normoactive bowel sounds present, Soft to palpation and non-tender PALPATION: Yes Soft to palpation Extremity: COMMON NORMALS: no joint enlargement and no pedal edema Neuro: COMMON NORMALS: patient oriented x3 and moves all extremities Skin: COMMON NORMALS: no rashes or lesions noted GENERAL SKIN EXAM: no r ashes or lesions noted Urinary Catheter Management^: Alvarado: Cath Placed During This Visit: yes Reason for Continuing Indwelling Catheter: Hospice/Comfort/Palliative Care Urinary Catheter Date of Insertion: 06/28/21 Urinary Catheter Time of Insertion: 08:25 Data : 07/06/21 05:05 07/06/21 05:05 A&P Assessment and plan (1) Acute respiratory failure: Hospice care arrangements underway. He would like to ideally return home, however, this is not possible. He otherwise request for a private room. Family are working with case management for placement. Severe decompensated pulmonary hypertension, biventricular CHF. Cannot rule out possible superimposed infection. Held additional Lasix for now due to low blood pressure. Status: Acute Qualifiers: Respiratory failure complication: hypoxia Qualified Code(s): J96.01 - Acute respiratory failure with hypoxia (2) Heart failure: Plan as above Status: Acute (3) Pneumonia: Status: Acute (4) Chronic atrial fibrillation: On metoprolol, Xarelto. Status: Acute Additional A&P Information History of diabetes. Continue sliding scale insulin. Coronary artery disease. Continue beta-golden, statin Multiple other medical problems as outlined in past medical history History of pleural classifications, status post partial resection of left lower lobe Atrial fibrillation on Xarelto Full code He is on Xarelto which will suffice for DVT prophylaxis Attestations Medical Necessity Statement*: Continue admission for disposition planning and arrangements for hospice care given hypoxic respiratory failure with severe de compensated pulmonary hypertension, heart failure with acute on chronic hypoxic respiratory failure. Coding Level of Care Code Acute Demo Coordinator for [facility] Fwd Exam Comprehensive Diagnoses Acute respiratory failure J96.01 Respiratory failure complication: hypoxia Heart failure I50.9 Pneumonia J18.9 Chronic atrial fibrillation I48.20
[2021-07-06] MEDS: atorvastatin 40 mg Tablet PO (20:36)
[2021-07-06 20:56] LABS: Glucose Point of Care 124 mg/dL (70-110)
[2021-07-07] VITALS (14 sets, daily range): BP systolic 88–119; BP diastolic 62–75; PULSE 66–89; RESP 16–19; TEMP 36.2–36.9; O2SAT 87–94
[2021-07-07] MEDS: ipratropium-albuterol 3 mL Neb INHALATION ×5 (03:10→20:13)
[2021-07-07 06:36] LABS: Glucose Point of Care 93 mg/dL (70-110)
[2021-07-07] MEDS: midodrine 5 mg TABLET 10 MG PO ×3 (09:39→21:10)
[2021-07-07] MEDS: aspirin 81 mg EC Tablet PO (09:39)
[2021-07-07] MEDS: predniSONE 20 mg Tablet 40 MG PO (09:39)
[2021-07-07] MEDS: rivaroxaban 10 mg Tablet 20 MG PO (09:39)
[2021-07-07] MEDS: amoxicillin-clav 875-125 mg Tablet 1 TAB PO ×2 (09:39→17:08)
[2021-07-07] MEDS: potassium chloride ER 20 mEq Tablet 40 MEQ PO (09:39)
[2021-07-07] MEDS: quetiapine 25 mg Tablet 50 MG PO ×2 (09:40→17:08)
[2021-07-07] MEDS: metoprolol tartrate 25 mg Tablet PO ×2 (09:43→21:13)
[2021-07-07 11:30] LABS: Glucose Point of Care 131 mg/dL (70-110)
[2021-07-07] MEDS: levoFLOXacin 750 mg Tablet PO (17:08)
[2021-07-07 17:10] LABS: Glucose Point of Care 188 mg/dL (70-110)
[2021-07-07] MEDS: insulin lispro 100 unit/1 mL SUBCUT ×2 (18:21→21:14)
--- NOTE | 2021-07-07 18:40 | PM.PN ---
Subjective Subjective: Interval history: Not doing great. About the same. Vitals/I&O/Wt Last Vital Signs Temp 97.5 F L 07/07/21 15:58 Pulse 73 07/07/21 16:08 Resp 16 07/07/21 16:03 BP 94/64 07/07/21 15:58 Pulse Ox 91 07/07/21 16:03 07/07/21 07/07/21 07/07/21 06:59 14:59 22:59 Intake Total 575 / 575 Output Total 350 / 950 600 / 600 Balance -350 / -470 575 / 575 -600 / -25 Physical Exam Narrative: EXAM NARRATIVE: Sister and family at bedside Const: COMMON NORMALS: no acute distress, patient oriented x3 and alert GENERAL APPEARANCE: frail appearing ORIENTATION/CONSCIOUSNESS: Yes awake OTHER: High flow nasal cannula on HENMT: COMMON NORMALS: oropharynx normal Neck/C-Spine: GENERAL: Yes JVD Resp: AUSCULTATION: diminished lung sounds Cardio: COMMON NORMALS: regular rhythm, S1 normal heart sound present, S2 normal heart sound present and No murmurs present (Cardio) RHYTHM: regular rhythm HEART SOUNDS: S1 normal heart sound present and S2 normal heart sound present GI: COMMON NORMALS: Normal to inspection, nondistended, normoactive bowel sounds present, Soft to palpation and non-tender PALPATION: Yes Soft to palpation Extremity: COMMON NORMALS: no joint enlargement and no pedal edema Neuro: COMMON NORMALS: patient oriented x3 and moves all extremities SENSORIUM/ORIENTATION: Yes alert Skin: COMMON NORMALS: no rashes or lesions noted GENERAL SKIN EXAM: no rashes or lesions noted Urinary Catheter Management^: Alvarado: Cath Placed During This Visit: yes Reason for Continuing Indwelling Catheter: Hospice/Comfort/Palliative Care Urinary Catheter Date of Insertion: 06/28/21 Urinary Catheter Time of Insertion: 08:25 Data : 07/06/21 05:05 07/06/21 05:05 A&P Assessment and plan (1) Acute respiratory failure: He is further considering his goals of care. If something could be done he certainly would pursue it to allow him to return home. He is sure he would not want to travel to an LTAC and stay there away from his family, however. At this time consideration is being given to hospice care, although they cannot accommodate his current oxygen requirement. Consideration is also being given to return home with a hired caregiver. In the meantime we will explore further whether there is anything else we could do for his pulmonary hypertension. Will request also for a new sputum for PCP. Antibiotics broadened somewhat with Levaquin course, although doubt superimposed bacterial infection without fever, minute white count, no sputum production, no consolidation on imaging, normal procalcitonin, etc. We will discuss with cardiology regarding left and right heart cath to confirm pressures and exclude left heart failure. Held additional Lasix for now due to low blood pressure. Status: Acute Qualifiers: Respiratory failure complication: hypoxia Qualified Code(s): J96.01 - Acute respiratory failure with hypoxia (2) Heart failure: Plan as above Status: Acute (3) Pneumonia: Status: Acute (4) Chronic atrial fibrillation: On metoprolol, Xarelto. Status: Acute Additional A&P Information History of diabetes. Continue sliding scale insulin. Coronary artery disease. Continue beta-golden, statin Multiple other medical problems as outlined in past medical history History of pleural classifications, status post partial resection of left lower lobe Atrial fibrillation on Xarelto Full code He is on Xarelto which will suffice for DVT prophylaxis Attestations Medical Necessity Statement*: Continue admission for cyst management of hypoxic respite failure with severe pulmonary hypertension. Coding Level of Care Code Acute Creative Services Coordinator for [facility] Diagnoses Acute respiratory failure J96.01 Respiratory failure complication: hypoxia Heart failure I50.9 Pneumonia J18.9 Chronic atrial fibrillation I48.20
[2021-07-07 20:58] LABS: Glucose Point of Care 191 mg/dL (70-110)
[2021-07-07] MEDS: atorvastatin 40 mg Tablet PO (21:13)
[2021-07-08] VITALS (12 sets, daily range): BP systolic 91–120; BP diastolic 59–82; PULSE 69–84; RESP 16–20; TEMP 36.3–36.6; O2SAT 87–95
[2021-07-08] MEDS: ipratropium-albuterol 3 mL Neb INHALATION ×5 (04:06→19:32)
--- NOTE | 2021-07-08 06:00 | XR_ITS ---
WS: [id number] XR chest 1V portable [id number] REASON FOR EXAM: Hypoxia FINDINGS: Extensive calcified which obscure underlying lung abnormalities. There appear to be infiltrates in both lower lobes and small effusions bilaterally The chest appears unchanged compared to 07/03/2021. XR/XR chest 1V portable [id number] IMPRESSION: Stable abnormal chest.
[2021-07-08 06:05] LABS: Basophils % 0.1 %; Hematocrit 36.4 % (42.0-52.0); Hemoglobin 11.5 g/dL (11.7-16.6); Lymphocytes % 8.7 %; Mean Corpuscular HGB Conc 31.6 g/dL (30.0-36.0); Mean Corpuscular Volume 88.6 fl (80-94); Mean Platelet Volume 12.7 fL (7.4-10.4); Monocytes # 0.7 10^3/uL (0.2-0.9); Monocytes % 6.2 %; Neutrophils # 9.19 10^3/uL (1.8-7.7); Neutrophils % 84.4 %; Nucleated Red Blood Cells % 0 %; Platelet Count 230 10^3/cmm (130-400); Red Blood Count 4.11 10^6/uL (4.1-5.3); Red Cell Distribution Width 17.6 % (12.1-15.1); White Blood Count 10.9 10^3/uL (4.0-10.0)
[2021-07-08 06:30] LABS: Alanine Aminotransferase 12 U/L (0-41); Albumin Level 3.3 g/dL (3.5-5.2); Alkaline Phosphatase 67 IU/L (40-130); Anion Gap 14.8 (5-19); Aspartate Amino Transferase 19 U/L (0-40); Blood Urea Nitrogen 45 mg/dL (8-23); Calcium 8.8 mg/dL (8.5-10.5); Carbon Dioxide 26 mmol/L (22-29); Chloride 99 mmol/L (98-107); Globulin 2.3 g/dL (1.3-4.6); Glucose 125 mg/dL (65-115); Magnesium 2.2 mg/dL (1.7-2.3); Osmolality Calculated 295 mOsm/kg (285-295); Potassium 3.8 mmol/L (3.5-5.1); Sodium 136 mmol/L (136-145); Total Bilirubin 1.3 mg/dL (0.15-1.2); Total Protein 5.6 g/dL (6.6-8.7)
[2021-07-08 07:13] LABS: Glucose Point of Care 135 mg/dL (70-110)
--- NOTE | 2021-07-08 09:21 | PC.SOCIAL ---
IMM Update pg 2 of IMM updated and reviewed w/ patient. Copy provided.
[2021-07-08] MEDS: metoprolol tartrate 25 mg Tablet PO ×2 (09:55→21:06)
[2021-07-08] MEDS: potassium chloride ER 20 mEq Tablet 40 MEQ PO (09:55)
[2021-07-08] MEDS: amoxicillin-clav 875-125 mg Tablet 1 TAB PO ×2 (09:55→18:17)
[2021-07-08] MEDS: quetiapine 25 mg Tablet 50 MG PO ×2 (09:55→18:18)
[2021-07-08] MEDS: midodrine 5 mg TABLET 10 MG PO ×3 (09:55→21:06)
[2021-07-08] MEDS: aspirin 81 mg EC Tablet PO (09:55)
[2021-07-08] MEDS: rivaroxaban 10 mg Tablet 20 MG PO (09:55)
[2021-07-08 11:55] LABS: Glucose Point of Care 164 mg/dL (70-110)
[2021-07-08] MEDS: insulin lispro 100 unit/1 mL SUBCUT ×2 (12:40→18:18)
--- NOTE | 2021-07-08 14:08 | PM.PN ---
Subjective Subjective: Interval history: No change today. Not feeling any worse, but also not any stronger/better. Discussed with him and his family consideration of possible left and right heart cath for pressure measurement, consideration of possible tadalafil therapy if left heart failure can be ruled out. Discussed that risk with procedure may be elevated, but me given chance of some improvement in case PT for inhibitor therapy may be safe for him. However, discussed with severity of his symptoms, treatment certainly would not be expected to provide extreme benefits, although may with time show some improvement in oxygen requirement. The other out of course remains to otherwise pursue hospice care. On careful consideration he and his family are agreeable to try to pursue L/R heart cath if possible. Vitals/I&O/Wt Last Vital Signs Temp 97.6 F 07/08/21 11:12 Pulse 74 07/08/21 11:12 Resp 19 H 07/08/21 11:12 BP 105/66 07/08/21 11:12 Pulse Ox 91 07/08/21 11:12 07/07/21 07/08/21 07/08/21 22:59 06:59 14:59 Intake Total 240 / 815 Output Total 600 / 600 325 / 925 Balance -600 / -25 -85 / -110 Physical Exam Narrative: EXAM NARRATIVE: Sister and family at bedside Const: COMMON NORMALS: no acute distress, patient oriented x3 and alert GENERAL APPEARANCE: frail appearing ORIENTATION/CONSCIOUSNESS: Yes awake OTHER: High flow nasal cannula on HENMT: COMMON NORMALS: oropharynx normal Neck/C-Spine: GENERAL: Yes JVD Resp: AUSCULTATION: diminished lung sounds Cardio: COMMON NORMALS: regular rhythm, S1 normal heart sound present, S2 normal heart sound present and No murmurs present (Cardio) RHYTHM: regular rhythm HEART SOUNDS: S1 normal heart sound present and S2 normal heart sound present GI: COMMON NORMALS: Normal to inspection, nondistended, normoactive bowel sounds present, Soft to palpation and non-tender PALPATION: Yes Soft to palpation Extremity: COMMON NORMALS: no joint enlargement and no pedal edema Neuro: COMMON NORMALS: patient oriented x3 and moves all extremities SENSORIUM/ORIENTATION: Yes alert Skin: COMMON NORMALS: no rashes or lesions noted GENERAL SKIN EXAM: no rashes or lesions noted Urinary Catheter Management^: Alvarado: Cath Placed During This Visit: yes Reason for Continuing Indwelling Catheter: Hospice/Comfort/Palliative Care Urinary Catheter Date of Insertion: 06/28/21 Urinary Catheter Time of Insertion: 08:25 Data : 07/08/21 05:20 07/08/21 05:20 A&P Assessment and plan (1) Acute respiratory failure: Appreciate cardiology assessment, further consideration of left/heart cath for pressure measurement to rule out left heart failure with consideration of possible additional therapy with tadalafil. He is interested in this possibility at this time, though understands the high risk given his degree of hypoxia, and likely limited reward of the intervention and subsequent possible treatment. Otherwise he is considering hospice care, possibly at home. In the meantime requested also induced sputum for PCP with RT. Antibiotics were broadened somewhat with Levaquin course, although doubt superimposed bacterial infection without fever, minute leukocytosis, no sputum production, no consolidation on imaging, normal procalcitonin, etc. Held additional Lasix for now due to low blood pressure and lack of improvement. Status: Acute Qualifiers: Respiratory failure complication: hypoxia Qualified Code(s): J96.01 - Acute respiratory failure with hypoxia (2) Heart failure: Plan as above Status: Acute (3) Pneumonia: Status: Acute (4) Chronic atrial fibrillation: On metoprolol, Xarelto. Status: Acute Additional A&P Information History of diabetes. Continue sliding scale insulin. Coronary artery disease. Continue beta-golden, statin Multiple other medical problems as outlined in past medical history History of pleural classifications, status post partial resection of left lower lobe Atrial fibrillation on Xarelto Full code He is on Xarelto which will suffice for DVT prophylaxis Attestations Medical Necessity Statement*: Continue admission for further arrangements for assessment with left and right heart cath. Coding Level of Care Code Acute Food Assembler Kitchen for [facility] Diagnoses Acute respiratory failure J96.01 Respiratory failure complication: hypoxia Heart failure I50.9 Pneumonia J18.9 Chronic atrial fibrillation I48.20
[2021-07-08 16:37] LABS: Glucose Point of Care 143 mg/dL (70-110)
[2021-07-08 20:15] LABS: Glucose Point of Care 112 mg/dL (70-110)
--- NOTE | 2021-07-08 20:54 | PC.NURSE ---
reported high reps 20 and low o2 87 to nurse
[2021-07-08] MEDS: atorvastatin 40 mg Tablet PO (21:05)
[2021-07-09] VITALS (14 sets, daily range): BP systolic 90–115; BP diastolic 61–75; PULSE 64–84; RESP 17–22; TEMP 36.4–37.1; O2SAT 87–97
[2021-07-09] MEDS: ipratropium-albuterol 3 mL Neb INHALATION ×7 (01:00→23:37)
[2021-07-09 05:57] LABS: Eosinophils # 0.2 10^3/uL (0.0-0.8); Eosinophils % 1.6 %; Hematocrit 36.4 % (42.0-52.0); Hemoglobin 11.1 g/dL (11.7-16.6); Lymphocytes # 1.4 10^3/uL (0.8-4.8); Lymphocytes % 9.1 %; Mean Corpuscular HGB Conc 30.5 g/dL (30.0-36.0); Mean Corpuscular Hemoglobin 26.9 pg (28.0-34.0); Mean Corpuscular Volume 88.3 fl (80-94); Mean Platelet Volume 13.1 fL (7.4-10.4); Monocytes # 1.2 10^3/uL (0.2-0.9); Monocytes % 7.6 %; Neutrophils # 12.47 10^3/uL (1.8-7.7); Neutrophils % 81.1 %; Nucleated Red Blood Cells % 0 %; Platelet Count 233 10^3/cmm (130-400); Red Blood Count 4.12 10^6/uL (4.1-5.3); Red Cell Distribution Width 17.5 % (12.1-15.1); White Blood Count 15.4 10^3/uL (4.0-10.0)
[2021-07-09 06:17] LABS: Alanine Aminotransferase 12 U/L (0-41); Albumin Level 3.2 g/dL (3.5-5.2); Alkaline Phosphatase 68 IU/L (40-130); Anion Gap 12.3 (5-19); Aspartate Amino Transferase 21 U/L (0-40); Blood Urea Nitrogen 42 mg/dL (8-23); Calcium 8.7 mg/dL (8.5-10.5); Carbon Dioxide 26 mmol/L (22-29); Chloride 101 mmol/L (98-107); Creatinine Clr Calc Pharmacy 44.5365; Globulin 2.1 g/dL (1.3-4.6); Glucose 80 mg/dL (65-115); Osmolality Calculated 291 mOsm/kg (285-295); Potassium 3.3 mmol/L (3.5-5.1); Sodium 136 mmol/L (136-145); Total Bilirubin 1.2 mg/dL (0.15-1.2); Total Protein 5.3 g/dL (6.6-8.7)
[2021-07-09 06:34] LABS: Glucose Point of Care 89 mg/dL (70-110)
[2021-07-09] MEDS: rivaroxaban 10 mg Tablet 20 MG PO (09:10)
[2021-07-09] MEDS: amoxicillin-clav 875-125 mg Tablet 1 TAB PO ×2 (09:10→17:33)
[2021-07-09] MEDS: aspirin 81 mg EC Tablet PO (09:10)
[2021-07-09] MEDS: quetiapine 25 mg Tablet 50 MG PO ×2 (09:11→17:33)
[2021-07-09] MEDS: midodrine 5 mg TABLET 10 MG PO ×3 (09:11→20:58)
[2021-07-09] MEDS: potassium chloride ER 20 mEq Tablet 40 MEQ PO (09:11)
[2021-07-09 10:46] LABS: Glucose Point of Care 125 mg/dL (70-110)
--- NOTE | 2021-07-09 11:02 | PM.CONSULT ---
Providers/Reason For Consult Consulting Physician/Specialty*: Zander Lion MD/ Cardiology Reason for Consult*: Assessment for right and left heart cath/pulmonary hypertension Requesting Physician: Dr Birch Attending Physician: Beck Birch Primary Care Provider: Bill Corley DO History of Present Illness History of Present Illness Renzo Bhakta is a 81 year old male with past medical history of severe pulmonary hypertension, right heart failure, chronic atrial fibrillation, severe tricuspid regurgitation presented to hospital with acute respiratory distress. He was diuresed and now O2 requirement has dropped to 15 liters. Pulmonology and medicine teams have requested right and left heart cath for assessment of left heart failure prior to starting tadalafil. Patient says he is feeling better now since getting admitted to the hospital. Review of Systems General: Reports: 10 or more systems reviewed and unremarkable except in HPI and below Const: Denies: fever(s) or chills Eyes: Denies: change in vision ENMT: Denies: throat pain Card: Reports: chest pain Resp: Reports: dyspnea and non-productive cough; Denies: productive cough GI: Denies: abdominal pain, nausea, vomiting, hematochezia or melena : Denies: flank pain Musc: Denies: neck pain Skin/Breast: Denies: rash Neuro: Denies: headache(s) Psych: Denies: anxiety or depression Endo: Denies: polyuria Peng/Lymph: Denies: easy bruising All/Imm: Denies: urticaria Meds/Allergies Home Medications and Allergies Home Medications Medication Instructions Recorded Confirmed Last Taken Type albuterol sulfate 90 mcg/actuation 2 puff INHALATION QID PRN 04/08/20 06/27/21 03/16/21 History aerosol inhaler aspirin 81 mg tablet,delayed 81 mg PO QAM 04/08/20 06/27/21 03/16/21 History release budesonide-formoterol HFA 160 2 puff INHALATION BID PRN 04/08/20 06/27/21 03/16/21 History mcg-4.5 mcg/actuation aerosol inhaler metoprolol tartrate 50 mg tablet 25 mg PO BID tab 04/08/20 06/27/21 03/16/21 History nifedipine 30 mg tablet,extended 30 mg PO DAILY 04/08/20 06/27/21 03/16/21 History release simvastatin 40 mg tablet 20 mg PO DAILY 04/08/20 06/27/21 03/15/21 History furosemide 40 mg tablet 40 mg PO DAILY tab 04/24/21 06/27/21 Unknown History cetirizine [Zyrtec] 10 mg PO DAILY 06/27/21 06/27/21 Unknown History lisinopril 20 mg PO DAILY 06/27/21 06/27/21 Unknown History metformin 500 mg PO BID 06/27/21 06/27/21 Unknown History multivitamin 1 tab PO DAILY PRN 06/27/21 06/27/21 Unknown History potassium chloride [Klor-Con 10] 20 meq PO DAILY 06/27/21 06/27/21 Unknown History rivaroxaban 20 mg PO DAILY 06/27/21 06/27/21 Unknown History Allergies Allergy/AdvReac Type Severity Reaction Status Date / Time No Known Allergies Allergy Verified 06/27/21 13:23 Current Medications Current Medications Generic Name Dose Route Start Last Admin Trade Name Freq PRN Reason Stop Dose Admin Acetaminophen 650 mg 06/27/21 08:49 07/03/21 21:20 Acetaminophen 325 Mg Tablet PO 650 mg Q6H PRN Administration Mild/Mod Pain Or Temp >/= 101 Albuterol/Ipratropium 3 ml 06/27/21 12:00 07/09/21 08:00 Ipratropium-Albuterol 3 Ml Neb INHALATION 3 ml Q4H.RESPIRATORY SUMMER Administration Amoxicillin/Clavulanate Potassium 1 tab 07/03/21 18:00 07/09/21 09:10 Amoxicillin-Clav 875-125 Mg Tablet PO 1 tab BID SUMMER Administration Protocol Aspirin 81 mg 06/27/21 09:00 07/09/21 09:10 Aspirin 81 Mg Ec Tablet PO 81 mg DAILY SUMMER Administration Atorvastatin Calcium 40 mg 06/27/21 21:00 07/08/21 21:05 Atorvastatin 40 Mg Tablet PO 40 mg BEDTIME SUMMER Administration Benzonatate 100 mg 07/05/21 11:56 07/05/21 12:44 Benzonatate 100 Mg Capsule PO 100 mg TID PRN Administration COUGH Insulin Human Lispro 0 unit 07/03/21 18:00 07/09/21 10:49 Insulin Lispro 100 Unit/1 Ml SUBCUT Not Given WM&BEDTIME SUMMER Protocol Lanolin 1 applic 06/30/21 04:32 06/30/21 11:14 Lanolin Oint 7 Gm TOPICAL 1 applic PRN PRN Administration DRYNESS Levofloxacin 750 mg 07/07/21 17:00 07/07/21 17:08 Levofloxacin 750 Mg Tablet PO 750 mg Q48H SUMMER Administration Protocol Metoprolol Tartrate 25 mg 06/30/21 07:20 07/09/21 09:11 Metoprolol Tartrate 25 Mg Tablet PO Not Given BID@0900,2100 SUMMER Midodrine 10 mg 07/05/21 09:50 07/09/21 09:11 Midodrine 5 Mg Tablet PO 10 mg TID SUMMER Administration Nifedipine 30 mg 06/27/21 09:00 06/29/21 12:41 Nifedipine Er (24 Hr) 30 Mg Tablet PO Not Given DAILY SUMMER Potassium Chloride 40 meq 06/29/21 10:30 07/09/21 09:11 Potassium Chloride Er 20 Meq Tablet PO 40 meq DAILY SUMMER Administration Quetiapine Fumarate 50 mg 07/02/21 18:00 07/09/21 09:11 Quetiapine 25 Mg Tablet PO 50 mg BID SUMMER Administration Rivaroxaban 20 mg 06/27/21 09:00 07/09/21 09:10 Rivaroxaban 10 Mg Tablet PO 20 mg DAILY SUMMER Administration Fluticasone/Salmeterol 1 puff 06/27/21 20:00 07/09/21 08:00 Fluticasone-Salmeterol 250-50 Diskus INHALATION 1 puff BID.RESPIRATORY SUMMER Administration PFSH Acute PFSH: Medical History Acute and chronic respiratory failure with hypoxia ROSLYN (acute kidney injury) Allergic rhinitis Atelectasis of left lung Atherosclerotic heart disease of [place] coronary artery with unspecified angina pectoris BPH (benign prostatic hyperplasia) Chronic atrial fibrillation Congestive heart failure Last echocardiogram demonstrated EF of 55%, severe tricuspid regurgitation, pulmonary artery pressure 37.6, mild aortic valve stenosis, right ventricular dysfunction COPD (chronic obstructive pulmonary disease) Dysplasia of prostate Essential (primary) hypertension Hyperlipidemia Respiratory failure Tinea unguium Tricuspid valve regurgitation Type 2 diabetes mellitus Surgical History History of lung surgery Hx of CABG Family History Mother CAD (coronary artery disease) Father CAD (coronary artery disease) Social History Alcohol intake: never Lives independently: Yes Household members: none Marital status: Single service: Yes Current occupational status: retired History of recent travel: No Current gender identity: Male Vitals/I&O/Wt Last Vital Signs Temp 98.7 F 07/09/21 07:26 Pulse 79 07/09/21 08:00 Resp 22 H 07/09/21 08:00 BP 101/74 07/09/21 07:26 Pulse Ox 90 07/09/21 08:00 07/08/21 07/09/21 07/09/21 22:59 06:59 14:59 Intake Total 120 / 120 240 / 360 480 / 480 Output Total 860 / 860 Balance 120 / 120 -620 / -500 480 / 480 Physical Exam Narrative: EXAM NARRATIVE: GENERAL: Patient is alert, awake and oriented x3. NECK: No jugular vein distension. HEENT: No cyanosis. No icterus. No pallor. HEART: Irregularly rate S1 and S2. No murmur, rub or gallop. LUNGS: Reduced breath sounds with bilateral lower lobe inspiratory crackles ABDOMEN: Non tender CENTRAL NERVOUS SYSTEM: Grossly nonfocal. EXTREMITIES: Lower extremities with 1+ edema bilaterally Urinary Catheter Management^: Alvarado: Cath Placed During This Visit: yes Reason for Continuing Indwelling Catheter: Other Urinary Catheter Date of Insertion: 06/28/21 Urinary Catheter Time of Insertion: 08:25 A&P Assessment and plan (1) Chronic atrial fibrillation: Status: Acute (2) Acute respiratory failure: Status: Acute Qualifiers: Respiratory failure complication: hypoxia Qualified Code(s): J96.01 - Acute respiratory failure with hypoxia (3) Hypoxemia: Status: Acute (4) Acute respiratory distress: Status: Acute (5) Tricuspid valve regurgitation: Status: Acute Qualifiers: Cardiac valve disease etiology: etiology unspecified Qualified Code(s): I07.1 - Rheumatic tricuspid insufficiency (6) Pulmonary HTN: Status: Acute (7) Type 2 diabetes mellitus: Status: Acute Qualifiers: Diabetes mellitus mcc insulin use: without petroleum terminal plant operator use (8) Hyperlipidemia: Status: Acute Qualifiers: Hyperlipidemia type: unspecified Qualified Code(s): E78.5 - Hyperlipidemia, unspecified (9) Essential (primary) hypertension: Status: Acute Patient has severe pulmonary hypertension history. Medicine and pulmonology teams want to rule out elevated left sided pressures before starting tadalafil. Given patient's high O2 requirement, performing left heart cath will be high risk. We will proceed with right heart cath that will be sufficient to know wedge pressure. I did discuss with the primary team, that the saturations will not be accurate, given his elevated O 2 use at 15 liters. Risks and benefits of the procedure discussed with the patient. He understand the risks and benefits and wants to proceed with the procedure. NPO past midnights Thank you for involving us with care of this patient. We will continue to follow. Please call with questions. Coding Level of Care Code Acute Ios Programmer for [facility] Diagnoses Chronic atrial fibrillation I48.20 Acute respiratory failure J96.01 Respiratory failure complication: hypoxia Hypoxemia R09.02 Acute respiratory distress R06.03 Tricuspid valve regurgitation I07.1 Cardiac valve disease etiology: etiology unspecified Pulmonary HTN I27.20 Type 2 diabetes mellitus E11.9 Diabetes mellitus petroleum terminal plant operator insulin use: without petroleum terminal plant operator use Hyperlipidemia E78.5 Hyperlipidemia type: unspecified Essential (primary) hypertension I10
[2021-07-09 16:24] LABS: Glucose Point of Care 119 mg/dL (70-110)
[2021-07-09] MEDS: potassium chloride ER 20 mEq Tablet PO (17:33)
[2021-07-09] MEDS: levoFLOXacin 750 mg Tablet PO (17:33)
--- NOTE | 2021-07-09 20:20 | P.PN_ITS ---
Subjective Subjective: Interval history: He has spoken with the due diligence coordinator today with regards to consideration of right and left heart cath. He wants to think on things for today. States has been sleeping quite a bit this morning. Denies chest pain or pressure. Vitals/I&O/Wt Last Vital Signs Temp 97.6 F 07/09/21 15:14 Pulse 77 07/09/21 19:48 Resp 22 H 07/09/21 19:42 BP 106/73 07/09/21 15:14 Pulse Ox 87 L 07/09/21 19:42 07/09/21 07/09/21 07/09/21 06:59 14:59 22:59 Intake Total 240 / 360 720 / 720 Output Total 860 / 860 Balance -620 / -500 720 / 720 Physical Exam Const: COMMON NORMALS: no acute distress, patient oriented x3 and alert GENERAL APPEARANCE: frail appearing ORIENTATION/CONSCIOUSNESS: Yes awake OTHER: High flow nasal cannula on HENMT: COMMON NORMALS: oropharynx normal Neck/C-Spine: GENERAL: Yes JVD Resp: AUSCULTATION: diminished lung sounds Cardio: COMMON NORMALS: regular rhythm, S1 normal heart sound present, S2 normal heart sound present and No murmurs present (Cardio) RHYTHM: regular rhythm HEART SOUNDS: S1 normal heart sound present and S2 normal heart sound present GI: COMMON NORMALS: Normal to inspection, nondistended, normoactive bowel sounds present, Soft to palpation and non-tender PALPATION: Yes Soft to palpation Extremity: COMMON NORMALS: no joint enlargement and no pedal edema Neuro: COMMON NORMALS: patient oriented x3 and moves all extremities SENSORIUM/ORIENTATION: Yes alert Skin: COMMON NORMALS: no rashes or lesions noted GENERAL SKIN EXAM: no rashes or lesions noted Urinary Catheter Management^: Alvarado: Cath Placed During This Visit: yes Reason for Continuing Indwelling Catheter: Other Urinary Catheter Date of Insertion: 06/28/21 Urinary Catheter Time of Insertion: 08:25 Data : 07/09/21 05:27 07/09/21 05:27 A&P Assessment and plan (1) Acute respiratory failure: Persistent hypoxia. Unable to wean down on requirement of 15 L of oxygen. Wants to think about proceeding with right left heart cath. Continues on Augmentin and antibiotic was broadened with Levaquin. Ordered induced sputum for PCP. Saturation worse this evening down to 87%. Repeat Lasix 60 mg IV push. The other consideration is to proceed with hospice care and he wants to consider returning home with this. Status: Acute Qualifiers: Respiratory failure complication: hypoxia Qualified Code(s): J96.01 - Acute respiratory failure with hypoxia (2) Heart failure: Plan as above Status: Acute (3) Pneumonia: Status: Acute (4) Chronic atrial fibrillation: On metoprolol, Xarelto. Status: Acute Additional A&P Information History of diabetes. Continue sliding scale insulin. Coronary artery disease. Continue beta-golden, statin Multiple other medical problems as outlined in past medical history History of pleural classifications, status post partial resection of left lower lobe Atrial fibrillation on Xarelto Full code He is on Xarelto which will suffice for DVT prophylaxis Attestations Medical Necessity Statement*: Continue admission for assessment management of hypoxic respiratory failure, goals of care discussion, possible right and left heart cath. Coding Level of Care Code Acute Marshmallow Runner for [facility] Diagnoses Acute respiratory failure J96.01 Respiratory failure complication: hypoxia Heart failure I50.9 Pneumonia J18.9 Chronic atrial fibrillation I48.20
[2021-07-09 20:31] LABS: Glucose Point of Care 140 mg/dL (70-110)
[2021-07-09] MEDS: atorvastatin 40 mg Tablet PO (20:57)
[2021-07-09] MEDS: metoprolol tartrate 25 mg Tablet PO (20:57)
[2021-07-09] MEDS: FUROsemide 10 mg/mL SDV 10mL 60 MG IVP (21:32)
[2021-07-10] VITALS (13 sets, daily range): BP systolic 86–116; BP diastolic 55–72; PULSE 73–93; RESP 16–30; TEMP 36.4–36.7; O2SAT 88–96
[2021-07-10] MEDS: ipratropium-albuterol 3 mL Neb INHALATION ×5 (03:20→20:20)
[2021-07-10 06:19] LABS: Eosinophils # 0.2 10^3/uL (0.0-0.8); Eosinophils % 1.8 %; Hemoglobin 10.9 g/dL (11.7-16.6); Lymphocytes # 1.1 10^3/uL (0.8-4.8); Lymphocytes % 8.9 %; Mean Corpuscular HGB Conc 31.1 g/dL (30.0-36.0); Mean Corpuscular Hemoglobin 27.6 pg (28.0-34.0); Mean Corpuscular Volume 88.6 fl (80-94); Monocytes # 0.9 10^3/uL (0.2-0.9); Monocytes % 7.2 %; Neutrophils # 10.04 10^3/uL (1.8-7.7); Neutrophils % 81.6 %; Nucleated Red Blood Cells % 0 %; Platelet Count 230 10^3/cmm (130-400); Red Blood Count 3.95 10^6/uL (4.1-5.3); Red Cell Distribution Width 17.7 % (12.1-15.1); White Blood Count 12.3 10^3/uL (4.0-10.0)
[2021-07-10 06:44] LABS: Alanine Aminotransferase 11 U/L (0-41); Albumin Level 3.2 g/dL (3.5-5.2); Alkaline Phosphatase 71 IU/L (40-130); Aspartate Amino Transferase 18 U/L (0-40); Blood Urea Nitrogen 38 mg/dL (8-23); Calcium 8.9 mg/dL (8.5-10.5); Carbon Dioxide 26 mmol/L (22-29); Chloride 99 mmol/L (98-107); Globulin 2.4 g/dL (1.3-4.6); Glucose 112 mg/dL (65-115); Osmolality Calculated 294 mOsm/kg (285-295); Sodium 137 mmol/L (136-145); Total Bilirubin 1.2 mg/dL (0.15-1.2); Total Protein 5.6 g/dL (6.6-8.7)
[2021-07-10 07:00] LABS: Glucose Point of Care 120 mg/dL (70-110)
[2021-07-10] MEDS: amoxicillin-clav 875-125 mg Tablet 1 TAB PO ×2 (09:44→17:54)
[2021-07-10] MEDS: midodrine 5 mg TABLET 10 MG PO ×3 (09:44→20:06)
[2021-07-10] MEDS: rivaroxaban 10 mg Tablet 20 MG PO (09:45)
[2021-07-10] MEDS: quetiapine 25 mg Tablet 50 MG PO ×2 (09:45→17:54)
[2021-07-10] MEDS: potassium chloride ER 20 mEq Tablet 40 MEQ PO ×2 (09:45→15:28)
[2021-07-10] MEDS: aspirin 81 mg EC Tablet PO (09:45)
--- NOTE | 2021-07-10 11:31 | PC.SOCIAL ---
IMM Update Pg. 2 of IMM updated and reviewed with patient who verbalized understanding. Copy provided.
[2021-07-10 11:59] LABS: Glucose Point of Care 109 mg/dL (70-110)
--- NOTE | 2021-07-10 12:43 | W.PM.OPSUD ---
Surgery/Procedure H&P Update DATE OF PROCEDURE: July 10, 2021 DATE H&P PERFORMED: 07/09/21 H&P UPDATE INFORMATION: I have reviewed H&P completed within last 30 days, I have examined patient prior to procedure and No changes to prior documentation PREOP DIAGNOSIS: Pulmonary hypertension PRIMARY INDICATION FOR PROCEDURE: Pulmonary hypertension PLANNED PROCEDURE: Right heart cath PATIENT REASSESSED PRIOR TO SEDATION, WITH NO CHANGE NOTED: Yes PHYSICAL EXAM: alert, oriented x 3, clear to auscultation bilaterally and regular rate & rhythm AIRWAY EVAL/ANESTHESIA PLAN: ASA III, Monitored Anesthesia, Local Anesthesia, Risks, benefits & alternatives of sedation and/or procedure discussed and Patient agrees to continue as planned
--- NOTE | 2021-07-10 16:17 | P.PN_ITS ---
Subjective Subjective: Interval history: Patient is doing well. He underwent right heart cath today that showed elevated wedge pressure (35mmHg) and PA pressure was 71/40 (51)mmHg. RA pressure was increased at 16mmhg. PA saturation is at 32.3 on 15 liters O2 Vitals/I&O/Wt Last Vital Signs Temp 97.6 F 07/10/21 11:42 Pulse 83 07/10/21 15:41 Resp 20 H 07/10/21 15:41 BP 101/63 07/10/21 11:42 Pulse Ox 93 07/10/21 15:41 07/10/21 07/10/21 07/10/21 06:59 14:59 22:59 Intake Total 600 / 1320 Balance 600 / 1320 Physical Exam Narrative: EXAM NARRATIVE: GENERAL: Patient is alert, awake and oriented x3. NECK: No jugular vein distension. HEENT: No cyanosis. No icterus. No pallor. HEART: Irregularly rate S1 and S2. No murmur, rub or gallop. LUNGS: Reduced breath sounds with bilateral lower lobe inspiratory crackles ABDOMEN: Non tender CENTRAL NERVOUS SYSTEM: Grossly nonfocal. EXTREMITIES: Lower extremities with 1+ edema bilaterally Urinary Catheter Management^: Alvarado: Cath Placed During This Visit: yes Reason for Continuing Indwelling Catheter: Acute Urinary Retention or Obstruction Urinary Catheter Date of Insertion: 06/28/21 Urinary Catheter Time of Insertion: 08:25 Data : 07/11/21 04:29 07/11/21 19:27 A&P Assessment and plan (1) Chronic atrial fibrillation: Status: Acute (2) Acute respiratory failure: Status: Acute Qualifiers: Respiratory failure complication: hypoxia Qualified Code(s): J96.01 - Acute respiratory failure with hypoxia (3) Hypoxemia: Status: Acute (4) Acute respiratory distress: Status: Acute (5) Tricuspid valve regurgitation: Status: Acute Qualifiers: Cardiac valve disease etiology: etiology unspecified Qualified Code(s): I07.1 - Rheumatic tricuspid insufficiency (6) Pulmonary HTN: Status: Acute (7) Type 2 diabetes mellitus: Status: Acute Qualifiers: Diabetes mellitus long-term insulin use: without long-term use (8) Hyperlipidemia: Status: Acute Qualifiers: Hyperlipidemia type: unspecified Qualified Code(s): E78.5 - Hy perlipidemia, unspecified (9) Essential (primary) hypertension: Status: Acute Patient has severe pulmonary hypertension history. Yesterday underwent right heart cath that showed elevated wedge pressures. O sats from PA and RA are not reliable as his O 2 could not be taken off for the procedure. No plans for tadalafil Continue diuretics as wedge pressure is elevated Thank you for involving us with care of this patient. We will continue to follow. Please call with questions. Attestations Medical Necessity Statement*: Care expected to cross 2 midnights Coding Level of Care Code Acute Lactation Specialist for [facility] Fwd Diagnoses Chronic atrial fibrillation I48.20 Acute respiratory failure J96.01 Respiratory failure complication: hypoxia Hypoxemia R09.02 Acute respiratory distress R06.03 Tricuspid valve regurgitation I07.1 Cardiac valve disease etiology: etiology unspecified Pulmonary HTN I27.20 Type 2 diabetes mellitus E11.9 Diabetes mellitus long-term insulin use: without moth exterminator use Hyperlipidemia E78.5 Hyperlipidemia type: unspecified Essential (primary) hypertension I10
[2021-07-10 17:40] LABS: Glucose Point of Care 134 mg/dL (70-110)
--- NOTE | 2021-07-10 19:05 | PC.NURSE ---
Admit Note Patient admitted to CSU room 108 from Med surg via bed. Covering service notified. Patient presents stable. Orders reviewed & will continue to monitor. Patient and/or benefits representative oriented to environment, equipment, and informed of the following as found in the admission booklet: patient rights & responsibilities, visitor policy, hand and respiratory hygiene practice. Other education includes:Plan of care. Patient and/or benefits representative verbalized understanding .
[2021-07-10] MEDS: bumetanide 0.25 mg/mL SDV 4 mL 1 MG IVP (20:06)
[2021-07-10] MEDS: atorvastatin 40 mg Tablet PO (20:06)
[2021-07-10 20:19] LABS: Glucose Point of Care 141 mg/dL (70-110)
--- NOTE | 2021-07-10 20:52 | PM.PN ---
Subjective Subjective: Interval history: After careful consideration he decided to proceed with right heart cath today with cardiology. Otherwise states he is feeling about the same. Vitals/I&O/Wt Last Vital Signs Temp 98.0 F 07/10/21 19:19 Pulse 93 07/10/21 19:19 Resp 30 H 07/10/21 19:19 BP 90/60 07/10/21 19:46 Pulse Ox 91 07/10/21 19:19 07/10/21 07/10/21 07/10/21 06:59 14:59 22:59 Intake Total 600 / 1320 240 / 240 Balance 600 / 1320 240 / 240 Physical Exam Narrative: EXAM NARRATIVE: Sister and family at bedside Const: COMMON NORMALS: no acute distress, patient oriented x3 and alert GENERAL APPEARANCE: frail appearing ORIENTATION/CONSCIOUSNESS: Yes awake OTHER: High flow nasal cannula on HENMT: COMMON NORMALS: oropharynx normal Neck/C-Spine: GENERAL: Yes JVD Resp: AUSCULTATION: diminished lung sounds Cardio: COMMON NORMALS: regular rhythm, S1 normal heart sound present, S2 normal heart sound present and No murmurs present (Cardio) RHYTHM: regular rhythm HEART SOUNDS: S1 normal heart sound present and S2 normal heart sound present GI: COMMON NORMALS: Normal to inspection, nondistended, normoactive bowel sounds present, Soft to palpation and non-tender PALPATION: Yes Soft to palpation Extremity: COMMON NORMALS: no joint enlargement and no pedal edema Neuro: COMMON NORMALS: patient oriented x3 and moves all extremities SENSORIUM/ORIENTATION: Yes alert Skin: COMMON NORMALS: no rashes or lesions noted GENERAL SKIN EXAM: no rashes or lesions noted Urinary Catheter Management^: Alvarado: Cath Placed During This Visit: yes Reason for Continuing Indwelling Catheter: Acute Urinary Retention or Obstruction Urinary Catheter Date of Insertion: 06/28/21 Urinary Catheter Time of Insertion: 08:25 Data : 07/10/21 05:38 07/10/21 05:38 A&P Assessment and plan (1) Acute respiratory failure: Underwent right heart cath today, with pressure suggestive of pulmonary hypertension secondary to L heart failure with elevated wedge pressures with also resultant right heart failure. Transferred to CSU, initiate more aggressive diuresis with IV Bumex, monitor blood pressures. Not a candidate for PDE 5 inhibitor. Continues on Augmentin and antibiotic was broadened with Levaquin. Leukocytosis improving. Ordered induced sputum for PCP. The other consideration is to proceed with hospice care and he ideally wants to consider returning home with this, although this appears may not be possible at the level of oxygen he is currently at I am told. Status: Acute Qualifiers: Respiratory failure complication: hypoxia Qualified Code(s): J96.01 - Acute respiratory failure with hypoxia (2) Heart failure: Plan as above Status: Acute (3) Pneumonia: Status: Acute (4) Chronic atrial fibrillation: On metoprolol, Xarelto. Status: Acute Additional A&P Information History of diabetes. Continue sliding scale insulin. Coronary artery disease. Continue beta-golden, statin Multiple other medical problems as outlined in past medical history History of pleural classifications, status post partial resection of left lower lobe Atrial fibrillation on Xarelto Full code He is on Xarelto which will suffice for DVT prophylaxis Attestations Medical Necessity Statement*: Continue admission for hypoxic respiratory failure secondary to severe pulmonary hypertension due to left heart failure with resultant right heart failure for aggressive diuresis in the setting of soft blood pressures for which may end up requiring pressor support. Coding Level of Care Code Acute Self Contained Behavior Unit Teacher for [facility] Diagnoses Acute respiratory failure J96.01 Respiratory failure complication: hypoxia Heart failure I50.9 Pneumonia J18.9 Chronic atrial fibrillation I48.20
[2021-07-10] MEDS: insulin lispro 100 unit/1 mL SUBCUT (21:21)
[2021-07-11] VITALS (30 sets, daily range): BP systolic 73–114; BP diastolic 46–72; PULSE 75–99; RESP 9–34; TEMP 36.6–36.7; O2SAT 83–97
[2021-07-11] MEDS: ipratropium-albuterol 3 mL Neb INHALATION ×4 (00:31→20:21)
[2021-07-11 04:58] LABS: Basophils % 0.1 %; Eosinophils # 0.2 10^3/uL (0.0-0.8); Hematocrit 34.9 % (42.0-52.0); Hemoglobin 10.8 g/dL (11.7-16.6); Lymphocytes # 1.1 10^3/uL (0.8-4.8); Lymphocytes % 9.5 %; Mean Corpuscular HGB Conc 30.9 g/dL (30.0-36.0); Mean Corpuscular Hemoglobin 27.5 pg (28.0-34.0); Mean Corpuscular Volume 88.8 fl (80-94); Mean Platelet Volume 12.8 fL (7.4-10.4); Monocytes # 0.8 10^3/uL (0.2-0.9); Monocytes % 6.6 %; Neutrophils # 9.63 10^3/uL (1.8-7.7); Neutrophils % 81.3 %; Nucleated Red Blood Cells % 0 %; Platelet Count 231 10^3/cmm (130-400); Red Blood Count 3.93 10^6/uL (4.1-5.3); Red Cell Distribution Width 17.7 % (12.1-15.1); White Blood Count 11.8 10^3/uL (4.0-10.0)
[2021-07-11 05:18] LABS: Alanine Aminotransferase 9 U/L (0-41); Albumin Level 3.2 g/dL (3.5-5.2); Alkaline Phosphatase 74 IU/L (40-130); Anion Gap 13.5 (5-19); Aspartate Amino Transferase 19 U/L (0-40); Blood Urea Nitrogen 35 mg/dL (8-23); Calcium 8.9 mg/dL (8.5-10.5); Carbon Dioxide 28 mmol/L (22-29); Chloride 100 mmol/L (98-107); Globulin 2.2 g/dL (1.3-4.6); Glucose 89 mg/dL (65-115); Magnesium 1.7 mg/dL (1.7-2.3); Osmolality Calculated 293 mOsm/kg (285-295); Potassium 3.5 mmol/L (3.5-5.1); Sodium 138 mmol/L (136-145); Total Bilirubin 1.5 mg/dL (0.15-1.2); Total Protein 5.4 g/dL (6.6-8.7)
[2021-07-11] MEDS: bumetanide 0.25 mg/mL SDV 4 mL 1 MG IVP (06:09)
[2021-07-11 06:36] LABS: Glucose Point of Care 95 mg/dL (70-110)
[2021-07-11] MEDS: rivaroxaban 10 mg Tablet 20 MG PO (08:03)
[2021-07-11] MEDS: potassium chloride ER 20 mEq Tablet 40 MEQ PO (08:03)
[2021-07-11] MEDS: amoxicillin-clav 875-125 mg Tablet 1 TAB PO ×2 (08:03→18:15)
[2021-07-11] MEDS: aspirin 81 mg EC Tablet PO (08:03)
[2021-07-11] MEDS: quetiapine 25 mg Tablet 50 MG PO ×2 (08:03→18:15)
[2021-07-11] MEDS: midodrine 5 mg TABLET 10 MG PO ×3 (08:04→20:25)
[2021-07-11] MEDS: potassium chloride ER 20 mEq Tablet PO (08:46)
--- NOTE | 2021-07-11 10:50 | PC.CHAP ---
Pastoral Care Encounter/Spiritual Assessment Type of Contact [] Declined information director visit [] Patient/Family/Request visit [] Outpatient visit [] Follow-up visit [] Physician referral [] Code/Alert [x] Routine visit [] Staff referral [] Actively dying [] Patient sleeping [] Family support [] [] Out of room [] Palliative care [] [] Receiving care in room [] Pre-surgical visit [] Trauma [] Long length of stay [] ICU visit [] Other: Relational/Emotional Strength [x] Patient feels connected with others/family/visitors/staff [] Distress [] Loneliness/isolation [] Abandonment Spirituality of Patient [] Person of So [] Attends [facility] of their So [x] Believes in Prayer [] Reads Bible or Hoahaoism materials [] There are Spiritual issues to be addressed Store Administrator Interventions [x] Prayer [x] Active listening []x Non-anxious presence [x] Spiritual/emotional support [] Crisis/trauma care [] Spiritual counseling [] Bereavement support [] Provided bereavement packet [] Provided Bible/devotional materials [] Provided toy/stuffed animal, coloring book to patient or family member [] Provided Communion [] Anointing/[place] [] Salvation [x] Completed spiritual assessment [] Other: Impact on Illness or Injury [] Angry [] Fearful [] Anxious [] Often cries [] Exhaustion [] Unable to work [] Unable to attend sabianism [] Unable to walk/stand [] Unable to read [] Unable to drive [] Unable to eat/drink [] Unable to sleep [] Unable to be with family [] Patient intubated [] Other: Summary sat with patient for quite a while.. discussed life- regrets- heaven- ..... being discharged to go home, being placed on Hospice.,nothing more can be done. Has only 2 siblings that will come and stay with him at home. encouraged patient to cherish each day and memory with family. Time spent with patient 20 min
--- NOTE | 2021-07-11 11:19 | PC.NURSE ---
off unit to CPRU for mid line placement.
--- NOTE | 2021-07-11 11:25 | SUR.PREOP ---
TIME OUT FOR MID LINE INSERTION
[2021-07-11 13:00] LABS: Glucose Point of Care 109 mg/dL (70-110)
--- NOTE | 2021-07-11 13:37 | PC.NURSE ---
Bleeding in the midline manual pressure held for 15 mins. pressure dressing applied to right upper Arm. right arm elevated. instructed pt to restrict early movement and use of his right arm for 24 hrs.
--- NOTE | 2021-07-11 15:50 | PC.NURSE ---
Brief unresponsiveness and seizure [facility]. Upon repositioning him, pt started to cough hard and then eyes spaced out and had 5 sec of seizure and unresponsiveness. HR remain in 80s to upper 90s, SR. BP is borderline low. SpO2 is between 82%-88% on 15 L high flow nasal cannula. Notified Dr. Birch regarding the episode. Received order to start pt on heated high flow.
--- NOTE | 2021-07-11 16:00 | PC.NURSE ---
Notified RT regarding Dr order to start pt on Heated High Flow
[2021-07-11] MEDS: levoFLOXacin 750 mg Tablet PO (16:03)
--- NOTE | 2021-07-11 16:32 | P.PN_ITS ---
Subjective Subjective: Interval history: Patient is feeling well. Diuresing well. Vitals/I&O/Wt Last Vital Signs Temp 97.9 F 07/11/21 03:58 Pulse 98 07/11/21 16:00 Resp 20 H 07/11/21 15:45 BP 100/64 07/11/21 16:00 Pulse Ox 88 L 07/11/21 16:00 07/11/21 07/11/21 07/11/21 06:59 14:59 22:59 Intake Total 52 / 52 Output Total 1725 / 1725 850 / 850 Balance -1725 / -1485 -798 / -798 Physical Exam Narrative: EXAM NARRATIVE: GENERAL: Patient is alert, awake and oriented x3. NECK: No jugular vein distension. HEENT: No cyanosis. No icterus. No pallor. HEART: Irregularly rate S1 and S2. No murmur, rub or gallop. LUNGS: Reduced breath sounds with bilateral lower lobe inspiratory crackles ABDOMEN: Non tender CENTRAL NERVOUS SYSTEM: Grossly nonfocal. EXTREMITIES: Lower extremities with 1+ edema bilaterally Urinary Catheter Management^: Alvarado: Cath Placed During This Visit: yes Reason for Continuing Indwelling Catheter: Acute Urinary Retention or Obstruction Urinary Catheter Date of Insertion: 06/28/21 Urinary Catheter Time of Insertion: 08:25 Data : 07/11/21 04:29 07/11/21 19:27 A&P Assessment and plan (1) Chronic atrial fibrillation: Status: Acute (2) Acute respiratory failure: Status: Acute Qualifiers: Respiratory failure complication: hypoxia Qualified Code(s): J96.01 - Acute respiratory failure with hypoxia (3) Hypoxemia: Status: Acute (4) Acute respiratory distress: Status: Acute (5) Tricuspid valve regurgitation: Status: Acute Qualifiers: Cardiac valve disease etiology: etiology unspecified Qualified Code(s): I07.1 - Rheumatic tricuspid insufficiency (6) Pulmonary HTN: Status: Acute (7) Type 2 diabetes mellitus: Status: Acute Qualifiers: Diabetes mellitus usp insulin use: without usp use (8) Hyperlipidemia: Status: Acute Qualifiers: Hyperlipidemia type: unspecified Qualified Code(s): E78.5 - Hyperlipidemia, unspecified (9) Essential (primary) hypertension: Status: Acute Patient has severe pulmonary hypertension history. Underwent right heart cath that showed elevated wedge pressures. O sats from PA and RA are not reliable as his O 2 could not be taken off for the procedure. No plans for tadalafil Diureing well. Continuing with it as wedge pressure was high. Monitor I and Os and kidney function Thank you for involving us with care of this patient. We will continue to follow. Please call with questions. Attestations Medical Necessity Statement*: Care expected to cross 2 midnights. Coding Level of Care Code Acute Elementary Science Teacher for [facility] Fwd Diagnoses Chronic atrial fibrillation I48.20 Acute respiratory failure J96.01 Respiratory failure complication: hypoxia Hypoxemia R09.02 Acute respiratory distress R06.03 Tricuspid valve regurgitation I07.1 Cardiac valve disease etiology: etiology unspecified Pulmonary HTN I27.20 Type 2 diabetes mellitus E11.9 Diabetes mellitus salvage determiner insulin use: without salvage determiner use Hyperlipidemia E78.5 Hyperlipidemia type: unspecified Essential (primary) hypertension I10
[2021-07-11 17:59] LABS: Glucose Point of Care 157 mg/dL (70-110)
[2021-07-11] MEDS: insulin lispro 100 unit/1 mL SUBCUT (18:15)
[2021-07-11] MEDS: polyethylene glycol 3350 Pkt 17 gm PO (18:15)
--- NOTE | 2021-07-11 19:04 | P.PN_ITS ---
Subjective Subjective: Interval history: During my visit he was doing okay, denies chest pain or pressure, stated was breathing all right. Discussed with him findings of right heart cath, diuresis, possible need for pressor support with diuresis. He is agreeable. When readjusted more upright in bed to help him take medications, became briefly syncopal, sinus tachycardia on the monitor which spontaneously resolved. During that time saturations spontaneously decreased as low as the 70s. Placed on bedrest. Started on heated high flow cannula oxygen. We are checking electrolyte levels. Blood pressures are soft. PICC line placed with consideration for need of pressor. Discussed with nursing staff and case mean arterial pressure decreasing below 65 mmHg to notify night physician to start low rate continuous infusion of Levophed. Consider moving to ICU if titration is required. Vitals/I&O/Wt Last Vital Signs Temp 97.9 F 07/11/21 03:58 Pulse 98 07/11/21 16:00 Resp 20 H 07/11/21 15:45 BP 100/64 07/11/21 16:00 Pulse Ox 88 L 07/11/21 16:00 07/11/21 07/11/21 07/11/21 06:59 14:59 22:59 Intake Total 170 / 170 250 / 420 Output Total 1725 / 1725 850 / 850 750 / 1600 Balance -1725 / -1485 -680 / -680 -500 / -1180 Physical Exam Narrative: EXAM NARRATIVE: Sister and family at bedside Const: COMMON NORMALS: no acute distress, patient oriented x3 and alert GENERAL APPEARANCE: frail appearing ORIENTATION/CONSCIOUSNESS: Yes awake OTHER: High flow nasal cannula on HENMT: COMMON NORMALS: oropharynx normal Neck/C-Spine: GENERAL: Yes JVD Resp: AUSCULTATION: diminished lung sounds Cardio: COMMON NORMALS: regular rhythm, S1 normal heart sound present, S2 normal heart sound present and No murmurs present (Cardio) RHYTHM: regular rhythm HEART SOUNDS: S1 normal heart sound present and S2 normal heart sound present GI: COMMON NORMALS: Normal to inspection, nondistended, normoactive bowel s ounds present, Soft to palpation and non-tender PALPATION: Yes Soft to palpation Extremity: COMMON NORMALS: no joint enlargement and no pedal edema Neuro: COMMON NORMALS: patient oriented x3 and moves all extremities SENSORIUM/ORIENTATION: Yes alert Skin: COMMON NORMALS: no rashes or lesions noted GENERAL SKIN EXAM: no rashes or lesions noted Urinary Catheter Management^: Alvarado: Cath Placed During This Visit: yes Reason for Continuing Indwelling Catheter: Acute Urinary Retention or Obstruction Urinary Catheter Date of Insertion: 06/28/21 Urinary Catheter Time of Insertion: 08:25 Data : 07/11/21 04:29 07/11/21 04:29 A&P Assessment and plan (1) Acute respiratory failure: Has been diuresing well with Bumex, -3 L almost in 24 hours. When readjusted more upright in bed to help him take medications, became briefly syncopal, sinus tachycardia on the monitor which spontaneously resolved. During that time saturations spontaneously decreased as low as the 70s. Placed on bedrest. Started on heated high flow cannula oxygen. We are checking electrolyte levels. Blood pressures are soft. PICC line placed with consideration for need of pressor. Discussed with nursing staff and case mean arterial pressure decreasing below 65 mmHg to notify night physician to start low rate continuous infusion of Levophed. Consider moving to ICU if titration is required. Right heart cath 07/10, with pressure suggestive of pulmonary hypertension secondary to L heart failure with elevated wedge pressures with also resultant right heart failure. Transferred to CSU, initiate more aggressive diuresis with IV Bumex, monitor blood pressures. Not a candidate for PDE 5 inhibitor. Continues on Augmentin and antibiotic was broadened with Levaquin. Leukocytosis improving. Ordered induced sputum for PCP. The other consideration is to proceed with hospice care and he ideally wants to consider returning home with this, although this appears may not be possible at the level of oxygen he is currently at I am told. Status: Acute Qualifiers: Respiratory failure complication: hypoxia Qualified Code(s): J96.01 - Acute respiratory failure with hypoxia (2) Heart failure: Plan as above Status: Acute (3) Pneumonia: Status: Acute (4) Chronic atrial fibrillation: On metoprolol, Xarelto. Status: Acute Additional A&P Information History of diabetes. Continue sliding scale insulin. Coronary artery disease. Continue beta-golden, statin Multiple other medical problems as outlined in past medical history History of pleural classifications, status post partial resection of left lower lobe Atrial fibrillation on Xarelto Full code He is on Xarelto which will suffice for DVT prophylaxis Attestations Medical Necessity Statement*: Continue admission for diuresis for left heart diastolic congestive heart failure resulting in severe pulmonary hypertension, leading to right-sided heart failure, hypoxic respiratory failure. Coding Level of Care Code Acute Environmental Engineer for [facility] Diagnoses Acute respiratory failure J96.01 Respiratory failure complication: hypoxia Heart failure I50.9 Pneumonia J18.9 Chronic atrial fibrillation I48.20
--- NOTE | 2021-07-11 19:13 | PC.NURSE ---
Called Dr. Birch regarding pt's BP ranges from75/48 to 87/59, symptomatic, reported lightheadedness. Freq PVC's. Received order to hold the Bumex. Monitor MAP. If MAP is less than 65 to call night provider and may need to start on IV pressor. Hand-off report given to Ad Browning.
[2021-07-11 19:59] LABS: Potassium 3.7 mmol/L (3.5-5.1)
--- NOTE | 2021-07-11 20:15 | PC.NURSE ---
Bedside Shift report Note Pt had a midline placed today. No more bleeding on right upper arm. Pt BP is still on lwer side. Evening Bumex is held per Dr. Birch order. Pt denies any pain. Pt reports of abdominal bloating and stated he did not have a BM for 3 days. Miralax ordered and given. Hand-off report to night nurse Nallely.
[2021-07-11 20:17] LABS: Glucose Point of Care 110 mg/dL (70-110)
[2021-07-11] MEDS: atorvastatin 40 mg Tablet PO (20:25)
[2021-07-12] VITALS (49 sets, daily range): BP systolic 70–131; BP diastolic 40–80; PULSE 68–124; RESP 13–33; TEMP 36.5–36.9; O2SAT 85–96
[2021-07-12] MEDS: cetylpyridinium Lozenge 1 EACH MUCOUS MEM (00:11)
--- NOTE | 2021-07-12 02:52 | PC.NURSE ---
Patient arrived to unit at approx 0130. Patient was awake, alert, BP stable on levophed, other vitals stable. Patient was switched to HHF on arrival and saturation tolerating well. Will continue to monitor.
[2021-07-12] MEDS: ipratropium-albuterol 3 mL Neb INHALATION ×7 (03:07→23:46)
[2021-07-12] MEDS: bumetanide 0.25 mg/mL SDV 4 mL 1 MG IVP (06:03)
[2021-07-12 07:17] LABS: Glucose Point of Care 121 mg/dL (70-110)
[2021-07-12] MEDS: potassium chloride ER 20 mEq Tablet 40 MEQ PO (08:07)
[2021-07-12] MEDS: amoxicillin-clav 875-125 mg Tablet 1 TAB PO ×2 (08:07→17:15)
[2021-07-12] MEDS: rivaroxaban 10 mg Tablet 20 MG PO (08:07)
[2021-07-12] MEDS: aspirin 81 mg EC Tablet PO (08:07)
[2021-07-12] MEDS: quetiapine 25 mg Tablet 50 MG PO ×2 (08:08→17:15)
[2021-07-12] MEDS: polyethylene glycol 3350 Pkt 17 gm PO (08:08)
--- NOTE | 2021-07-12 08:27 | PM.PROC ---
Procedure Note: Date of procedure: 07/10/21 Pre-procedure diagnosis: Pulmonary hypertension Post-procedure diagnosis: other (Severe pulmonary hypertension) Procedure: Right heart catheterization Op report anesthesia: None Performing Provider: Zander Lion Estimated blood loss (mL): 5 Pathology: none sent Condition: stable Disposition: floor Other Information: RIGHT HEART CATH FINDINGS: INDICATION: Pulmonary hypertension/ Cardiac pressure assessment prior to initiating Tadalafil RA PRESSURE: 18/19 (Mean 16mmHg) RV pressure: 82/40 (Mean 57 mmHg) PA pressure: 71/40 (Mean 51mmHg) PCW : 30/48 (mean 35 mmHg) PA saturation:32.3% RA saturation: 36.2% Saturations are not accurate because of high requirement of O2 thus making Cardiac output calculation in accurate. Impression: 1) Elevated right and left sided cardiac pressures 2) Severe pulmonary hypertension likely mixed etiology, however cardiac output calculation not accurate because of high O2 requirement thus PVR can not be assessed accurately Plan: Per primary and pulmonology teams Coding Level of Care Code Acute Field Horticultural Specialty Grower for [facility]
[2021-07-12] MEDS: metoprolol tartrate 25 mg Tablet PO ×2 (08:30→20:05)
[2021-07-12] MEDS: insulin lispro 100 unit/1 mL SUBCUT ×2 (11:03→17:17)
[2021-07-12 11:12] LABS: Glucose Point of Care 156 mg/dL (70-110)
[2021-07-12 11:29] LABS: Basophils % 0.1 %; Eosinophils # 0.2 10^3/uL (0.0-0.8); Eosinophils % 1.2 %; Hematocrit 31.9 % (42.0-52.0); Hemoglobin 9.8 g/dL (11.7-16.6); Lymphocytes % 6.8 %; Mean Corpuscular HGB Conc 30.7 g/dL (30.0-36.0); Mean Corpuscular Hemoglobin 26.9 pg (28.0-34.0); Mean Corpuscular Volume 87.6 fl (80-94); Mean Platelet Volume 11.3 fL (7.4-10.4); Monocytes # 1.1 10^3/uL (0.2-0.9); Monocytes % 7.6 %; Neutrophils # 11.75 10^3/uL (1.8-7.7); Neutrophils % 83.9 %; Nucleated Red Blood Cells % 0 %; Platelet Count 243 10^3/cmm (130-400); Red Blood Count 3.64 10^6/uL (4.1-5.3); Red Cell Distribution Width 17.5 % (12.1-15.1)
[2021-07-12 11:59] LABS: Alanine Aminotransferase 9 U/L (0-41); Albumin Level 3.2 g/dL (3.5-5.2); Alkaline Phosphatase 85 IU/L (40-130); Anion Gap 15.8 (5-19); Aspartate Amino Transferase 20 U/L (0-40); Blood Urea Nitrogen 31 mg/dL (8-23); Calcium 8.6 mg/dL (8.5-10.5); Carbon Dioxide 25 mmol/L (22-29); Chloride 99 mmol/L (98-107); Globulin 2.4 g/dL (1.3-4.6); Glucose 150 mg/dL (65-115); Magnesium 1.9 mg/dL (1.7-2.3); Osmolality Calculated 291 mOsm/kg (285-295); Potassium 3.8 mmol/L (3.5-5.1); Sodium 136 mmol/L (136-145); Total Bilirubin 1.7 mg/dL (0.15-1.2); Total Protein 5.6 g/dL (6.6-8.7)
--- NOTE | 2021-07-12 13:56 | P.PN_ITS ---
Subjective Subjective: Interval history: Not bothered by nothing other than discomfort in his bottom from laying in bed. Denies chest pain. Asks to sit up in chair. Discussed with him this may not be possible at the moment given low blood pressures requiring pressor and syncopal episode yesterday. Concern for orthostasis any further syncopal event. She verbalized understanding. Visited by family. Vitals/I&O/Wt Last Vital Signs Temp 97.7 F 07/12/21 08:00 Pulse 86 07/12/21 12:37 Resp 22 H 07/12/21 12:37 BP 73/40 07/12/21 12:30 Pulse Ox 91 07/12/21 12:37 07/11/21 07/12/21 07/12/21 22:59 06:59 14:59 Intake Total 261.557 / 431.557 172.390 / 603.947 470.257 / 470.257 Output Total 750 / 1600 450 / 2050 Balance -488.443 / -1168.443 -277.610 / -1446.053 470.257 / 470.257 Physical Exam Narrative: EXAM NARRATIVE: Sister and family at bedside Const: COMMON NORMALS: no acute distress, patient oriented x3 and alert GENERAL APPEARANCE: frail appearing ORIENTATION/CONSCIOUSNESS: Yes awake OTHER: Heated high flow nasal cannula on HENMT: COMMON NORMALS: oropharynx normal Neck/C-Spine: GENERAL: Yes JVD Resp: AUSCULTATION: diminished lung sounds Cardio: COMMON NORMALS: regular rhythm, S1 normal heart sound present, S2 normal heart sound present and No murmurs present (Cardio) RHYTHM: regular rhythm HEART SOUNDS: S1 normal heart sound present and S2 normal heart sound present GI: COMMON NORMALS: Normal to inspection, nondistended, normoactive bowel sounds present, Soft to palpation and non-tender PALPATION: Yes Soft to palpation Extremity: COMMON NORMALS: no joint enlargement and no pedal edema Neuro: COMMON NORMALS: patient oriented x3 and moves all extremities SENSORIUM/ORIENTATION: Yes alert Skin: COMMON NORMALS: no rashes or lesions noted GENERAL SKIN EXAM: no rashes or lesions noted Urinary Catheter Management^: Alvarado: Cath Placed During This Visit: yes Reason for Continuing Indwelling Catheter: Acute Urinary Retention or Obstruction Urinary Catheter Date of Insertion: 06/28/21 Urinary Catheter Time of Insertion: 08:25 Data : 07/12/21 11:20 07/12/21 11:20 A&P Assessment and plan (1) Acute respiratory failure: Persistent hypoxia with noted some worsening, although reports some dyspnea like he cannot draw a deep breath despite adequate oxygen saturation. Discussed with him we will add tiny dose of morphine for air hunger. Discussed target of 3-5 L negative balance. He is about 1500 mL negative. Overnight had to be transferred to ICU for pressor support, currently on 4 mcg/min Levophed via right arm PICC line placed 07/11. He is putting out about 2000 mL of urine last 24 hours. Continue Bumex IV, pressor support. Monitor I&O. Reassess, touch base with his pulmonology provider with regards to his condition and response to treatment. Strict orthostatic precautions to prevent syncopal episode. Bedrest. Right heart cath 07/10, with pressure suggestive of pulmonary hypertension secondary to L heart failure with elevated wedge pressures with also resultant right heart failure. Transferred to CSU, initiate more aggressive diuresis with IV Bumex, monitor blood pressures. Not a candidate for PDE 5 inhibitor. Continues on Augmentin and antibiotic was broadened with Levaquin. Ordered induced sputum for PCP. The other consideration is to proceed with hospice care and he ideally wants to consider returning home with this, although this appears may not be possible at the level of oxygen he is currently at I am told. Maximum at skilled nursing with hospice would be 10 L. Status: Acute Qualifiers: Respiratory failure complication: hypoxia Qualified Code(s): J96.01 - Acute respiratory failure with hypoxia (2) Heart failure: Plan as above Status: Acute (3) Pneumonia: Status: Acute (4) Chronic atrial fibrillation: On metoprolol, Xarelto. Status: Acute Additional A&P Information History of diabetes. Continue sliding scale insulin. Coronary artery disease. 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 Acute on chronic hypoxic respiratory failure. Diuresis with pressor support. Coding Level of Care Code Acute Lead Generation Representative for [facility] Diagnoses Acute respiratory failure J96.01 Respiratory failure complication: hypoxia Heart failure I50.9 Pneumonia J18.9 Chronic atrial fibrillation I48.20
--- NOTE | 2021-07-12 14:01 | PC.SOCIAL ---
IMM Update pg 2 of IMM updated and reviewed w/ patient. Copy provided.
[2021-07-12 16:32] LABS: Glucose Point of Care 175 mg/dL (70-110)
[2021-07-12] MEDS: morphine 10 mg/0.5 mL oral liq UD 2.5 MG SUBLINGUAL ×2 (17:32→20:04)
--- NOTE | 2021-07-12 18:04 | NUR.SHIFT ---
Shift Note Frequent safety and comfort rounds continue. Orders and/or nursing care completed as indicated. Patient monitored for response to intervention and treatment(s). Education provided includes[]. Patient and/or collections representative [ResponseToTeaching]. Will continue to monitor. several visitors today with resulting episodes of very short of breath and being on high flow o2 in which has episodes he is going to pass out. noted sats decrease to 68 while talking with family roxinol started
[2021-07-12 19:27] LABS: Glucose Point of Care 126 mg/dL (70-110)
--- NOTE | 2021-07-12 19:55 | PC.NURSE ---
Nurse Note: At approximately 1915, pt's BP = 80/54 with a map of 62. Titrated Levophed from 4mcg to 6mcg. Current BP = 104/66 with a map of 78. Denies any light headedness or visual changes at this time. Currently resting with eyes closed, resp even and non labored, no distress noted.
[2021-07-12] MEDS: atorvastatin 40 mg Tablet PO (20:05)
--- NOTE | 2021-07-12 20:10 | PC.NURSE ---
Nurse Note: Pt c/o SOB at this time. Roxanol given as ordered. All vs and assessments as charted. WIll continue to monitor.
--- NOTE | 2021-07-12 20:25 | PM.PN ---
Subjective Subjective: Interval history: Patient has worsening of shortness of breath. Vitals/I&O/Wt Last Vital Signs Temp 98.3 F 07/12/21 19:24 Pulse 94 07/12/21 19:52 Resp 23 H 07/12/21 19:52 BP 104/66 07/12/21 19:52 Pulse Ox 92 07/12/21 19:52 07/12/21 07/12/21 07/12/21 06:59 14:59 22:59 Intake Total 172.390 / 419.923 6902.257 / 1020.257 149.606 / 1169.863 Output Total 450 / 2050 600 / 600 Balance -277.610 / -3537.957 4372.257 / 1020.257 -450.394 / 569.863 Physical Exam Narrative: EXAM NARRATIVE: GENERAL: Patient is alert, in respiratory distress NECK: No jugular vein distension. HEENT: No cyanosis. No icterus. No pallor. HEART: Irregularly rate S1 and S2. No murmur, rub or gallop. LUNGS: Reduced breath sounds with bilateral lower lobe inspiratory crackles ABDOMEN: Non tender CENTRAL NERVOUS SYSTEM: Grossly nonfocal. EXTREMITIES: Lower extremities with 1+ edema bilaterally Urinary Catheter Management^: Alvarado: Cath Placed During This Visit: yes Reason for Continuing Indwelling Catheter: Acute Urinary Retention or Obstruction Urinary Catheter Date of Insertion: 06/28/21 Urinary Catheter Time of Insertion: 08:25 Data : 07/13/21 03:38 07/13/21 03:38 A&P Assessment and plan (1) Chronic atrial fibrillation: Status: Acute (2) Acute respiratory failure: Status: Acute Qualifiers: Respiratory failure complication: hypoxia Qualified Code(s): J96.01 - Acute respiratory failure with hypoxia (3) Hypoxemia: Status: Acute (4) Acute respiratory distress: Status: Resolved (5) Tricuspid valve regurgitation: Status: Acute Qualifiers: Cardiac valve disease etiology: etiology unspecified Qualified Code(s): I07.1 - Rheumatic tricuspid insufficiency (6) Pulmonary HTN: Status: Acute (7) Type 2 diabetes mellitus: Status: Acute Qualifiers: Diabetes mellitus intermediate insulin use: without intermediate use (8) Hyperlipidemia: Status: Acute Qualifiers: Hyperlipidemia type: unspecified Qualified Code(s): E78.5 - Hyperlipidemia, unspecified (9) Essential (primary) hypertension: Status: Acute Patient has severe pulmonary hypertension history. Underwent right heart cath that showed elevated wedge pressures. O sats from PA and RA are not reliable as his O 2 could not be taken off for the procedure. No plans for tadalafil Patient has decompensated. Plan for possible hospice care. Management per primary team. Thank you for involving us with care of this patient. Cardiology will sign off. Please call with questions. Attestations Medical Necessity Statement*: Care expected to cross 2 midnights. Coding Level of Care Code Acute Mail Superintendent for [facility] Fwd Diagnoses Chronic atrial fibrillation I48.20 Acute respiratory failure J96.01 Respiratory failure complication: hypoxia Hypoxemia R09.02 Acute respiratory distress R06.03 Tricuspid valve regurgitation I07.1 Cardiac valve disease etiology: etiology unspecified Pulmonary HTN I27.20 Type 2 diabetes mellitus E11.9 Diabetes mellitus intermediate insulin use: without intermediate use Hyperlipidemia E78.5 Hyperlipidemia type: unspecified Essential (primary) hypertension I10
--- NOTE | 2021-07-12 22:21 | PC.NURSE ---
Nurse Note: Pt's BP dropped to 80/54; MAP 45. Levophed increased from 6mcg to 8mcg at this time. Current BP 101/72 with MAP of 81. Pt's BP had dropped and pt became extremely fatigued and SOB during repositioning-HR elevated into the 140's. HR currently in the 120's. Pt also c/o inability to sleep. Call placed to Dr. Barron and one time order for claudia received. Pt currently resting with eyes closed; All vs and assessments as charted. Will continue to monitor.
[2021-07-12] MEDS: diphenhydrAMINE 50 mg Capsule PO (22:32)
--- NOTE | 2021-07-12 22:52 | PC.NURSE ---
Nurse Note: Pt's BP bouncing up and down. Last MAP 57. Levophed titrated from 8 mcg to 10 mcg. Current BP 86/56 with MAP of 67. Will continue to monitor.
[2021-07-13] VITALS (23 sets, daily range): BP systolic 87–113; BP diastolic 55–81; PULSE 0–139; RESP 12–37; O2SAT 82–96
[2021-07-13] MEDS: morphine 10 mg/0.5 mL oral liq UD 2.5 MG SUBLINGUAL ×2 (00:10→08:46)
--- NOTE | 2021-07-13 00:16 | PC.NURSE ---
Nurse Note: Pt's 02 sats dropped to the 70s and sustained for 5 min. Pl[address] call to Dr. Barron at this time and received orders for ABG's and BIPAP. Will continue to monitor..
[2021-07-13 00:39] LABS: ABG PCO2 29.1 mmHg (35-45); ABG PH Result 7.54 (7.35-7.45); Alveolar-Arterial Oxygen Gradi 54.2 mmHg (5-10); Arterial Blood Gas Hematocrit 30.7 % (42-52); Base Excess ABG 2.7 mmol/L (-2.0-2.0); Blood Gas Allen Test Pos; Blood Gas Sample Site Radial, right; Blood Gas Sample Type Arterial; Carboxyhemoglobin 1.8 %THgb (0.4-20.1); HCO3 ABG 24.9 mmol/L (22-26); HGB O2 Sat 85.4 % (95-100); Ionized Calcium Level - ABG 1.1 mmol/L (1.1-1.4); Methemoglobin 0.5 % (0.4-1.5); Oxygen Device HAG; Oxygen Saturation ABG 87.4; PO2 ABG 48.7 mmHg (80.0-100.0)
[2021-07-13] MEDS: ipratropium-albuterol 3 mL Neb INHALATION ×2 (04:03→08:25)
[2021-07-13 04:19] LABS: Basophils % 0.2 %; Eosinophils # 0.1 10^3/uL (0.0-0.8); Eosinophils % 0.5 %; Hematocrit 31.8 % (42.0-52.0); Hemoglobin 9.8 g/dL (11.7-16.6); Lymphocytes # 1.7 10^3/uL (0.8-4.8); Lymphocytes % 9.9 %; Mean Corpuscular HGB Conc 30.8 g/dL (30.0-36.0); Mean Corpuscular Hemoglobin 27.1 pg (28.0-34.0); Mean Corpuscular Volume 88.1 fl (80-94); Mean Platelet Volume 12.8 fL (7.4-10.4); Monocytes # 1.4 10^3/uL (0.2-0.9); Monocytes % 8.4 %; Neutrophils # 13.55 10^3/uL (1.8-7.7); Neutrophils % 80.5 %; Nucleated Red Blood Cells % 0 %; Platelet Count 272 10^3/cmm (130-400); Red Blood Count 3.61 10^6/uL (4.1-5.3); Red Cell Distribution Width 17.7 % (12.1-15.1); White Blood Count 16.8 10^3/uL (4.0-10.0)
[2021-07-13 04:46] LABS: Alanine Aminotransferase 10 U/L (0-41); Albumin Level 3.2 g/dL (3.5-5.2); Alkaline Phosphatase 85 IU/L (40-130); Anion Gap 18.3 (5-19); Aspartate Amino Transferase 22 U/L (0-40); Blood Urea Nitrogen 39 mg/dL (8-23); Calcium 8.8 mg/dL (8.5-10.5); Carbon Dioxide 24 mmol/L (22-29); Chloride 95 mmol/L (98-107); Globulin 2.7 g/dL (1.3-4.6); Glucose 131 mg/dL (65-115); Magnesium 1.9 mg/dL (1.7-2.3); Osmolality Calculated 287 mOsm/kg (285-295); Potassium 4.3 mmol/L (3.5-5.1); Sodium 133 mmol/L (136-145); Total Bilirubin 1.7 mg/dL (0.15-1.2); Total Protein 5.9 g/dL (6.6-8.7)
[2021-07-13] MEDS: bumetanide 0.25 mg/mL SDV 4 mL 1 MG IVP (05:07)
--- NOTE | 2021-07-13 05:31 | PC.NURSE ---
Nurse Note: Shift Summary: Pt alert and oriented x4; moves all extremities and follows all commands. Pt very weak and extremely SOB with minimal exertion. Levophed infusing at 4 mcg/min and titrated per protocol. Tachycardic in the 120's to 130's most of shift; pt denies CP. 02 on @ 50L and 75% Fi02/ titrated per RT when Pt's 02 sats dropped into the 70's. Alvarado patent to DD. Output @ 20 ml an hour. Roxanol given 2 times this shift for air hunger and was effective per patient. Pt currently resting with eyes closed, resp even and non labored. All vs and assessments as charted. No distress noted at this time.
[2021-07-13 07:28] LABS: Glucose Point of Care 119 mg/dL (70-110)
--- NOTE | 2021-07-13 09:45 | PC.NURSE ---
This SPN went into pt room to pass meds. Pt stated he could not catch his breath and felt like he was going to black out. This SPN called for help from charge nurse. Charge nurse entered room. Pt had a syncope episode lasting about a minute. Pt was kept calm and comforted by this SPN and charge nurse. Charge nurse exited room and called for family to come in for pt. visited pt and charge nurse returned. Pt was informed that family was on the way. This SPN and another SPN stayed with pt until family arrived. This SPN and other SPN left pt with family at bedside. DIXON Alfonso
--- NOTE | 2021-07-13 10:08 | PC.NURSE ---
Pt oxygen increased to 100% by resp therapist. Roxanol given by charge nurse. DIXON Alfonso
[2021-07-13] MEDS: morphine 10 mg/0.5 mL oral liq UD SUBLINGUAL (12:24)
--- NOTE | 2021-07-13 12:44 | PC.NURSE ---
TRANSFER FROM ICU UP FROM ICU VIA BED WITH BJ AND X2 STUDENTS AT SIDE WELL MULTIPLE FAMILY - RT IN ROOM TO TURN DOWN OXYGEN - CURRENTLY AT 40L & 75% - CURRENTLY ALERT AND ORIENTATED - LUNGS COARSE THROUGHOUT - ABD SOFT - BS PRESENT - MORALES PATENT WITH YELLOW URINE - PIIC TO LEFT ARM INTACT - PIID TO RIGHT WRIST NOTED TO BE INTACT - PULSE CURRENTLY AT 86 - 02 AT 95% - PT REQUESTED WINDOW ROOM - WILL MONITOR - REPOSITIONED IN BED X3 STAFF
--- NOTE | 2021-07-13 12:48 | PC.NURSE ---
Pt given Roxinal by charge nurse then transferred by bed from ICU 6 to Med Surg 266 @ 1245 by this SPN, other SPN and charge nurse.Pt tolerated well. Placed back on high flow once in room. DIXON Alfonso
--- NOTE | 2021-07-13 12:59 | PC.NURSE ---
ROUNDING NOTED PT TO HAVE SHALLOW RESP - OPENS EYES TO THIS NURSE - 02 SAT AT 90% - PULSE 104-110 - MULTIPLE FAMILY REMAINS AT SIDE
[2021-07-13] MEDS: LORazepam 2 mg/mL INJ 1 mL IVP (13:58)
[2021-07-13] MEDS: morphine 4 mg/mL SDV 1 mL IVP (14:07)
--- NOTE | 2021-07-13 14:20 | PC.NURSE ---
CONDITION UPDATE FAMILY REMAINS AT SIDE - APNEA NOTED IN RESP - PREVIOUSLY GIVEN ATIVAN PER MELISSA WATTS AND MORPHINE PER THIS NURSE - WILL CONTINUE TO MONITOR AT PRESENT TIME
--- NOTE | 2021-07-13 14:33 | PC.NURSE ---
TIME OF TIME OF NOTED TO BE 0544 - MULTIPLE FAMILY AT SIDE - VERIFIED PER THIS NURSE AND RANJITH CALI
--- NOTE | 2021-07-13 14:47 | PC.NURSE ---
DR KESHAV PARR NOTIFIED OF TIME OF - FAMILY STILL REMAINS WITH PATIENT
--- NOTE | 2021-07-13 15:09 | PC.NURSE ---
POST MORTEM CARE POST MORTEM CARE PERFORMED PER THIS NURSE - HIGH FLOW OXYGEN REMOVED - PICC LINE REMOVED TO RIGHT UPPER ARM REMOVED - PIID TO LEFT WRIST REMOVED - MORALES REMOVED
--- NOTE | 2021-07-13 15:14 | PC.NURSE ---
[facility] IN [place], [place] NOTIFIED OF NEED OF BODY RETRIEVAL
--- NOTE | 2021-07-13 15:29 | PM.PN ---
Subjective Subjective: Interval history: This morning patient was seen, patient was in moderate respiratory failure, with tachypnea, shallow breathing, intercostal sepsis sternal retractions, 100% FiO2, 60 L, his MAP is less than 65, is on 4 of Levophed, alert to person, to place, to time, he tells me that he is tired, he wants to go home, he does not want to remain here in the hospital, but he knows that he knows that he cannot make at home, he just wants to be comfortable, I discussed our attempts to try to get him home on hospice, however his oxygen requirements continued to increase, his oxygen requirements are increasing, he is requiring increased Levophed, and now evidence of increasing respiratory distress, and is DNR/DNI patient wants to proceed with full comfort care, but wants family at bedside Patient was reexamined early in the morning, all his family is at bedside, his 2 sisters, and her [id number], I discussed patient's current medical management, his worsening respiratory failure in the light of biventricular heart failure, our attempts to diurese him, and to manage his biventricular heart failure, however he continues to have increased oxygen requirements, and increase Levophed needs, is critically ill, his prognosis is poor, our attempts to try to get him home on hospice are proving to be quite difficult, and I do not feel that I could get him home safely. I advised him that I could try to honor his last wish by trying to get him home, however he is on 100% oxygen, there is a high risk of morbidity and mortality during his transport, the ambulance, transport home, and hospice can only do 18 L at home, and he would likely succumb to his illness quite quickly due to his increased oxygen requirements and his poor functional status and that is critically ill. And there might be significance suffering and morbidity mortality associated. However in order to try to honor his last wish, I could discuss with the ambulance team, hospice team, transport parties to try to honor his last wish. However after patient had a discussion with his sisters and [id number] at bedside, they feel that being here in the hospital is best for him, he wants to be with family here, he just wants to be comfortable, he does not want to have aggressive regimens, he wants to proceed with comfort care. He wants to stop all medical intervention. After discussing the risks and benefits, he voiced her signing, his family wishes any, all questions answered, agreed to stop all medical interventions, proceed with comfort care. Procedure should proceed with comfort care, patient 1429 on 07/13/2021, I was notified, family at bedside Vitals/I&O/Wt Last Vital Signs Temp 98.3 F 07/12/21 19:24 Pulse 86 07/13/21 12:00 Resp 12 07/13/21 14:07 BP 88/58 07/13/21 08:00 Pulse Ox 95 07/13/21 12:00 07/13/21 07/13/21 07/13/21 06:59 14:59 22:59 Intake Total 228.854 / 1469.964 Output Total 250 / 850 Balance -21.146 / 619.964 Weight last 48 hrs Weight 57.351 kg Physical Exam Const: GENERAL APPEARANCE: cooperative, in distress, ill appearing, frail appearing and diaphoretic ORIENTATION/CONSCIOUSNESS: Yes awake, Yes oriented to person, Yes oriented to place and Yes oriented to time Resp: EFFORT & INSPECTION: Yes tachypneic, Yes respiratory distress and Yes retractions AUSCULTATION: crackles Cardio: COMMON NORMALS: regular rhythm, S1 normal heart sound present and S2 normal heart sound present RATE: tachycardic RHYTHM: regular rhythm HEART SOUNDS: S1 normal heart sound present and S2 normal heart sound present GI: COMMON NORMALS: Normal to inspection, nondistended, normoactive bowel sounds present, Soft to palpation and non-tender PALPATION: Yes Soft to palpation Extremity: COMMON NORMALS: no pedal edema Neuro: SENSORIUM/ORIENTATION: Yes oriented to person, Yes oriented to place and Yes oriented to time Urinary Catheter Management^: Alvarado: Cath Placed During This Visit: yes Reason for Continuing Indwelling Catheter: Acute Urinary Retention or Obstruction Urinary Catheter Date of Insertion: 06/28/21 Urinary Catheter Time of Insertion: 08:25 Data : 07/13/21 03:38 07/13/21 03:38 A&P Assessment and plan (1) Acute respiratory failure: -Proceeding with comfort care inpatient Persistent hypoxia with noted some worsening, although reports some dyspnea like he cannot draw a deep breath despite adequate oxygen saturation. Discussed with him we will add tiny dose of morphine for air hunger. Discussed target of 3-5 L negative balance. He is about 1500 mL negative. Overnight had to be transferred to ICU for pressor support, currently on 4 mcg/min Levophed via right arm PICC line placed 07/11. He is putting out about 2000 mL of urine last 24 hours. Continue Bumex IV, pressor support. Monitor I&O. Reassess, touch base with his pulmonology provider with regards to his condition and response to treatment. Strict orthostatic precautions to prevent syncopal episode. Bedrest. Right heart cath 07/10, with pressure suggestive of pulmonary hypertension secondary to L heart failure with elevated wedge pressures with also resultant right heart failure. Transferred to CSU, initiate more aggressive diuresis with IV Bumex, monitor blood pressures. Not a candidate for PDE 5 inhibitor. Continues on Augmentin and antibiotic was broadened with Levaquin. Ordered induced sputum for PCP. The other consideration is to proceed with hospice care and he ideally wants to consider returning home with this, although this appears may not be possible at the level of oxygen he is currently at I am told. Maximum at correction with hospice would be 10 L. Status: Acute Qualifiers: Respiratory failure complication: hypoxia Qualified Code(s): J96.01 - Acute respiratory failure with hypoxia (2) Heart failure: Plan as above Status: Acute (3) Pneumonia: Status: Acute (4) Chronic atrial fibrillation: On metoprolol, Xarelto. Status: Acute Additional A&P Information History of diabetes. Continue sliding scale insulin. Coronary artery disease. Continue beta-golden, statin Multiple other medical problems as outlined in past medical history History of pleural classifications, status post partial resection of left lower lobe Atrial fibrillation on Xarelto Full code He is on Xarelto which will suffice for DVT prophylaxis Attestations Medical Necessity Statement*: Patient proceeding with comfort care inpatient for biventricular heart failure, severe pulmonary hypertension, end-stage Coding Level of Care Code Acute Lacemaker for [facility] Diagnoses Acute respiratory failure J96.01 Respiratory failure complication: hypoxia Heart failure I50.9 Pneumonia J18.9 Chronic atrial fibrillation I48.20
--- NOTE | 2021-07-13 16:33 | PC.NURSE ---
[facility] ON FLOOR TO RETRIEVE PT
--- NOTE | 2021-07-31 17:23 | P.DES_ITS ---
Discharge Providers DDS Date of Admission: 06/27/21 05:55 Date Summary Completed: 07/31/21 Attending Provider at Admission: Charly Barron Time of : 14:29 Attending Provider at Discharge: Beck Birch Primary Care Provider: DO SASHA Martinez Diagnoses Hospital Diagnoses (1) Chronic atrial fibrillation: (2) Acute respiratory failure: Qualifiers: Respiratory failure complication: hypoxia Qualified Code(s): J96.01 - Acute respiratory failure with hypoxia (3) Hypoxemia: (4) Acute respiratory distress: (5) Tricuspid valve regurgitation: Qualifiers: Cardiac valve disease etiology: etiology unspecified Qualified Code(s): I07.1 - Rheumatic tricuspid insufficiency (6) Pulmonary HTN: (7) Type 2 diabetes mellitus: Qualifiers: Diabetes mellitus manager intermediate insulin use: without manager intermediate use (8) Hyperlipidemia: Qualifiers: Hyperlipidemia type: unspecified Qualified Code(s): E78.5 - Hyperlipidemia, unspecified (9) Essential (primary) hypertension: Reason for Visit Reason for Visit: SOB Summary Date and Time of Date of : 07/13/21 Time of : 14:29 Summary Summary: This is a 81-year-old male with a past medical history of biventricular heart failure, systolic and diastolic heart failure, pulmonary hypertension, moderate tricuspid valve regurg, history of CABG, chronic atrial fibrillation on Xarelto, type 2 diabetes mellitus, who presents to [facility] for shortness of breath Patient was admitted to [facility] for acute on chronic hypoxic respiratory failure secondary to biventricular heart failure, decompensated heart failure with systolic and diastolic dysfunction, right sided heart failure, and severe pulmonary hypertension, with admitted to the ICU, received broad-spectrum antibiotic therapy, diuretic therapy, high flow oxygen therapy, cardiology was consulted. patient remained on heated high flow oxygen despite optimal medical therapy for over 5 days, had severe pulmonary hypertension, biventricular heart failure, had extensive discussion with family and patient about options available including continued medical therapy and placement to a facility such as [facility] versus hospice. After discussing the risks and benefits, all parties voiced understanding, all questions answered, patient agreed to be discharged home on home hospice. Patient was moved to the general medical floors, received diuresis, oxygen requirements started to improve. Plans were made to discharge the patient on home hospice, however he is oxygen requirements started to increase, and his family could not take care of him at home, thus the process was started for hospice at a half-way. Patient's condition continued to worsen deteriorate, and with increasing oxygen requirements, with drops in blood pressure requiring pressor therapy, so he was moved to the ICU. After discussion with patient, patient proceeded to right heart cath, on 07/10/2021, suggestive of pulmonary hypertension secondary to left-sided heart failure with elevated wedge pressure with also resultant right heart failure, received increased diuresis while in the emergency room. He was not deemed a candidate for PDE 5 inhibitor due to hypotension. Patient's condition continued to worsen, with increased oxygen requirements, increased pressor therapy, increased deconditioning. Patient's clinical condition acutely worsened the morning of 07/13/2021, after discussion with patient and family decision was made to proceed with comfort care, patient was made comfort care, 1429 at 07/13/2021. Additional Data Confirmation of as documented by pronouncing clinician: no pulse Family: at bedside Additional persons at bedside: nursing staff Attending/PCP notified?: Attending notified Was code activated?: No Autopsy requested?: No Advance directives?: No Discharge Plan Discharge Patient Disposition: Condition: Stable DS Attestations Time Spent in /Discharge Care*: less than 30 min Quality - AMI: AMI present?: No Quality - Stroke: CVA present?: No Quality - VTE: VTE present?: No Deep Vein Thrombosis/Pulmonary Embolism Present on Admission: No Coding Level of Care Code Acute Teacher T[facility] for [facility] Fwd Diagnoses Chronic atrial fibrillation I48.20 Acute respiratory failure J96.01 Respiratory failure complication: hypoxia Hypoxemia R09.02 Acute respiratory distress R06.03 Tricuspid valve regurgitation I07.1 Cardiac valve disease etiology: etiology unspecified Pulmonary HTN I27.20 Type 2 diabetes mellitus E11.9 Diabetes mellitus prison insulin use: without manager intermediate use Hyperlipidemia E78.5 Hyperlipidemia type: unspecified Essential (primary) hypertension I10
== END 2021-07-13 16:36 | disposition expired | DRG 291 ==
LOC: ER 05:33 → CSU 06:35 → ICU 06-29 12:15 → MEDSURG 07-02 20:19 → CSU 07-10 18:34 → ICU 07-12 01:09 → MEDSURG 07-13 12:35
PROVIDERS: Family Medicine; Internal Medicine; Admitting Provider Hospitalist; Emergency Provider Emergency Medicine; PCP Emergency Medicine Emergency Medical Services; Visit Provider Internal Medicine
DX: I11.0 Hypertensive heart disease with heart failure (principal); I50.43 Acute on chronic combined systolic (congestive) and diastolic (congestive) heart failure; J18.9 Pneumonia, unspecified organism; J96.21 Acute and chronic respiratory failure with hypoxia; J44.1 Chronic obstructive pulmonary disease with (acute) exacerbation; J44.0 Chronic obstructive pulmonary disease with (acute) lower respiratory infection; I48.20 Chronic atrial fibrillation, unspecified; I25.10 Atherosclerotic heart disease of native coronary artery without angina pectoris; E78.5 Hyperlipidemia, unspecified; Z99.81 Dependence on supplemental oxygen; N40.0 Benign prostatic hyperplasia without lower urinary tract symptoms; I07.1 Rheumatic tricuspid insufficiency; E11.9 Type 2 diabetes mellitus without complications; Z95.1 Presence of aortocoronary bypass graft; I27.20 Pulmonary hypertension, unspecified; I50.84 End stage heart failure; I95.9 Hypotension, unspecified; Z66 Do not resuscitate; Z51.5 Encounter for palliative care
CPT/HCPCS: 36415; 36416; 36569; 36600; 51702; 71045; 71275; 80048; 80051; 80053; 82330; 82728; 82803; 82805; 82962; 83605; 83735; 83880; 84100; 84132; 84145; 84443; 84484; 85025; 85378; 85384; 86140; 87070; 87205; 87426; 87635; 87641; 93005; 93451; 94640; 94660; 96372; 96374; 99285; C1751; C1769; J1644; J1815; J1940; J2060; J2270; J2543; J2920; J3475; J3490; J7512; Q0163; Q9967